=== PATIENT | male | born 1995 | race Caucasian/White ===

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

== ENCOUNTER 2017-05-23 08:37 | Emergency (ER) | payer OTHER ==
[~2017-05-23] VITALS: Ht 177.8 cm; Wt 76.7 kg
[~2017-05-23 08:37] MED LIST changes: +RANI150T9 PO; +SUCR1TAB56 PO
[2017-05-23 08:41] VITALS: Ht 177.8 cm; Wt 76.7 kg
[2017-05-23] MEDS ORDERED: SOD CHLORIDE 0.9% 1,000 ML IV STA (09:08)
--- NOTE | 2017-05-23 09:12 | ERD ---
ER Documentation Chief Complaint Chief Complaint PT with AP, vomiting and SOB since this morning. HPI 21-year-old male presents with a chief complaints of abdominal pain and vomiting 2 starting at 4 hours ago. Patient has taken famotidine but has not tolerated p.o. has had symptoms like this in the past 5 months ago. Vomiting described as nonbilious. No sick contacts. Denies fever, chills, headache, neck stiffness, shortness of breath, chest pain, swelling, diarrhea, constipation. Patient has no other complaints and describes no other associated manifestations. ROS All systems reviewed and are negative except as per history of present illness. Medications Home Meds Active Scripts Ondansetron (Ondansetron Odt) 4 Mg Tab.rapdis, 4 MG PO Q6H Y for NAUSEA AND/OR VOMITING, #10 TAB Prov:GNIA OCAMPO PA-C 05/23/17 Sucralfate* (Carafate*) 1 Gm Tab, 1 GM PO AC MEALS AND BEDTIME, #30 TAB Prov:JAMEY MONTIEL 10/09/16 Ranitidine Hcl* (Zantac*) 150 Mg Tablet, 150 MG PO BID Y for EPIGASTRIC PAIN, # 30 TAB Prov:JAMEY MONTIEL 10/09/16 Reported Medications [Denies] No Conflict Check 04/23/10 Allergies Allergies: Coded Allergies: No Known Drug Allergy (Verified Allergy, Mild, 04/23/10) PMhx/Soc History of Surgery: No Anesthesia Reaction: No Hx Neurological Disorder: No Hx Respiratory Disorders: No Hx Cardiac Disorders: No Hx Psychiatric Problems: No Hx Miscellaneous Medical Probl: No Hx Alcohol Use: No Hx Substance Use: No Hx Tobacco Use: No Physical Exam Vitals Vital Signs Date Time Temp Pulse Resp B/P Pulse Ox O2 Delivery O2 Flow Rate FiO2 05/23/17 11:31 71 18 129/71 99 Room Air 05/23/17 08:41 97.5 84 20 125/77 100 Physical Exam Const: Well-appearing 21-year-old male no acute distress Head: Atraumatic Eyes: Normal Conjunctiva. No jaundice. PERRLA, EOMI, no nystagmus. ENT: Normal External Ears, Nose and Mouth. Oropharynx clear. Neck: Full range of motion..~ No meningismus.. No masses palpated. Resp: Clear to auscultation bilaterally Cardio: Regular rate and rhythm, no murmurs Abd: Soft, nondistended, normal bowel sounds. Mod tenderness in the left lower quadrant region. Mild to no tenderness in the left upper quadrant/ epigastric regions. Negative psoas, obturator, Interiano's signs. No McBurney's point tenderness. No rebound tenderness or guarding. Skin: No petechiae or rashes. No jaundice. Back: No midline or flank tenderness. No CVA tenderness. Ext: No cyanosis, or edema Neur: Awake and alert Psych: Normal Mood and Affect Result Diagram: 05/23/1792705/23/17927 Results 24 hrs Laboratory Tests Test 05/23/17 09:28 White Blood Count 17.210^3/ul Red Blood Count 5.3410^6/ul Hemoglobin 16.1g/dl Hematocrit 46.8% Mean Corpuscular Volume 87.6fl Mean Corpuscular Hemoglobin 30.1pg Mean Corpuscular Hemoglobin Concent 34.4g/dl Red Cell Distribution Width 12.3% Platelet Count 37880^3/UL Mean Platelet Volume 11.9fl Neutrophils % 84.4% Lymphocytes % 9.1% Monocytes % 5.8% Eosinophils % 0.1% Basophils % 0.2% Nucleated Red Blood Cells % 0.0/100WBC Neutrophils # 14.510^3/ul Lymphocytes # 1.610^3/ul Monocytes # 1.010^3/ul Eosinophils # 0.010^3/ul Basophils # 0.010^3/ul Nucleated Red Blood Cells # 0.010^3/ul Prothrombin Time 12.4Sec Prothrombin Time Ratio 1.0 INR International Normalized Ratio 0.92 Activated Partial Thromboplast Time 26.6Sec Urine Color YELLOW Urine Clarity CLEAR Urine pH 5.0 Urine Specific [place] 1.026 Urine Ketones 1+mg/dL Urine Nitrite NEGATIVEmg/dL Urine Bilirubin NEGATIVEmg/dL Urine Urobilinogen NEGATIVEmg/dL Urine Leukocyte Esterase NEGATIVELeu/ul Urine Microscopic RBC 0/HPF Urine Microscopic WBC 1/HPF Urine Mucus FEW/HPF Urine Hemoglobin 1+mg/dL Urine Glucose NEGATIVEmg/dL Urine Total Protein NEGATIVEmg/dl Sodium Level 146mmol/L Potassium Level 3.5mmol/L Chloride Level 107mmol/L Carbon Dioxide Level 25mmol/L Anion Gap 18 Blood Urea Nitrogen 15mg/dl Creatinine 0.70mg/dl Glucose Level 108mg/dl Calcium Level 9.8mg/dl Total Bilirubin 0.7mg/dl Direct Bilirubin 0.00mg/dl Indirect Bilirubin 0.7mg/dl Aspartate Amino Transf (AST/SGOT) 105IU/L Alanine Aminotransferase (ALT/SGPT) 85IU/L Alkaline Phosphatase 124IU/L Total Protein 8.2g/dl Albumin 4.5g/dl Globulin 3.70g/dl Albumin/Globulin Ratio 1.21 Lipase 74U/L Current Medications Medications (Trade) Dose Ordered Sig/Eugenio Route PRN Reason Start Time Stop Time Status Last Admin Dose Admin Sodium Chloride (NS) 1,000 ml @ 1,000 mls/hr Q1H STAT IV 05/23/17 09:08 05/23/17 10:07 DC 05/23/17 09:29 Miscellaneous Medication (Gi Cocktail (2)) 40 ml ONCE ONCE PO 05/23/17 09:30 05/23/17 09:31 DC 05/23/17 09:29 Procedures/MDM 21-year-old male presents with a chief complaint of abdominal pain. Recent alcohol abuse. Labs obtained showed elevated liver enzymes and alk phos. No right upper quadrant tenderness or jaundice and I do not believe that ultrasound is necessary at this time as increased enzymes are most likely secondary to alcohol abuse. I have little suspicion for biliary involvement. CT was obtained due to leukocytosis with left shift. CT was read by the radiologist given the following impression: No acute intra-abdominal process identified. No evidence of bowel obstruction or appendicitis. No renal or ureteral stone. Most of the diagnosis is gastritis versus abdominal pain of unknown etiology. I recommended that the patient follow-up in 8 hours for reevaluation. The patient is well-appearing and tolerates p.o. Repeat abdominal examination was unremarkable for any tenderness. I have little suspicion for ascending cholangitis, cholecystitis, pancreatitis, testicular torsion, mesenteric ischemia, or other acute abdomen. I have spoke with the patient regarding their condition and future management. They have verbally responded that they understand their status and treatment plan. The patients vitals are stable, and their current condition is appropriate for discharge. The patient will be given discharge instructions with return precautions. Discharge medications: Zofran Departure Diagnosis: Primary Impression: Abdominal pain Abdominal location: generalized Qualified Code: R10.84 - Generalized abdominal pain Condition: Stable Additional Instructions: Return in 8 hours for reevaluation. Return the the emergency department immediately if symptoms worsen or change. If you have any questions regarding medications, ask your pharmacist or us before you leave. If any adverse reactions occur while taking your medications, discontinue the treatment and return to the emergency department immediately. Take your medications as directed, and complete the entire course of treatment. GINA OCAMPO PA-C May 23, 2017 09:12
[2017-05-23] MEDS ORDERED: LIDOCAINE/MYLANTA 40 ML BTL PO ONE (09:30)
[2017-05-23 09:47] LABS: BASOPHILS % 0.2 % (0.0-2.0); EOSINOPHILS % 0.1 % (0.0-7.0); HEMATOCRIT 46.8 % (42.0-52.0); HEMOGLOBIN 16.1 g/dl (14.0-18.0); LYMPHOCYTES # 1.6 10^3/ul (0.8-2.9); LYMPHOCYTES % 9.1 % (18.0-55.0); MEAN CORPUSCULAR HEMOGLOBIN 30.1 pg (29.0-33.0); MEAN CORPUSCULAR HGB CONC 34.4 g/dl (32.0-37.0); MEAN CORPUSCULAR VOLUME 87.6 fl (72.0-104.0); MEAN PLATELET VOLUME 11.9 fl (7.4-10.4); MONOCYTES % 5.8 % (0.0-13.0); NEUTROPHIL # 14.5 10^3/ul (1.6-7.5); NEUTROPHILS % 84.4 % (30.0-74.0); PLATELET COUNT 210 10^3/UL (140-415); RED BLOOD COUNT 5.34 10^6/ul (4.70-6.10); RED CELL DISTRIBUTION WIDTH 12.3 % (11.5-14.5); WHITE BLOOD COUNT 17.2 10^3/ul (4.8-10.8)
[2017-05-23 09:58] LABS: ADD UMIC YES; UR ASCORBIC ACID NEGATIVE (NEGATIVE); UR BILIRUBIN (Dip) NEGATIVE (NEGATIVE); UR BLOOD (Dip) 1+ mg/dL (NEGATIVE); UR CLARITY CLEAR (CLEAR); UR COLOR YELLOW (YELLOW); UR GLUCOSE (Dip) NEGATIVE (NEGATIVE); UR KETONES (Dip) 1+ mg/dL (NEGATIVE); UR LEUKOCYTE ESTERASE (Dip) NEGATIVE Leu/ul (NEGATIVE); UR MUCUS FEW /HPF (NONE SEEN); UR NITRITE (Dip) NEGATIVE (NEGATIVE); UR RBC 0 /HPF (0-5); UR SPECIFIC GRAVITY (Dip) 1.026 (1.003-1.030); UR TOTAL PROTEIN (Dip) NEGATIVE (NEGATIVE); UR UROBILINOGEN (Dip) NEGATIVE (NEGATIVE)
[2017-05-23 10:09] LABS: ALBUMIN 4.5 g/dl (3.3-4.9); ALBUMIN/GLOBULIN RATIO 1.21; BILIRUBIN,INDIRECT 0.7 mg/dl (0-1.1); BILIRUBIN,TOTAL 0.7 mg/dl (0.2-1.3); CALCIUM 9.8 mg/dl (8.4-10.2); CREATININE 0.7 mg/dl (0.61-1.24); POTASSIUM 3.5 mmol/L (3.5-5.1); TOTAL PROTEIN 8.2 g/dl (6.1-8.1)
[2017-05-23 10:12] LABS: INR 0.92; PROTIME 12.4 Sec (11.9-14.9)
[2017-05-23 10:13] LABS: PARTIAL THROMBOPLASTIN TIME 26.6 Sec (25.0-35.0)
--- NOTE | 2017-05-23 10:57 | RADRPT ---
PROCEDURE: CT Abdomen and Pelvis without contrast. CLINICAL INDICATION: Abdominal pain TECHNIQUE: CT scan of the abdomen and pelvis was performed on a multidetector high-resolution CT s canner without intravenous contrast. Coronal and sagittal reformatted images were obtained from the axial source images. Images were reviewed on a high-resolution PACS workstation. The total exam CTD I equals 10mGy and the total exam DLP equals 538mGy-cm. One or more of the following dose reduction techniques were used: Automated exposure control, Adjustment of the mA and/or kV according to patien t size, and/or use of iterative reconstruction technique. DICOM images are available. COMPARISON: None. FINDINGS: Evaluation of the solid organs is limited given the lack of intravenous contrast administration. The lung bases are clear. The liver, pancreas, spleen, and adrenals are grossly unremarkable. No focal pericholecystic inflammatory changes. No hydronephrosis. No renal or ureteral stone. No bowel obstruction. Normal-caliber appendix. No significant retroperitoneal lymphadenopathy, ascites or evidence of pneumoperitoneum. IMPRESSION: No acute intra-abdominal process identified. No evidence of bowel obstruction or appendicitis. No renal or ureteral stone. RPTAT: AA .Onur Bond MD, MD Date Time Electronically viewed and signed by .Onur Bond MD, on 05/23/2017 10:56 .T/
[2017-05-23] MEDS ORDERED: ONDA4TAB14 PO (11:08)
[2017-05-23 11:31] VITALS: BP 129/71; PULSE 71; RESP 18
== END 2017-05-23 11:32 | disposition home or self-care (01) ==
LOC: FTE 08:37
DX: R10.84 Generalized abdominal pain (principal)
CPT/HCPCS: 36415; 74176; 80053; 81001; 83690; 85025; 85610; 85730; J7030; Z7502; Z7610

== ENCOUNTER 2017-05-23 19:16 | Inpatient (IN) | payer OTHER ==
[~2017-05-23] VITALS: Ht 175.3 cm; Wt 76.0 kg
[~2017-05-23 19:16] MED LIST changes: +ONDA4TAB14 PO
[2017-05-23] MEDS ORDERED: morphine 4 MG/ML VIAL IV STA (20:14)
[2017-05-23] MEDS ORDERED: SOD CHLORIDE 0.9% 1,000 ML IV STA (20:14)
[2017-05-23] MEDS ORDERED: ONDANSETRON 4 MG INJ IV STA ×2 (20:14→21:23)
--- NOTE | 2017-05-23 21:02 | ERD ---
ER Documentation Chief Complaint Chief Complaint was instructed to return in 8 hours, c/o abd pain w/ vomiting HPI This is a 21-year-old male presents to the ER with left lower quadrant abdominal pain that radiates to his epigastric area which started earlier this morning at 5 AM. Patient came to the ER and was worked up and told to return for abdominal pain recheck. Patient states that pain is significantly worse and he continues to have severe nonbilious nonbloody vomiting. He denies any diarrhea. He denies fevers or chills. Patient did drink a lot of alcohol recently. He has any testicular pain he denies any chest pain or shortness of breath. She denies any constipation and had a normal bowel movement earlier today. Is described as sharp and constant. ROS 12 point review of systems was done, all negative except per HPI. Medications Home Meds Active Scripts Ondansetron (Ondansetron Odt) 4 Mg Tab.rapdis, 4 MG PO Q6H Y for NAUSEA AND/OR VOMITING, #10 TAB Prov:GINA OCAMPO PA-C 05/23/17 Sucralfate* (Carafate*) 1 Gm Tab, 1 GM PO AC MEALS AND BEDTIME, #30 TAB Prov:JAMEY MONTIEL 10/09/16 Ranitidine Hcl* (Zantac*) 150 Mg Tablet, 150 MG PO BID Y for EPIGASTRIC PAIN, # 30 TAB Prov:JAMEY MONTIEL 10/09/16 Reported Medications [Denies] No Conflict Check 04/23/10 Allergies Allergies: Coded Allergies: No Known Drug Allergy (Verified Allergy, Mild, 04/23/10) PMhx/Soc Medical and Surgical Hx: pt denies Medical Hx, pt denies Surgical Hx History of Surgery: No Anesthesia Reaction: No Hx Neurological Disorder: No Hx Respiratory Disorders: No Hx Cardiac Disorders: No Hx Psychiatric Problems: No Hx Miscellaneous Medical Probl: No Hx Alcohol Use: No Hx Substance Use: No Hx Tobacco Use: No Smoking Status: Never smoker Physical Exam Vitals Vital Signs Date Time Temp Pulse Resp B/P Pulse Ox O2 Delivery O2 Flow Rate FiO2 05/23/17 19:24 97.6 109 20 128/74 98 Physical Exam GENERAL: The patient is well developed and appropriate for usual state of health , in no apparent distress. HEENT: Atraumatic. CHEST: Clear to auscultation bilaterally. There are no rales, wheezes or rhonchi. HEART: Regular rate and rhythm. No murmurs, clicks, rubs or gallops. ABDOMEN: ttp throughout entire abdomen. Good bowel sounds. No rebound or guarding. No gross peritonitis. No gross organomegaly or masses. No Interiano sign or McBurney point tenderness. BACK: No midline or flank tenderness. NEURO: Alert and oriented. . SKIN: There is no apparent rash or petechia. The skin is warm and dry. Result Diagram: 05/23/17202905/23/172029 Results 24 hrs Laboratory Tests Test 05/23/17 20:30 White Blood Count 21.210^3/ul Red Blood Count 6.0310^6/ul Hemoglobin 18.2g/dl Hematocrit 52.5% Mean Corpuscular Volume 87.1fl Mean Corpuscular Hemoglobin 30.2pg Mean Corpuscular Hemoglobin Concent 34.7g/dl Red Cell Distribution Width 12.1% Platelet Count 52781^3/UL Mean Platelet Volume 11.8fl Neutrophils % 84.7% Lymphocytes % 8.7% Monocytes % 5.8% Eosinophils % 0.0% Basophils % 0.2% Nucleated Red Blood Cells % 0.0/100WBC Neutrophils # 17.910^3/ul Lymphocytes # 1.910^3/ul Monocytes # 1.210^3/ul Eosinophils # 0.010^3/ul Basophils # 0.010^3/ul Nucleated Red Blood Cells # 0.010^3/ul Sodium Level 144mmol/L Potassium Level 3.4mmol/L Chloride Level 103mmol/L Carbon Dioxide Level 27mmol/L Anion Gap 17 Blood Urea Nitrogen 9mg/dl Creatinine 0.86mg/dl Glucose Level 176mg/dl Calcium Level 10.0mg/dl Total Bilirubin 2.5mg/dl Direct Bilirubin 0.70mg/dl Indirect Bilirubin 1.8mg/dl Aspartate Amino Transf (AST/SGOT) 525IU/L Alanine Aminotransferase (ALT/SGPT) 518IU/L Alkaline Phosphatase 161IU/L Troponin I < 0.012ng/ml Total Protein 8.5g/dl Albumin 5.0g/dl Globulin 3.50g/dl Albumin/Globulin Ratio 1.42 Lipase 79656H/L Current Medications Medications (Trade) Dose Ordered Sig/Eugenio Route PRN Reason Start Time Stop Time Status Last Admin Dose Admin Sodium Chloride (NS) 1,000 ml @ 1,000 mls/hr Q1H STAT IV 05/23/17 20:14 05/23/17 21:13 DC 05/23/17 20:38 Morphine Sulfate (morphine) 6 mg ONCE STAT IV 05/23/17 20:14 05/23/17 20:20 DC 05/23/17 20:38 Ondansetron HCl (Zofran Inj) 4 mg ONCE STAT IV 05/23/17 20:14 05/23/17 20:20 DC 05/23/17 20:38 Ketorolac Tromethamine (Toradol) 30 mg ONCE STAT IV 05/23/17 21:06 05/23/17 21:07 DC 05/23/17 21:13 Scopolamine (Transderm-Scop) 1 patch ONCE ONCE TRANSDERM 05/23/17 21:30 05/23/17 21:31 DC 05/23/17 21:29 Ondansetron HCl 4 mg 4 mg ONCE STAT IV 05/23/17 21:23 05/23/17 21:24 DC 05/23/17 21:25 Sodium Chloride (NS) 1,000 ml @ 1,000 mls/hr Q1H ONCE IV 05/23/17 21:30 05/23/17 22:29 05/23/17 21:29 Hydromorphone HCl (Dilaudid) 1 mg ONCE STAT IV 05/23/17 22:02 05/23/17 22:03 DC 05/23/17 22:05 Procedures/MDM EKG was done [address] elevation no T-wave inversion. This EKG was read by Dr. Ly ER course patient was in a significant amount of pain and he was given morphine , Toradol and Dilaudid to control his pain. He was also given 2 L of fluids and Zofran , scopolamine patch to control his vomiting. Blood work was repeated and patient once again was noted to have elevated liver enzymes and now had elevated bilirubin with elevated lipase. Patient was ordered and there is evidence of a gallstone. Patient is likely suffering from acute cholecystitis and gallbladder pancreatitis. Patient will be admitted for further management and care. Departure Diagnosis: Primary Impression: Cholecystitis Additional Impression: Acute gallstone pancreatitis Condition: Stable SHERRIE,KEYA C May 23, 2017 21:02
[2017-05-23] MEDS ORDERED: KETOROLAC 30 MG INJ IV STA (21:06)
[2017-05-23 21:07] LABS: BASOPHILS % 0.2 % (0.0-2.0); HEMATOCRIT 52.5 % (42.0-52.0); HEMOGLOBIN 18.2 g/dl (14.0-18.0); LYMPHOCYTES # 1.9 10^3/ul (0.8-2.9); LYMPHOCYTES % 8.7 % (18.0-55.0); MEAN CORPUSCULAR HEMOGLOBIN 30.2 pg (29.0-33.0); MEAN CORPUSCULAR HGB CONC 34.7 g/dl (32.0-37.0); MEAN CORPUSCULAR VOLUME 87.1 fl (72.0-104.0); MEAN PLATELET VOLUME 11.8 fl (7.4-10.4); MONOCYTE # 1.2 10^3/ul (0.3-0.9); MONOCYTES % 5.8 % (0.0-13.0); NEUTROPHIL # 17.9 10^3/ul (1.6-7.5); NEUTROPHILS % 84.7 % (30.0-74.0); PLATELET COUNT 239 10^3/UL (140-415); RED BLOOD COUNT 6.03 10^6/ul (4.70-6.10); RED CELL DISTRIBUTION WIDTH 12.1 % (11.5-14.5); WHITE BLOOD COUNT 21.2 10^3/ul (4.8-10.8)
[2017-05-23] MEDS ORDERED: SOD CHLORIDE 0.9% 1,000 ML IV ONE (21:30)
[2017-05-23] MEDS ORDERED: SCOPOLAMINE 1.5 MG PATCH TRANSDERM ONE (21:30)
[2017-05-23 21:36] LABS: ALBUMIN/GLOBULIN RATIO 1.42; BILIRUBIN,DIRECT 0.7 mg/dl (0.00-0.20); BILIRUBIN,INDIRECT 1.8 mg/dl (0-1.1); BILIRUBIN,TOTAL 2.5 mg/dl (0.2-1.3); CREATININE 0.86 mg/dl (0.61-1.24); POTASSIUM 3.4 mmol/L (3.5-5.1); TOTAL PROTEIN 8.5 g/dl (6.1-8.1)
--- NOTE | 2017-05-23 21:45 | RADRPT ---
PROCEDURE: US Abdomen Right Upper Quadrant. CLINICAL INDICATION: Abdominal pain TECHNIQUE: Multiple real-time longitudinal and transverse images were acquired of the patient's [facility] upper quadrant abdomen utilizing a curved array transducer. COMPARISON: Previous CT done earlier on the same date. The previous CT was unremarkable. FINDINGS: Liver: normal in size and echotexture. There is no focal lesion. The hepatic and portal veins appea r patent and there is normal directional flow in the main portal vein Gallbladder: A 1.7 cm in diameter gallstone is seen within the gallbladder neck. There is some sludg e layering within the gallbladder. The gallbladder wall is not thickened measuring 2.4 mm. Bile ducts: There is no significant intra or extrahepatic bile duct dilatation. No choledocholiths a re seen within the visualized portions. The common bile duct measures 4.7 mm in cross diameter. Pancreas: The visualized head and body of the pancreas appear prominent in size. The possibility of acute pancreatitis. Right adrenal : No mass is identified. Right kidney: Normal in echotexture andl in size. The right kidney measures 10.7 cm in length. No ma ss, pathological calcification, or hydronephrosis is evident. Peritoneum: There is no free intraperitoneal fluid IMPRESSION: 1. A 1.7 cm in diameter gallstone is seen within the gallbladder neck and sludge is seen to layer w ithin the gallbladder. The gallbladder wall is not thickened. 2. No bile duct dilatation is evident but the visualized head and body of the pancreas appear promi nent for which mild acute pancreatitis cannot be excluded. 3. The liver and right kidney appear unremarkable. 4. No free intraperitoneal fluid is identified. Physician Gio Date Time Electronically viewed and signed by Physician Gio on 05/23/2017 21:44 /
[2017-05-23] MEDS ORDERED: HYDROmorphONE 1 MG/ML SYG IV STA (22:02)
[2017-05-23] MEDS ORDERED: PIPER-TAZO 3.375 GM IV (PMX) 50 ML IV ONE (23:00)
[2017-05-23] MEDS ORDERED: NACL 0.9% 3 ML SYG IV SCH (23:30)
[2017-05-23] MEDS: SOD CHLORIDE 0.9% 1,000 ML IV SCH (23:58)
[2017-05-24] VITALS (10 sets, daily range): BP systolic 123–141; BP diastolic 66–94; PULSE 118–136; RESP 15–29; TEMP 98.3; Ht 175.3 cm; Wt 76.0 kg
[2017-05-24 00:06] LABS: PROTIME 13.3 Sec (11.9-14.9)
[2017-05-24 00:07] LABS: PARTIAL THROMBOPLASTIN TIME 23.5 Sec (25.0-35.0)
[2017-05-24] MEDS: HYDROmorphONE 0.5 MG/0.5 ML SYG IV PRN (01:17)
--- NOTE | 2017-05-24 03:11 | ERD ---
ER Documentation Chief Complaint Chief Complaint Abdominal pain HPI The patient is a 21-year-old male, was seen earlier today for abdominal pain and advised to return in 8 hours for reevaluation. The pain is worsening, associated with vomiting. He was seen in ED 2 and I was asked to see the patient due to abdominal pain. He denies fever, chills, neck pain, chest pain. The pain is diffuse but more tender at the upper abdomen, denies diarrhea, constipation, dysuria. He does not smoke nor drink Medical/surgical history: None ROS All systems reviewed and are negative except as per history of present illness. Medications Home Meds Active Scripts Ondansetron (Ondansetron Odt) 4 Mg Tab.rapdis, 4 MG PO Q6H Y for NAUSEA AND/OR VOMITING, #10 TAB Prov:GINA OCAMPO PA-C 05/23/17 Sucralfate* (Carafate*) 1 Gm Tab, 1 GM PO AC MEALS AND BEDTIME, #30 TAB Prov:JAMEY MONTIEL 10/09/16 Ranitidine Hcl* (Zantac*) 150 Mg Tablet, 150 MG PO BID Y for EPIGASTRIC PAIN, # 30 TAB Prov:JAMEY MONTIEL 10/09/16 Reported Medications [Denies] No Conflict Check 04/23/10 Allergies Allergies: Coded Allergies: No Known Drug Allergy (Verified Allergy, Mild, 04/23/10) PMhx/Soc Medical and Surgical Hx: pt denies Medical Hx, pt denies Surgical Hx History of Surgery: No Anesthesia Reaction: No Hx Neurological Disorder: No Hx Respiratory Disorders: No Hx Cardiac Disorders: No Hx Psychiatric Problems: No Hx Miscellaneous Medical Probl: No Hx Alcohol Use: No Hx Substance Use: No Hx Tobacco Use: No Smoking Status: Never smoker Physical Exam Vitals Vital Signs Date Time Temp Pulse Resp B/P Pulse Ox O2 Delivery O2 Flow Rate FiO2 05/23/17 23:20 66 16 98 Room Air 05/23/17 19:24 97.6 109 20 128/74 98 Physical Exam Const: No acute distress. Head: Atraumatic. Eyes: Normal Conjunctiva. ENT: Normal External Ears, Nose and Mouth. Neck: Full range of motion. No meningismus. Resp: Clear to auscultation bilaterally. Cardio: Regular rate and rhythm. Abd: Soft, non distended, normal bowel sounds, diffuse abdominal tenderness, more tenderness at epigastric and right upper quadrant, no rigidity , rebound, CVA tenderness Skin: No petechiae or rashes. Back: No midline or flank tenderness. Ext: No cyanosis, or edema. Neur: Awake and alert. No focal deficit Psych: Normal Mood and Affect. Result Diagram: 05/23/17202905/23/172029 Results 24 hrs Laboratory Tests Test 05/23/17 20:30 White Blood Count 21.210^3/ul Red Blood Count 6.0310^6/ul Hemoglobin 18.2g/dl Hematocrit 52.5% Mean Corpuscular Volume 87.1fl Mean Corpuscular Hemoglobin 30.2pg Mean Corpuscular Hemoglobin Concent 34.7g/dl Red Cell Distribution Width 12.1% Platelet Count 15607^3/UL Mean Platelet Volume 11.8fl Neutrophils % 84.7% Lymphocytes % 8.7% Monocytes % 5.8% Eosinophils % 0.0% Basophils % 0.2% Nucleated Red Blood Cells % 0.0/100WBC Neutrophils # 17.910^3/ul Lymphocytes # 1.910^3/ul Monocytes # 1.210^3/ul Eosinophils # 0.010^3/ul Basophils # 0.010^3/ul Nucleated Red Blood Cells # 0.010^3/ul Prothrombin Time 13.3Sec Prothrombin Time Ratio 1.0 INR International Normalized Ratio 1.00 Activated Partial Thromboplast Time 23.5Sec Sodium Level 144mmol/L Potassium Level 3.4mmol/L Chloride Level 103mmol/L Carbon Dioxide Level 27mmol/L Anion Gap 17 Blood Urea Nitrogen 9mg/dl Creatinine 0.86mg/dl Glucose Level 176mg/dl Calcium Level 10.0mg/dl Total Bilirubin 2.5mg/dl Direct Bilirubin 0.70mg/dl Indirect Bilirubin 1.8mg/dl Aspartate Amino Transf (AST/SGOT) 525IU/L Alanine Aminotransferase (ALT/SGPT) 518IU/L Alkaline Phosphatase 161IU/L Troponin I < 0.012ng/ml Total Protein 8.5g/dl Albumin 5.0g/dl Globulin 3.50g/dl Albumin/Globulin Ratio 1.42 Lipase 10757G/L Current Medications Medications (Trade) Dose Ordered Sig/Eugenio Route PRN Reason Start Time Stop Time Status Last Admin Dose Admin Sodium Chloride (NS) 1,000 ml @ 1,000 mls/hr Q1H STAT IV 05/23/17 20:14 05/23/17 21:13 DC 05/23/17 20:38 Morphine Sulfate (morphine) 6 mg ONCE STAT IV 05/23/17 20:14 05/23/17 20:20 DC 05/23/17 20:38 Ondansetron HCl (Zofran Inj) 4 mg ONCE STAT IV 05/23/17 20:14 05/23/17 20:20 DC 05/23/17 20:38 Ketorolac Tromethamine (Toradol) 30 mg ONCE STAT IV 05/23/17 21:06 05/23/17 21:07 DC 05/23/17 21:13 Scopolamine (Transderm-Scop) 1 patch ONCE ONCE TRANSDERM 05/23/17 21:30 05/23/17 21:31 DC 05/23/17 21:29 Ondansetron HCl 4 mg 4 mg ONCE STAT IV 05/23/17 21:23 05/23/17 21:24 DC 05/23/17 21:25 Sodium Chloride (NS) 1,000 ml @ 1,000 mls/hr Q1H ONCE IV 05/23/17 21:30 05/23/17 22:29 DC 05/23/17 21:29 Hydromorphone HCl 1 mg 1 mg ONCE STAT IV 05/23/17 22:02 05/23/17 22:03 DC 05/23/17 22:05 Piperacillin Sod/ Tazobactam Sod (Zosyn 3.375gm/ 50 ml (Pmx)) 50 ml @ 100 mls/hr ONCE ONCE IV 05/23/17 23:00 05/23/17 23:29 DC 05/23/17 22:40 Procedures/[place] [id number] Radiology Main Line: [phone] DIAGNOSTIC IMAGING REPORT Patient: SAHIL RIVAS : 1995 Age: 21 Sex: M MR #: [id number] DOS: 05/23/172013 Ordering MD: KEYA BALDERAS PA-C Location: [facility] Room/Bed: PROCEDURE: US Abdomen Right Upper Quadrant. CLINICAL INDICATION: Abdominal pain TECHNIQUE: Multiple real-time longitudinal and transverse images were acquired of the patient's right upper quadrant abdomen utilizing a curved array transducer. COMPARISON: Previous CT done earlier on the same date. The previous CT was unremarkable. FINDINGS: Liver: normal in size and echotexture. There is no focal lesion. The hepatic and portal veins appear patent and there is normal directional flow in the main portal vein Gallbladder: A 1.7 cm in diameter gallstone is seen within the gallbladder neck. There is some sludge layering within the gallbladder. The gallbladder wall is not thickened measuring 2.4 mm. Bile ducts: There is no significant intra or extrahepatic bile duct dilatation. No choledocholiths are seen within the visualized portions. The common bile duct measures 4.7 mm in cross diameter. Pancreas: The visualized head and body of the pancreas appear prominent in size. The possibility of acute pancreatitis. Right adrenal : No mass is identified. Right kidney: Normal in echotexture andl in size. The right kidney measures 10.7 cm in length. No mass, pathological calcification, or hydronephrosis is evident. Peritoneum: There is no free intraperitoneal fluid IMPRESSION: 1. A 1.7 cm in diameter gallstone is seen within the gallbladder neck and sludge is seen to layer within the gallbladder. The gallbladder wall is not thickened. 2. No bile duct dilatation is evident but the visualized head and body of the pancreas appear prominent for which mild acute pancreatitis cannot be excluded. 3. The liver and right kidney appear unremarkable. 4. No free intraperitoneal fluid is identified. Physician Gio Date Time Electronically viewed and signed by Physician Gio on 05/23/2017 21:44 RH/ CC: KEYA BALDERAS EKG: Read by emergency physician Rate/Rhythm: Normal Sinus Rhythm 66 beats/min QRS, ST, T-waves: No ST elevation, no T inversion, RWA Impression: Abnormal EKG He already had a CT scan abdominopelvic earlier today MEDICAL MAKING DECISION: The patient is a 21-year-old male, presenting with acute gallstone pancreatitis, suspected choledocholithiasis, acute hypokalemia. He was treated with Zosyn IV for acute gallstone pancreatitis, 1 L normal saline IV for clinical dehydration, Dilaudid 1 mg IV, Toradol 30 mg IV, morphine 6 mg IV for pain and Zofran 4 mg IV for nausea and potassium chloride 20 mEq IV for acute hypokalemia with good response The differential diagnoses considered include but are not limited to cholelithiasis, cholecystitis, cystitis, pancreatitis, hepatitis, gastritis, peptic ulcer disease, gastric ulcer, appendicitis, diverticulitis, cholangitis, choledocholithiasis, partial small bowel obstruction. Consultation: I discussed the patient with the on-call general surgeon at 11:20 pm, who was made aware of the labs, the treatment, the patient condition. He accepted the consult I discussed the patient with the GI Dr Schultz, who was made aware of the labs, the treatment, the patient condition. He accepted the consult Departure Diagnosis: Primary Impression: Acute gallstone pancreatitis Additional Impressions: Hypokalemia Abnormal LFTs Condition: Stable Comments I discussed the findings with the patient. I discussed the patient with the hospitalist Dr. Reyes at 11:25 PM who was made aware of the lab, the treatment , my discussion with the surgeon. He asked me to contact Dr. Schultz. The patient is admitted to [facility] Disclaimer: Inadvertent spelling and grammatical errors are likely due to EHR/ dictation software use and do not reflect on the overall quality of patient care. Also, please note that the electronic time recorded on this note does not necessarily reflect the actual time of the patient encounter. GINA MARIANO MD May 24, 2017 03:10
[2017-05-24] MEDS: HYDROmorphONE 1 MG/ML SYG IV PRN ×6 (04:22→21:08)
[2017-05-24] MEDS: SOD CHLORIDE 0.9% 1,000 ML IV SCH ×6 (04:22→23:28)
--- NOTE | 2017-05-24 04:47 | HP ---
Date/Time of Note Date/Time of Note DATE: 05/24/17 TIME: 04:32 Assessment/Plan VTE Prophylaxis VTE Prophylaxis Intervention: SCD's Lines/Catheters IV C[facility]ter Type [facility]from [facility]): Peripheral IV Urinary Cath still in place: No Assessment/Plan Chief Complaint/Hosp Course This is a 21-year-old male being admitted to the [facility] floor for: #1 gallstone pancreatitis: Ultrasound of the gallbladder showed a 1.7 cm gallstone at the neck of the gallbladder and signs of acute pink otitis. Patient's lipase is markedly elevated at 56,273. He also has an obstructive pattern of his LFTs. The current time we will keep the patient n.p.o. for bowel rest. Will provide him aggressive IV fluid hydration. Dilaudid for pain control. Will order MRCP for the a.m. General surgery and GI have been consulted via the ED. Check lipid panel and ethanol level. #2 leukocytosis: At the current time patient is afebrile. There are no signs of acute cholecystitis on the gallbladder ultrasound. He did receive a dose of Zosyn in the ED. At the current time I will hold off on giving any further antibiotics as I think this may be reactive in nature. Will repeat CBC in the a.m. any signs of infection will initiate antibiotics again. #3 DVT GI prophylaxis: SCDs, no GI prophylaxis indicated Further treatment strategy will be implemented as per the clinical course Problems: HPI/ROS Admit Date/Time Admit Date/Time May 23, 2017 at 23:23 Hx of Present Illness Chief complaint: Abdominal pain This is a 21-year-old male presents to the ER with left lower quadrant abdominal pain that radiates to his epigastric area which started earlier this morning at 5 AM. Patient came to the ER and was worked up and told to return for abdominal pain recheck. Patient states that pain is significantly worse and he continues to have severe nonbilious nonbloody vomiting. He stated the pain is sharp constant. He denies any diarrhea. He denies fevers or chills. Patient did drink a lot of alcohol recently. he denies any chest pain or shortness of breath. She denies any constipation and had a normal bowel movement earlier today. Allergies: NKDA Medications: See KENDAL WILKINSON Const: As per HPI Eyes : No pain discharge or redness or change in visual acuity ENT: No pain, sore throat, congestion, congestion, dysphagia or discharge Respiratory: No shortness of breath, cough, sputum, wheezing, or pleuritic pain Cardiovascular: No chest pain, palpitation, PND, or edema GI : As per HPI Genitourinary: No dysuria, hematuria, flank pain , discharge or CVA tenderness Musculoskeletal: No joint pain, back pain, neck pain, restricted range of motion in neck or joints Skin: No rash, bruising or hives Neuro: No headache, dizziness, syncope, seizure, focal weakness Endocrine: No polyuria, polydipsia, temperature intolerance Psych: No hallucination, depression, anxiety or suicidal ideation PMH/Family/Social Past Medical History Medical History: no pertinent history Past Surgical History Past Surgical Hx: no surgical history Family History Significant Family History: no pertinent family hx Social History Alcohol Use: occasionally Smoking Status: Never smoker Drug Use: none Exam/Review of Systems Vital Signs Vitals Vital Signs Date Time Temp Pulse Resp B/P Pulse Ox O2 Delivery O2 Flow Rate FiO2 05/24/17 03:06 98.4 67 18 141/66 100 05/24/17 00:04 Room Air Exam Exam General: She is lying in bed in moderate distress from pain in the abdomen HEENT: Atraumatic, normocephalic. The pupils are equal, round and reactive. Extraocular motor are intact Neck: Supple with full range of motion. No rigidity or meningismus Chest: Nontender Lungs: Clear to auscultation bilaterally no crackles rales or wheezing Heart: Normal S1-S2, Regular rhythm and rate. No murmur, S3, or S4 Abdomen: Soft, tender to palpation at the epigastric and right upper quadrant region, normal bowel sounds Extremities: Normal to inspection, no edema no cyanosis Neurologic: Normal mental status, speech normal, cranial nerves II through XII are intact, motor and sensory are intact, no focal weakness Additional Comments PROCEDURE: US Abdomen Right Upper Quadrant. CLINICAL INDICATION: Abdominal pain TECHNIQUE: Multiple real-time longitudinal and transverse images were acquired of the patient's right upper quadrant abdomen utilizing a curved array transducer. COMPARISON: Previous CT done earlier on the same date. The previous CT was unremarkable. FINDINGS: Liver: normal in size and echotexture. There is no focal lesion. The hepatic and portal veins appear patent and there is normal directional flow in the main portal vein Gallbladder: A 1.7 cm in diameter gallstone is seen within the gallbladder neck. There is some sludge layering within the gallbladder. The gallbladder wall is not thickened measuring 2.4 mm. Bile ducts: There is no significant intra or extrahepatic bile duct dilatation. No choledocholiths are seen within the visualized portions. The common bile duct measures 4.7 mm in cross diameter. Pancreas: The visualized head and body of the pancreas appear prominent in size. The possibility of acute pancreatitis. Right adrenal : No mass is identified. Right kidney: Normal in echotexture andl in size. The right kidney measures 10.7 cm in length. No mass, pathological calcification, or hydronephrosis is evident. Peritoneum: There is no free intraperitoneal fluid IMPRESSION: 1. A 1.7 cm in diameter gallstone is seen within the gallbladder neck and sludge is seen to layer within the gallbladder. The gallbladder wall is not thickened. 2. No bile duct dilatation is evident but the visualized head and body of the pancreas appear prominent for which mild acute pancreatitis cannot be excluded. 3. The liver and right kidney appear unremarkable. 4. No free intraperitoneal fluid is identified. Physician Gio Date Time Electronically viewed and signed by Physician Gio on 05/23/2017 21:44 RH/ CC: KEYA BALDERAS Labs Result Diagram: 05/23/17202905/23/172029 Medications Medications Current Medications Sodium Chloride (NS) 1,000 ml @ 250 mls/hr Q4H IV Last administered on t 04:22; Admin Dose 250 MLS/HR; Start 05/23/17 at 23:28 Ondansetron HCl (Zofran Inj) 4 mg Q6H PRN IV NAUSEA AND/OR VOMITING; Start 05/23/17 at 23:30 Metoclopramide HCl (Reglan) 10 mg Q6H PRN IV NAUSEA AND/OR VOMITING; Start 05/23/17 at 23:30 Acetaminophen (Tylenol Tab) 650 mg Q6H PRN PO PAIN LEVEL 1-3 OR FEVER; Start 05/23/17 at 23:30 Hydromorphone HCl (Dilaudid) 0.5 mg Q4H PRN IV SEVERE PAIN LEVEL 7-10 Last administered on 05/24/17 01:17; Admin Dose 0.5 MG; Start 05/23/17 at 23:30 Influenza Virus Vaccine (Fluzone) 0.5 ml ONCE ONCE IM* ; Start 05/25/17 at 09:00 ; Stop 05/25/17 at 09:01 Hydromorphone HCl (Dilaudid) 1 mg Q3H PRN IV PAIN Last administered on 04:22; Admin Dose 1 MG; Start 05/24/17 at 04:15 RADHA KING May 24, 2017 04:43
[2017-05-24 05:15] LABS: ABNORMAL IP MESSAGE 1; BASOPHILS % 0.1 % (0.0-2.0); HEMATOCRIT 46.9 % (42.0-52.0); HEMOGLOBIN 16.4 g/dl (14.0-18.0); LYMPHOCYTES # 0.6 10^3/ul (0.8-2.9); LYMPHOCYTES % 3.8 % (18.0-55.0); MEAN CORPUSCULAR HEMOGLOBIN 30.4 pg (29.0-33.0); MEAN PLATELET VOLUME 11.8 fl (7.4-10.4); MONOCYTE # 1.1 10^3/ul (0.3-0.9); MONOCYTES % 7.5 % (0.0-13.0); NEUTROPHIL # 12.9 10^3/ul (1.6-7.5); NEUTROPHILS % 88.2 % (30.0-74.0); PLATELET COUNT 175 10^3/UL (140-415); POSITIVE DIFF @See below; RED BLOOD COUNT 5.39 10^6/ul (4.70-6.10); RED CELL DISTRIBUTION WIDTH 12.3 % (11.5-14.5); WHITE BLOOD COUNT 14.6 10^3/ul (4.8-10.8)
[2017-05-24 05:57] LABS: ALBUMIN 3.6 g/dl (3.3-4.9); ALBUMIN/GLOBULIN RATIO 1.12; BILIRUBIN,DIRECT 0.1 mg/dl (0.00-0.20); BILIRUBIN,INDIRECT 1.9 mg/dl (0-1.1); CALCIUM 8.6 mg/dl (8.4-10.2); CHOL/HDL RATIO 2.7 RATIO; CREATININE 0.77 mg/dl (0.61-1.24); MAGNESIUM 1.8 mg/dl (1.7-2.5); POTASSIUM 3.9 mmol/L (3.5-5.1); TOTAL PROTEIN 6.8 g/dl (6.1-8.1)
[2017-05-24 06:21] LABS: THYROID STIMULATING HORMONE 0.766 MIU/L (0.465-4.680)
[2017-05-24] MEDS: METOCLOPRAMIDE 10 MG INJ IV PRN (07:59)
--- NOTE | 2017-05-24 11:48 | CONS ---
Date/Time of Note Date/Time of Note DATE: 05/24/17 TIME: 11:42 Assessment/Plan Assessment/Plan Problems: (1) Acute gallstone pancreatitis Status: Acute Additional Assessment/Plan 21M acute gallstone pancreatitis. afebrile, HD stable, leukocytosis improving, LFT's improving. Ultrasound findings as above. exam as above. -NPO -IV fluids -medical management of pancreatitis. once resolved will need cholecystectomy. recommend during this hospitalization. -await GI input. thank you Consultation Date/Type/Reason Admit Date/Time May 23, 2017 at 23:23 Type of Consultation: surgery Reason for Consultation gallstone pancreatitis Hx of Present Illness 21 year old otherwise healthy male presents with acute onset of epigastric/ upper abdominal pain x 1 day. As per patient, he was in normal state of health until yesterday when he began to have sharp cramping 10/10 upper epigastric abdominal pain. no radiation. better with pain meds. not aggravated by anything. States had similar episode but more mild earlier this year and thought it was gastritis. Came to ED for evaluation and was noted to have leukocytosis 21k, elevated LFT's and t bili, and elevated lipase. Ultrasound demonstrated large gallstone and sludge. Surgery called to evaluate for gallstone pancreatitis. patient with family at bedside. states still having pain. no n/v/f/c. denies alcohol abuse. Constitutional: no complaints Eyes: no complaints ENT: no complaints Respiratory: no complaints Cardiovascular: no complaints Gastrointestinal: pain Genitourinary: no complaints Musculoskeletal: no complaints Skin: no complaints Neurologic: no complaints Endocrine: no complaints Lymphatic: no complaints Psychological: no complaints Immunologic: no complaints Past Medical History Medical History: no pertinent history Past Surgical History Past Surgical Hx: no surgical history Social History Alcohol Use: occasionally Smoking Status: Never smoker Drug Use: none Exam/Review of Systems Vital Signs Vitals Vital Signs Date Time Temp Pulse Resp B/P Pulse Ox O2 Delivery O2 Flow Rate FiO2 05/24/17 08:00 98.4 82 17 139/82 97 05/24/17 00:04 Room Air Intake and Output 05/23/17 05/23/17 05/24/17 15:00 23:00 07:00 Intake Total 500 ml Balance 500 ml Exam Constitutional: alert, oriented, well developed Psych: no complaints Head: normocephalic Eyes: EOMI, nl conjunctiva ENMT: nl external ears & nose Neck: supple Respiratory: clear to auscultation, normal air movement Cardiovascular: nl pulses, regular rate and rhythm Gastrointestinal: soft, tender (tender in upper abdomen without rebound or guarding ) Musculoskeletal: nl extremities to inspection Extremities: normal pulses Neurological: [employer] II-XII intact, nl mental status Results Result Diagram: 05/24/17 0451 05/24/17 0451 Results 24 hrs Laboratory Tests Test 05/23/17 20:30 05/24/17 04:51 White Blood Count 21.2 #H 14.6 #H Red Blood Count 6.03 5.39 Hemoglobin 18.2 H 16.4 Hematocrit 52.5 H 46.9 Mean Corpuscular Volume 87.1 87.0 Mean Corpuscular Hemoglobin 30.2 30.4 Mean Corpuscular Hemoglobin Concent 34.7 35.0 Red Cell Distribution Width 12.1 12.3 Platelet Count 239 175 # Mean Platelet Volume 11.8 H 11.8 H Neutrophils % 84.7 H 88.2 H Lymphocytes % 8.7 L 3.8 L Monocytes % 5.8 7.5 Eosinophils % 0.0 0.0 Basophils % 0.2 0.1 Nucleated Red Blood Cells % 0.0 0.0 Neutrophils # 17.9 H 12.9 H Lymphocytes # 1.9 0.6 L Monocytes # 1.2 H 1.1 H Eosinophils # 0.0 0.0 Basophils # 0.0 0.0 Nucleated Red Blood Cells # 0.0 0.0 Prothrombin Time 13.3 Prothrombin Time Ratio 1.0 INR International Normalized Ratio 1.00 Activated Partial Thromboplast Time 23.5 L Sodium Level 144 141 Potassium Level 3.4 L 3.9 Chloride Level 103 108 Carbon Dioxide Level 27 23 Anion Gap 17 H 14 Blood Urea Nitrogen 9 9 Creatinine 0.86 0.77 Glucose Level 176 147 Calcium Level 10.0 8.6 Total Bilirubin 2.5 H 2.0 H Direct Bilirubin 0.70 #H 0.10 # Indirect Bilirubin 1.8 H 1.9 H Aspartate Amino Transf (AST/SGOT) 525 #H 194 #H Alanine Aminotransferase (ALT/SGPT) 518 H 364 H Alkaline Phosphatase 161 H 131 H Troponin I < 0.012 Total Protein 8.5 H 6.8 # Albumin 5.0 H 3.6 # Globulin 3.50 H 3.20 Albumin/Globulin Ratio 1.42 1.12 Lipase 31220 H Hemoglobin A1c 5.1 Magnesium Level 1.8 Triglycerides Level 38 Cholesterol Level 104 LDL Cholesterol, Calculated 58 HDL Cholesterol 38 Cholesterol/HDL Ratio 2.7 Thyroid Stimulating Hormone (TSH) 0.766 Ethyl Alcohol Level < 10.0 Medications Medications Current Medications Sodium Chloride (NS) 1,000 ml @ 250 mls/hr Q4H IV Last administered on 09:09; Admin Dose 250 MLS/HR; Start 05/23/17 at 23:28 Ondansetron HCl (Zofran Inj) 4 mg Q6H PRN IV NAUSEA AND/OR VOMITING; Start 05/23/17 at 23:30 Metoclopramide HCl (Reglan) 10 mg Q6H PRN IV NAUSEA AND/OR VOMITING Last administered on 05/24/17 07:59; Admin Dose 10 MG; Start 05/23/17 at 23:30 Acetaminophen (Tylenol Tab) 650 mg Q6H PRN PO PAIN LEVEL 1-3 OR FEVER; Start 05/23/17 at 23:30 Hydromorphone HCl (Dilaudid) 0.5 mg Q4H PRN IV SEVERE PAIN LEVEL 7-10 Last administered on 05/24/17 01:17; Admin Dose 0.5 MG; Start 05/23/17 at 23:30 Influenza Virus Vaccine (Fluzone) 0.5 ml ONCE ONCE IM* ; Start 05/25/17 at 09:00 ; Stop 05/25/17 at 09:01 Hydromorphone HCl (Dilaudid) 1 mg Q3H PRN IV PAIN Last administered on 07:57; Admin Dose 1 MG; Start 05/24/17 at 04:15 BEN PACHECO MD May 24, 2017 11:48
[2017-05-24] MEDS: D5W-0.45 NACL + KCL 20 MEQ 1,000 ML IV SCH ×2 (12:01→20:00)
--- NOTE | 2017-05-24 12:34 | PN ---
Date/Time of Note Date/Time of Note DATE: 05/24/17 TIME: 12:32 Assessment/Plan VTE Prophylaxis VTE Prophylaxis Intervention: other Lines/Catheters IV C[facility] Type (from [facility]): Peripheral IV Urinary Cath still in place: No Assessment/Plan Problems: (1) Acute gallstone pancreatitis Status: Acute Comment: He has acute pancreatitis secondary to gallstone disease. Clinically it appears to be improving somewhat. No matter what he needed to be admitted to the hospital and will likely need acute surgical intervention before leaving the hospital. For now organ let him calm down and hopefully not need more than one intervention. He is appropriate for admission using [facility] criteria (2) Abnormal LFTs Status: Acute Comment: Likely due to the acute inflammatory process. However his formality will check an acute hepatitis panel (3) Cholecystitis Status: Acute Comment: As above. Please see the surgical recommendation Subjective 24 Hr Interval Summary Free Text/Dictation Yeimi 21-year-old gentleman admitted with abdominal pain and gallstone pancreatitis. At this time he reports he is feeling somewhat better but still has significant pain Constitutional: no complaints (No fevers chills or sweats) Respiratory: no complaints (Shortness of breath) Cardiovascular: no complaints Gastrointestinal: nausea, pain Genitourinary: no complaints Musculoskeletal: no complaints Skin: no complaints Neurologic: no complaints Exam/Review of Systems Vital Signs Vitals Vital Signs Date Time Temp Pulse Resp B/P Pulse Ox O2 Delivery O2 Flow Rate FiO2 05/24/17 08:00 98.4 82 17 139/82 97 05/24/17 00:04 Room Air Intake and Output 05/23/17 05/23/17 05/24/17 15:00 23:00 07:00 Intake Total 500 ml Balance 500 ml Exam Constitutional: alert, oriented Eyes: EOMI, PERRL, nl conjunctiva, nl lids, nl sclera, other (No visible icterus) Neck: non-tender, supple Respiratory: clear to auscultation, normal air movement Cardiovascular: nl pulses, regular rate and rhythm Gastrointestinal: nl liver, spleen, soft, tender (Under especially in the right upper quadrant mid quadrant) Results Result Diagram: 05/24/17 0451 05/24/17 0451 Results 24 hrs Laboratory Tests Test 05/23/17 20:30 05/24/17 04:51 White Blood Count 21.2 #H 14.6 #H Red Blood Count 6.03 5.39 Hemoglobin 18.2 H 16.4 Hematocrit 52.5 H 46.9 Mean Corpuscular Volume 87.1 87.0 Mean Corpuscular Hemoglobin 30.2 30.4 Mean Corpuscular Hemoglobin Concent 34.7 35.0 Red Cell Distribution Width 12.1 12.3 Platelet Count 239 175 # Mean Platelet Volume 11.8 H 11.8 H Neutrophils % 84.7 H 88.2 H Lymphocytes % 8.7 L 3.8 L Monocytes % 5.8 7.5 Eosinophils % 0.0 0.0 Basophils % 0.2 0.1 Nucleated Red Blood Cells % 0.0 0.0 Neutrophils # 17.9 H 12.9 H Lymphocytes # 1.9 0.6 L Monocytes # 1.2 H 1.1 H Eosinophils # 0.0 0.0 Basophils # 0.0 0.0 Nucleated Red Blood Cells # 0.0 0.0 Prothrombin Time 13.3 Prothrombin Time Ratio 1.0 INR International Normalized Ratio 1.00 Activated Partial Thromboplast Time 23.5 L Sodium Level 144 141 Potassium Level 3.4 L 3.9 Chloride Level 103 108 Carbon Dioxide Level 27 23 Anion Gap 17 H 14 Blood Urea Nitrogen 9 9 Creatinine 0.86 0.77 Glucose Level 176 147 Calcium Level 10.0 8.6 Total Bilirubin 2.5 H 2.0 H Direct Bilirubin 0.70 #H 0.10 # Indirect Bilirubin 1.8 H 1.9 H Aspartate Amino Transf (AST/SGOT) 525 #H 194 #H Alanine Aminotransferase (ALT/SGPT) 518 H 364 H Alkaline Phosphatase 161 H 131 H Troponin I < 0.012 Total Protein 8.5 H 6.8 # Albumin 5.0 H 3.6 # Globulin 3.50 H 3.20 Albumin/Globulin Ratio 1.42 1.12 Lipase 64933 H Hemoglobin A1c 5.1 Magnesium Level 1.8 Triglycerides Level 38 Cholesterol Level 104 LDL Cholesterol, Calculated 58 HDL Cholesterol 38 Cholesterol/HDL Ratio 2.7 Thyroid Stimulating Hormone (TSH) 0.766 Ethyl Alcohol Level < 10.0 Medications Medications Current Medications Sodium Chloride (NS) 1,000 ml @ 250 mls/hr Q4H IV Last administered on t 09:09; Admin Dose 250 MLS/HR; Start 05/23/17 at 23:28 Ondansetron HCl (Zofran Inj) 4 mg Q6H PRN IV NAUSEA AND/OR VOMITING; Start 05/23/17 at 23:30 Metoclopramide HCl (Reglan) 10 mg Q6H PRN IV NAUSEA AND/OR VOMITING Last administered on 05/24/17 07:59; Admin Dose 10 MG; Start 05/23/17 at 23:30 Acetaminophen (Tylenol Tab) 650 mg Q6H PRN PO PAIN LEVEL 1-3 OR FEVER; Start 05/23/17 at 23:30 Hydromorphone HCl (Dilaudid) 0.5 mg Q4H PRN IV SEVERE PAIN LEVEL 7-10 Last administered on 05/24/17 01:17; Admin Dose 0.5 MG; Start 05/23/17 at 23:30 Influenza Virus Vaccine (Fluzone) 0.5 ml ONCE ONCE IM* ; Start 05/25/17 at 09:00 ; Stop 05/25/17 at 09:01 Hydromorphone HCl 1 mg 1 mg Q3H PRN IV PAIN Last administered on 05/24/17 12: 02; Admin Dose 1 MG; Start 05/24/17 at 04:15 Potassium Chloride/Dextrose/ Sod Cl (D5-1/2ns + KCl 20 Meq) 1,000 ml @ 125 mls/ hr Q8H IV Last administered on 05/24/17 12:01; Admin Dose 125 MLS/HR; Start 05/24/17 at 12:00 NINA CALDERON MD May 24, 2017 12:34
[2017-05-24 13:09] LABS: HAAIG REFLEX REFLEX FILED
--- NOTE | 2017-05-24 13:36 | CONS ---
Date/Time of Note Date/Time of Note DATE: 05/24/17 TIME: 13:29 Assessment/Plan Assessment/Plan Chief Complaint/Hosp Course Assessment: Acute severe pancreatitis Cholelithiasis Rule out choledocholithiasis Plan: IV fluids, analgesics, monitor calcium, a hemoglobin hematocrit, liver panel Stat MRCP . Problems: Consultation Date/Type/Reason Admit Date/Time May 23, 2017 at 23:23 Date of Consultation: May 24, 2017 Type of Consultation: GI Reason for Consultation Pancreatitis Hx of Present Illness 21-year-old male hospitalized with evidence of acute pancreatitis Lipase >[id number] , cholelithiasis and abnormal liver function test. Will schedule MRCP to determine need for ERCP. The patient denies alcohol abuse, there is no evidence of dyslipidemia, no common offender medications. At the present time the patient is still in significant amount of pain being controlled with medications. The patient is to remain n.p.o. and further recommendations will depend on findings. Constitutional: improved, no complaints Eyes: no complaints ENT: no complaints Respiratory: no complaints Cardiovascular: no complaints Gastrointestinal: other (See HPI) Genitourinary: no complaints Musculoskeletal: no complaints Skin: no complaints Neurologic: no complaints Endocrine: no complaints Lymphatic: no complaints Psychological: nl mood/affect, no complaints Immunologic: no complaints Past Medical History Medical History: no pertinent history Past Surgical History Past Surgical Hx: no surgical history Family History Significant Family History: no pertinent family hx Social History Alcohol Use: occasionally Smoking Status: Never smoker Drug Use: none Exam/Review of Systems Vital Signs Vitals Vital Signs Date Time Temp Pulse Resp B/P Pulse Ox O2 Delivery O2 Flow Rate FiO2 05/24/17 08:00 98.4 82 17 139/82 97 05/24/17 00:04 Room Air Intake and Output 05/23/17 05/23/17 05/24/17 15:00 23:00 07:00 Intake Total 500 ml Balance 500 ml Exam PHYSICAL EXAMINATION: GENERAL: Well developed, well nourished, alert & oriented x 3, in no acute distress SKIN: No lesions, no stigmata chronic liver disease, no evidence of bleeding diathesis LYMPHATIC: No palpable lymphadenopathy. HEAD: Normocephalic, atraumatic, no tenderness. EYES: Pupils equal reactive to light and accommodation, full extraocular movements, sclera clear, non-icteric, no discharge. EARS/NOSE AND THROAT: Ears normal, nose normal, oropharynx normal, oral membranes well hydrated without lesions. NECK: Supple, no masses, thyroid normal, JVP within normal limits, carotids normal without bruits. CHEST: Inspection within normal limits. CARDIOVASCULAR: Heart: Regular rate and rhythm, no murmurs, gallops or rubs. Peripheral pulses present within normal limits, no cyanosis, clubbing or edemas. No pulsatile abdominal mass RESPIRATORY: Lungs clear to auscultation and percussion, no wheezing, no rubs GASTROINTESTINAL AND LIVER: Abdomen: Soft, moderate epigastric tenderness, moderately distended, no hernias, no masses, no organomegaly, no ascites, no guarding, no rebound tenderness, normoactive bowel sounds. Rectal: Deferred. GENITOURINARY: [Male genitalia within normal limits.] EXTREMITIES: No cyanosis, clubbing or edema. Results Result Diagram: 05/24/17 0451 05/24/17 0451 Results 24 hrs Laboratory Tests Test 05/23/17 20:30 05/24/17 04:50 05/24/17 04:51 White Blood Count 21.2 #H 14.6 #H Red Blood Count 6.03 5.39 Hemoglobin 18.2 H 16.4 Hematocrit 52.5 H 46.9 Mean Corpuscular Volume 87.1 87.0 Mean Corpuscular Hemoglobin 30.2 30.4 Mean Corpuscular Hemoglobin Concent 34.7 35.0 Red Cell Distribution Width 12.1 12.3 Platelet Count 239 175 # Mean Platelet Volume 11.8 H 11.8 H Neutrophils % 84.7 H 88.2 H Lymphocytes % 8.7 L 3.8 L Monocytes % 5.8 7.5 Eosinophils % 0.0 0.0 Basophils % 0.2 0.1 Nucleated Red Blood Cells % 0.0 0.0 Neutrophils # 17.9 H 12.9 H Lymphocytes # 1.9 0.6 L Monocytes # 1.2 H 1.1 H Eosinophils # 0.0 0.0 Basophils # 0.0 0.0 Nucleated Red Blood Cells # 0.0 0.0 Prothrombin Time 13.3 Prothrombin Time Ratio 1.0 INR International Normalized Ratio 1.00 Activated Partial Thromboplast Time 23.5 L Sodium Level 144 141 Potassium Level 3.4 L 3.9 Chloride Level 103 108 Carbon Dioxide Level 27 23 Anion Gap 17 H 14 Blood Urea Nitrogen 9 9 Creatinine 0.86 0.77 Glucose Level 176 147 Calcium Level 10.0 8.6 Total Bilirubin 2.5 H 2.0 H Direct Bilirubin 0.70 #H 0.10 # Indirect Bilirubin 1.8 H 1.9 H Aspartate Amino Transf (AST/SGOT) 525 #H 194 #H Alanine Aminotransferase (ALT/SGPT) 518 H 364 H Alkaline Phosphatase 161 H 131 H Troponin I < 0.012 Total Protein 8.5 H 6.8 # Albumin 5.0 H 3.6 # Globulin 3.50 H 3.20 Albumin/Globulin Ratio 1.42 1.12 Lipase 06026 H Hepatitis B Surface Antigen Pending Hepatitis B Core Total Antibody Pending Hepatitis C Antibody Pending Hemoglobin A1c 5.1 Magnesium Level 1.8 Triglycerides Level 38 Cholesterol Level 104 LDL Cholesterol, Calculated 58 HDL Cholesterol 38 Cholesterol/HDL Ratio 2.7 Thyroid Stimulating Hormone (TSH) 0.766 Ethyl Alcohol Level < 10.0 Medications Medications Current Medications Sodium Chloride (NS) 1,000 ml @ 250 mls/hr Q4H IV Last administered on 09:09; Admin Dose 250 MLS/HR; Start 05/23/17 at 23:28 Ondansetron HCl (Zofran Inj) 4 mg Q6H PRN IV NAUSEA AND/OR VOMITING; Start 05/23/17 at 23:30 Metoclopramide HCl (Reglan) 10 mg Q6H PRN IV NAUSEA AND/OR VOMITING Last administered on 05/24/17 07:59; Admin Dose 10 MG; Start 05/23/17 at 23:30 Acetaminophen (Tylenol Tab) 650 mg Q6H PRN PO PAIN LEVEL 1-3 OR FEVER; Start 05/23/17 at 23:30 Hydromorphone HCl (Dilaudid) 0.5 mg Q4H PRN IV SEVERE PAIN LEVEL 7-10 Last administered on 05/24/17 01:17; Admin Dose 0.5 MG; Start 05/23/17 at 23:30 Influenza Virus Vaccine (Fluzone) 0.5 ml ONCE ONCE IM* ; Start 05/25/17 at 09:00 ; Stop 05/25/17 at 09:01 Hydromorphone HCl 1 mg 1 mg Q3H PRN IV PAIN Last administered on 05/24/17 12: 02; Admin Dose 1 MG; Start 05/24/17 at 04:15 Potassium Chloride/Dextrose/ Sod Cl (D5-1/2ns + KCl 20 Meq) 1,000 ml @ 125 mls/ hr Q8H IV Last administered on 05/24/17t 12:01; Admin Dose 125 MLS/HR; Start 05/24/17 at 12:00 KATHY MAGAÑA MD May 24, 2017 13:36
[2017-05-24 14:06] LABS: HEPATITIS B CORE ANTIBODY NEGATIVE (NEGATIVE)
--- NOTE | 2017-05-24 16:15 | RADRPT ---
PROCEDURE: MRI MRCP. CLINICAL INDICATION: Abdominal pain. Possible choledocholithiasis. TECHNIQUE: MRCP was performed without contrast. 3-D/multiplanar reformations and coronal rotating M IP images of the biliary tree were performed by the technologist and at an independent workstation. COMPARISON: CT and ultrasound dated 05/23/2017. FINDINGS: There is no intra or extrahepatic biliary ductal dilatation or filling defect within the biliary tree. The pancreatic duct is not visualized secondary to extensive pancreatic edema. There are multiple stones in the gallbladder which demonstrates nonspecific gallbladder wall thickening m easuring 5 mm. There is extensive pancreatic edema as well as peripancreatic inflammatory change with extensive flu id tracking into the upper abdomen and visualized retroperitoneum and mesentery, new when compared t he prior. IMPRESSION: 1. Severe acute pancreatitis with extensive peripancreatic inflammatory change and fluid tracking i nto the upper abdomen as well as inferiorly along the retroperitoneum and mesentery, new when compar ed with the recent CT scan performed the day prior. 2. Cholelithiasis with nonspecific gallbladder wall thickening. 3. No biliary ductal dilatation or evidence of choledocholithiasis, as questioned. These findings discussed with the charge nurse Kristen Packer at 1615 hours on 05/24/2017. RPTAT: HLBP .Betito Pabon MD, MD Date Time Electronically viewed and signed by .Betito Pabon MD, on 05/24/2017 16:15 .P/
[2017-05-24] MEDS ORDERED: PIPER-TAZO 3.375 GM IV (PMX) 50 ML IVPB SCH (18:00)
[2017-05-24] MEDS: ACETAMINOPHEN 325 MG TAB PO PRN (20:04)
[2017-05-24 20:59] LABS: ABNORMAL IP MESSAGE 1; BASOPHILS % 0.2 % (0.0-2.0); HEMATOCRIT 47.5 % (42.0-52.0); HEMOGLOBIN 16.1 g/dl (14.0-18.0); LYMPHOCYTES # 1.5 10^3/ul (0.8-2.9); LYMPHOCYTES % 8.4 % (18.0-55.0); MEAN CORPUSCULAR HEMOGLOBIN 30.1 pg (29.0-33.0); MEAN CORPUSCULAR HGB CONC 33.9 g/dl (32.0-37.0); MEAN CORPUSCULAR VOLUME 88.8 fl (72.0-104.0); MEAN PLATELET VOLUME 11.7 fl (7.4-10.4); MONOCYTES % 11.3 % (0.0-13.0); NEUTROPHIL # 14.2 10^3/ul (1.6-7.5); NEUTROPHILS % 79.8 % (30.0-74.0); PLATELET COUNT 156 10^3/UL (140-415); POSITIVE DIFF @See below; RED BLOOD COUNT 5.35 10^6/ul (4.70-6.10); RED CELL DISTRIBUTION WIDTH 12.8 % (11.5-14.5); WHITE BLOOD COUNT 17.8 10^3/ul (4.8-10.8)
[2017-05-24 21:20] LABS: ALBUMIN 3.3 g/dl (3.3-4.9); ALBUMIN/GLOBULIN RATIO 1.13; BILIRUBIN,INDIRECT 1.9 mg/dl (0-1.1); BILIRUBIN,TOTAL 1.9 mg/dl (0.2-1.3); CALCIUM 8.1 mg/dl (8.4-10.2); CREATININE 0.89 mg/dl (0.61-1.24); POTASSIUM 4.2 mmol/L (3.5-5.1); TOTAL PROTEIN 6.2 g/dl (6.1-8.1)
[2017-05-24] MEDS: DEXTROSE 5%-0.45% NACL 1,000 ML IV SCH (23:48)
[2017-05-25] VITALS (23 sets, daily range): BP systolic 108–140; BP diastolic 63–97; PULSE 100–131; RESP 15–31
[2017-05-25] MEDS ORDERED: PIPER-TAZO 3.375 GM IV (PMX) 50 ML IVPB SCH
[2017-05-25] MEDS: HYDROmorphONE 1 MG/ML SYG IV PRN ×5 (01:09→20:38)
[2017-05-25] MEDS: ACETAMINOPHEN 1000MG/100ML IV 100 ML IVPB PRN ×3 (01:46→23:47)
[2017-05-25] MEDS ORDERED: SOD CHLORIDE 0.9% 100 ML ONE (01:48)
[2017-05-25] MEDS ORDERED: IOHEXOL 300MG/ML 150 ML BTL ONE (01:48)
[2017-05-25] MEDS: DEXTROSE 5%-0.45% NACL 1,000 ML IV SCH ×6 (02:48→20:37)
--- NOTE | 2017-05-25 04:15 | RADRPT ---
PROCEDURE: CT Abdomen and pelvis with contrast. CLINICAL INDICATION: Abdominal pain. TECHNIQUE: CT scan of the abdomen and pelvis with contrast was performed on a multi-detector high -resolution CT scanner. The patient was scanned following the uncomplicated administration of 90 cc of Omnipaque 300 intravenous contrast. Coronal and sagittal reformatted images were obtained from the axial source images. Images were reviewed on a high-resolution PACS workstation. DICOM images ar e available. One or more of the following dose reduction techniques were used: - Automated exposure control. - Adjustment of the mA and/or kV according to patient size. - Use of iterative reconstruction technique. Exam CTD/vol = 8.92 mGy. Total exam DLP = 557.24 mGy-cm. COMPARISON: 05/23/2017. FINDINGS: Evaluation of the lung bases demonstrates bilateral small pleural effusion with underlying atelectas is. Abdomen: The liver is normal in size. There is no focal mass or dilatation of the biliary tree. T he gallbladder is not distended. The pancreas is diffusely edematous with extensive surrounding str anding and free fluid. There is low attenuation within the head and body and partial tail of the villaseñor creas compatible pancreatic necrosis. The spleen and bilateral adrenal glands are within normal limi ts. Bilateral kidneys are normal in size with symmetric enhancement. There is no focal mass, hydro nephrosis or hydroureter. There is no retroperitoneal adenopathy. The abdominal aorta is of normal caliber. There is no bowel obstruction or free air. A normal appendix is identified. There is no diverticul osis or diverticulitis. Pelvis: The bladder is unremarkable. There is moderate pelvic free fluid. The prostate and semina l vesicles are within normal limits. There is no significant pelvic adenopathy. Evaluation of the osseous structures demonstrates no suspicious lytic or blastic lesion. IMPRESSION: Severe acute pancreatitis with extensive surrounding inflammatory changes and free fluid, new compar ed with the prior CT. There is low attenuation within the head and body and partial tail of the panc reas compatible with pancreatic necrosis. Moderate abdominal and pelvic free fluid. Bilateral small pleural effusions with underlying atelectasis. A call report was made to the patient's quintana nurse (Brooke) at 04:14 a.m. .Cade Guaman MD, MD Date Time Electronically viewed and signed by .Cade Guaman MD, MD on 05/25/2017 04:15 .T/
[2017-05-25 04:57] LABS: ABNORMAL IP MESSAGE 1; BASOPHILS % 0.2 % (0.0-2.0); HEMATOCRIT 46.3 % (42.0-52.0); HEMOGLOBIN 15.5 g/dl (14.0-18.0); LYMPHOCYTES # 1.6 10^3/ul (0.8-2.9); LYMPHOCYTES % 8.8 % (18.0-55.0); MEAN CORPUSCULAR HGB CONC 33.5 g/dl (32.0-37.0); MEAN CORPUSCULAR VOLUME 89.6 fl (72.0-104.0); MEAN PLATELET VOLUME 12.1 fl (7.4-10.4); MONOCYTE # 2.1 10^3/ul (0.3-0.9); MONOCYTES % 11.5 % (0.0-13.0); NEUTROPHIL # 14.8 10^3/ul (1.6-7.5); NEUTROPHILS % 79.2 % (30.0-74.0); PLATELET COUNT 156 10^3/UL (140-415); POSITIVE DIFF @See below; RED BLOOD COUNT 5.17 10^6/ul (4.70-6.10); RED CELL DISTRIBUTION WIDTH 12.8 % (11.5-14.5); WHITE BLOOD COUNT 18.7 10^3/ul (4.8-10.8)
--- NOTE | 2017-05-25 05:21 | EN ---
Date/Time of Note Date/Time of Note DATE: 05/25/17 TIME: 05:20 Event Note Medicine Medicine Event Note Patient seen and examined at the bedside after RN reported a fever. Tachycardia , but otherwise stable. Tylenol given. Blood cultures x 2 ordered. Later during the night patient developed another fever. Acetaminophen IV ordered. Decision was made to order a STAT CT scan of the abd/pelvis, see below. Patient currently clinically stable at this time. HR is 96. However, the WBC continued to rise despite being on zosyn. With review of the literature from [employer], Meropenem 1G every 8 hrs was started for pancreatic necrosis, and zosyn was discontinued. CT scan showed: IMPRESSION: Severe acute pancreatitis with extensive surrounding inflammatory changes and free fluid, new compared with the prior CT. There is low attenuation within the head and body and partial tail of the pancreas compatible with pancreatic necrosis. Moderate abdominal and pelvic free fluid. Bilateral small pleural effusions with underlying atelectasis. RADHA KING May 25, 2017 05:21
[2017-05-25 05:30] LABS: ALBUMIN 2.9 g/dl (3.3-4.9); ALBUMIN/GLOBULIN RATIO 1.11; BILIRUBIN,INDIRECT 2.1 mg/dl (0-1.1); BILIRUBIN,TOTAL 2.1 mg/dl (0.2-1.3); CALCIUM 8.1 mg/dl (8.4-10.2); CREATININE 0.66 mg/dl (0.61-1.24); POTASSIUM 4.1 mmol/L (3.5-5.1); TOTAL PROTEIN 5.5 g/dl (6.1-8.1)
[2017-05-25] MEDS: METOCLOPRAMIDE 10 MG INJ IV PRN (05:43)
[2017-05-25] MEDS ORDERED: MEROPENEM 1 GM/50ML(PMX) 50 ML IVPB SCH (06:00)
[2017-05-25] MEDS: ONDANSETRON 4 MG INJ IV PRN (08:20)
--- NOTE | 2017-05-25 08:35 | PN ---
Date/Time of Note Date/Time of Note DATE: 05/25/17 TIME: 08:31 Assessment/Plan VTE Prophylaxis VTE Prophylaxis Intervention: anti-embolic stocking Lines/Catheters IV [facility]ter [facility] (from [facility]): Peripheral IV Urinary Cath still in place: No Assessment/Plan Problems: (1) Acute gallstone pancreatitis Status: Acute Comment: He has not had a decrease in hemoglobin or hematocrit; is not had drastic increase in white count; he has not had a change in serum creatinine; he has not had a significant drop in serum calcium. In addition to this his serum lot lipase levels have decreased by roughly 90%. His liver chemistries have improved. All that being said his imaging studies show distinct and significant inflammation on the pancreas. Gastroenterology has seen him as an consultation as well as general surgeon. He will need to be observed carefully. Fortunately without seeing a rapid rise in the Yoshi score were in somewhat of better position however this to be a slow process. Curiously his father informs me he went to the exact same thing several years ago (2) Abnormal LFTs Status: Acute Comment: Improving. Negative hepatitis serologies (3) Cholecystitis Status: Acute Comment: He will need a gallbladder resection at some point. The timing of this would be best done when the pancreas is settling down but we will see how the situation changes under careful observation Subjective 24 Hr Interval Summary Free Text/Dictation Patient reports he is still having pain and requires pain medication. No nausea or vomiting. Denies shortness of breath. Constitutional: no complaints (No fevers chills or sweats) Respiratory: no complaints (Shortness of breath) Cardiovascular: no complaints (No chest pain or palpitations) Gastrointestinal: nausea, pain Genitourinary: no complaints Musculoskeletal: no complaints Skin: no complaints Exam/Review of Systems Vital Signs Vitals Vital Signs Date Time Temp Pulse Resp B/P Pulse Ox O2 Delivery O2 Flow Rate FiO2 05/25/17 08:00 107 05/25/17 07:00 18 127/91 100 Room Air 05/25/17 04:00 99.0 Intake and Output 05/24/17 05/24/17 05/25/17 15:00 23:00 07:00 Intake Total 1250 ml 250 ml 900 ml Output Total 650 ml 1050 ml 600 ml Balance 600 ml -800 ml 300 ml Exam Complains of pain request pain medications Constitutional: alert, oriented Eyes: EOMI, nl conjunctiva, nl lids, nl sclera (No humphrey icterus) Respiratory: clear to auscultation, normal air movement Cardiovascular: nl pulses, regular rate and rhythm Gastrointestinal: bowel sounds, soft, tender (Tender especially in the upper epigastrium left and right upper quadrants) Results Result Diagram: 05/25/17 0415 05/25/17 0445 Results 24 hrs Laboratory Tests Test 05/24/17 20:54 05/25/17 04:15 05/25/17 04:45 White Blood Count 17.8 #H 18.7 H Red Blood Count 5.35 5.17 Hemoglobin 16.1 15.5 Hematocrit 47.5 46.3 Mean Corpuscular Volume 88.8 89.6 Mean Corpuscular Hemoglobin 30.1 30.0 Mean Corpuscular Hemoglobin Concent 33.9 33.5 Red Cell Distribution Width 12.8 12.8 Platelet Count 156 156 Mean Platelet Volume 11.7 H 12.1 H Neutrophils % 79.8 H 79.2 H Lymphocytes % 8.4 L 8.8 L Monocytes % 11.3 11.5 Eosinophils % 0.0 0.0 Basophils % 0.2 0.2 Nucleated Red Blood Cells % 0.0 0.0 Neutrophils # 14.2 H 14.8 H Lymphocytes # 1.5 1.6 Monocytes # 2.0 H 2.1 H Eosinophils # 0.0 0.0 Basophils # 0.0 0.0 Nucleated Red Blood Cells # 0.0 0.0 Sodium Level 140 136 Potassium Level 4.2 4.1 Chloride Level 108 106 Carbon Dioxide Level 25 24 Anion Gap 11 10 Blood Urea Nitrogen 11 10 Creatinine 0.89 0.66 Glucose Level 151 157 Calcium Level 8.1 L 8.1 L Total Bilirubin 1.9 H 2.1 H Direct Bilirubin 0.00 0.00 Indirect Bilirubin 1.9 H 2.1 H Aspartate Amino Transf (AST/SGOT) 87 #H 77 H Alanine Aminotransferase (ALT/SGPT) 217 H 165 H Alkaline Phosphatase 103 117 Total Protein 6.2 5.5 L Albumin 3.3 2.9 L Globulin 2.90 2.60 Albumin/Globulin Ratio 1.13 1.11 Lipase 3897 H Medications Medications Current Medications Ondansetron HCl (Zofran Inj) 4 mg Q6H PRN IV NAUSEA AND/OR VOMITING Last administered on 05/25/17 08:20; Admin Dose 4 MG; Start 05/23/17 at 23:30 Metoclopramide HCl (Reglan) 10 mg Q6H PRN IV NAUSEA AND/OR VOMITING Last administered on 05/25/17 05:43; Admin Dose 10 MG; Start 05/23/17 at 23:30 Acetaminophen (Tylenol Tab) 650 mg Q6H PRN PO PAIN LEVEL 1-3 OR FEVER Last administered on 05/24/17 20:04; Admin Dose 650 MG; Start 05/23/17 at 23:30 Hydromorphone HCl (Dilaudid) 0.5 mg Q4H PRN IV SEVERE PAIN LEVEL 7-10 Last administered on 05/24/17 01:17; Admin Dose 0.5 MG; Start 05/23/17 at 23:30 Influenza Virus Vaccine (Fluzone) 0.5 ml ONCE ONCE IM* ; Start 05/25/17 at 09:00 ; Stop 05/25/17 at 09:01 Hydromorphone HCl 1 mg 1 mg Q3H PRN IV PAIN Last administered on 05/25/17 05: 38; Admin Dose 1 MG; Start 05/24/17 at 04:15 Acetaminophen 100 ml @ 400 mls/hr Q6H PRN IVPB FEVER Last administered on 05/25 01:46; Admin Dose 400 MLS/HR; Start 05/24/17 at 21:00 Dextrose/Sodium Chloride 1,000 ml @ 325 mls/hr Q3H5M IV Last administered on 05/25/17 06:26; Admin Dose 325 MLS/HR; Start 05/24/17 at 23:30 Meropenem/Sodium Chloride (Merrem 1 Gm/50 ml (Pmx)) 50 ml @ 100 mls/hr Q8 IVPB ; Start 05/25/17 at 07:00 NINA CALDERON MD May 25, 2017 08:35
[2017-05-25] MEDS: MEROPENEM 1 GM/50ML(PMX) 50 ML IVPB SCH ×3 (08:41→21:36)
[2017-05-25] MEDS: HYDROmorphONE 0.5 MG/0.5 ML SYG IV PRN ×3 (08:45→23:27)
[2017-05-25] MEDS ORDERED: INFLUENZA VIRUS VACCINE 0.5 ML (DISPENSING) IM* ONE (09:00)
--- NOTE | 2017-05-25 12:19 | PN ---
Date/Time of Note Date/Time of Note DATE: 05/25/17 TIME: 12:11 Assessment/Plan Lines/Catheters IV [facility]ter Type (from [facility] Peripheral IV Lower[place] in Place (from [facility]): No Assessment/Plan Chief Complaint/Hosp Course 21 year old otherwise healthy male presents with acute onset of epigastric/ upper abdominal pain x 1 day. As per patient, he was in normal state of health until yesterday when he began to have sharp cramping 10/10 upper epigastric abdominal pain. no radiation. better with pain meds. not aggravated by anything. States had similar episode but more mild earlier this year and thought it was gastritis. Came to ED for evaluation and was noted to have leukocytosis, elevated LFT's and t bili, and elevated lipase. Ultrasound demonstrated large gallstone and sludge. Surgery called to evaluate for gallstone pancreatitis. Problems: (1) Acute gallstone pancreatitis Status: Acute Comment: Acute severe pancreatitis secondary to gallstones. Febrile, tachycardic, leukocytosis, LFT's/lipase improved. -Continue to monitor in ICU. clinically slowly improving but given radiological findings he warrants close monitoring. -NPO with IV fluids. -Abx -close urine output monitoring. should be making at least 30+cc/hr. titrate IV fluids as necessary. -trend labs -Will need medical management of acute severe pancreatitis. Once resolved and patient almost ready for discharge will discuss cholecystectomy prior to discharge with patient. -thank you. please feel free to call me at anytime with questions or concerns. [phone] Subjective 24 Hr Interval Summary patient seen and examined at bedside. transferred to ICU for closer monitoring. Pain progressed yesterday but much improved today. no nausea or emesis. febrile. no flatus or BM today but did have yesterday. currently NPO. UOP okay MRI and repeat CT reviewed. Pancreatic inflammation had progressed since initial scan. On exam this morning abdomen soft, non distended, tender in epigastric region but improved as compared to yesterday. states he feels better. Constitutional: improved Exam/Review of Systems Vital Signs Vitals Vital Signs Date Time Temp Pulse Resp B/P Pulse Ox O2 Delivery O2 Flow Rate FiO2 05/25/17 08:00 100.7 107 22 134/84 95 Room Air Intake and Output 05/24/17 05/24/17 05/25/17 15:00 23:00 07:00 Intake Total 1250 ml 250 ml 900 ml Output Total 650 ml 1050 ml 600 ml Balance 600 ml -800 ml 300 ml Results Result Diagram: 05/25/17 0415 05/25/17 0445 BEN PACHECO MD May 25, 2017 12:19
[2017-05-25 13:43] LABS: ABNORMAL IP MESSAGE 1; BASOPHILS % 0.2 % (0.0-2.0); HEMATOCRIT 43.6 % (42.0-52.0); HEMOGLOBIN 15.1 g/dl (14.0-18.0); LYMPHOCYTES # 1.2 10^3/ul (0.8-2.9); LYMPHOCYTES % 6.7 % (18.0-55.0); MEAN CORPUSCULAR HEMOGLOBIN 30.6 pg (29.0-33.0); MEAN CORPUSCULAR HGB CONC 34.6 g/dl (32.0-37.0); MEAN CORPUSCULAR VOLUME 88.4 fl (72.0-104.0); MEAN PLATELET VOLUME 11.3 fl (7.4-10.4); MONOCYTE # 1.7 10^3/ul (0.3-0.9); MONOCYTES % 9.6 % (0.0-13.0); NEUTROPHILS % 83.2 % (30.0-74.0); PLATELET COUNT 130 10^3/UL (140-415); POSITIVE DIFF @See below; RED BLOOD COUNT 4.93 10^6/ul (4.70-6.10); RED CELL DISTRIBUTION WIDTH 12.8 % (11.5-14.5); WHITE BLOOD COUNT 18.1 10^3/ul (4.8-10.8)
--- NOTE | 2017-05-25 14:05 | PN ---
Date/Time of Note Date/Time of Note DATE: 05/25/17 TIME: 14:01 Assessment/Plan VTE Prophylaxis VTE Prophylaxis Intervention: SCD's Lines/Catheters IV C[facility]ter Type (from [facility]): Peripheral IV Urinary Cath still in place: No Assessment/Plan Chief Complaint/Hosp Course Assessment: Acute severe pancreatitis Cholelithiasis No evidence of choledocholithiasis Plan: IV fluids, analgesics, monitor calcium, a hemoglobin hematocrit, liver panel Continue observation in ICU Subjective: Course reviewed with nursing staff Patient interviewed and examined All labs, imaging and other results reviewed The patient was transferred to ICU after findings of MRCP showed severe pancreatitis Clinical picture also significant for severe abdominal pain, nausea There is no evidence of choledocholithiasis, the possibility of stone passage appears likely He appears a bit more comfortable today although still having significant pain Laboratories consistent with severe pancreatitis but improving Exam: General: well developed, well nourished, alert and oriented x3 , in mild acute distress due to abdominal pain Skin: No lesions, no stigmata chronic liver disease, no evidence of bleeding diathesis Lymphatic: No palpable lymphadenopathy HEENT: No lesions Cardiovascular: Heart: Regular rate and rhythm, no murmurs, gallops or rubs. Peripheral pulses present within normal limits, no cyanosis, clubbing or edemas. No pulsatile abdominal mass Respiratory: Lungs clear to auscultation and percussion, no wheezing, no rubs Gastrointestinal and Liver: Abdomen: Soft, moderate diffuse tenderness, moderately distended, no hernias, no masses, no organomegaly, no ascites, positive guarding, no rebound tenderness, normoactive bowel sounds. Extremities: No cyanosis, clubbing, or edema. Diagnostic Studies: Available data and images were reviewed personally. See reports. Significant results and findings are addressed here or in the assessment and plan. . Problems: Exam/Review of Systems Vital Signs Vitals Vital Signs Date Time Temp Pulse Resp B/P Pulse Ox O2 Delivery O2 Flow Rate FiO2 05/25/17 12:00 125 05/25/17 08:00 100.7 22 134/84 95 Room Air Intake and Output 05/24/17 05/24/17 05/25/17 15:00 23:00 07:00 Intake Total 1250 ml 250 ml 900 ml Output Total 650 ml 1050 ml 600 ml Balance 600 ml -800 ml 300 ml Results Result Diagram: 05/25/17 1331 05/25/17 0445 Results 24 hrs Laboratory Tests Test 05/24/17 20:54 05/25/17 04:15 05/25/17 04:45 05/25/17 13:31 White Blood Count 17.8 #H 18.7 H 18.1 H Red Blood Count 5.35 5.17 4.93 Hemoglobin 16.1 15.5 15.1 Hematocrit 47.5 46.3 43.6 Mean Corpuscular Volume 88.8 89.6 88.4 Mean Corpuscular Hemoglobin 30.1 30.0 30.6 Mean Corpuscular Hemoglobin Concent 33.9 33.5 34.6 Red Cell Distribution Width 12.8 12.8 12.8 Platelet Count 156 156 130 L Mean Platelet Volume 11.7 H 12.1 H 11.3 H Neutrophils % 79.8 H 79.2 H 83.2 H Lymphocytes % 8.4 L 8.8 L 6.7 L Monocytes % 11.3 11.5 9.6 Eosinophils % 0.0 0.0 0.0 Basophils % 0.2 0.2 0.2 Nucleated Red Blood Cells % 0.0 0.0 0.0 Neutrophils # 14.2 H 14.8 H 15.0 H Lymphocytes # 1.5 1.6 1.2 Monocytes # 2.0 H 2.1 H 1.7 H Eosinophils # 0.0 0.0 0.0 Basophils # 0.0 0.0 0.0 Nucleated Red Blood Cells # 0.0 0.0 0.0 Sodium Level 140 136 Potassium Level 4.2 4.1 Chloride Level 108 106 Carbon Dioxide Level 25 24 Anion Gap 11 10 Blood Urea Nitrogen 11 10 Creatinine 0.89 0.66 Glucose Level 151 157 Calcium Level 8.1 L 8.1 L Total Bilirubin 1.9 H 2.1 H Direct Bilirubin 0.00 0.00 Indirect Bilirubin 1.9 H 2.1 H Aspartate Amino Transf (AST/SGOT) 87 #H 77 H Alanine Aminotransferase (ALT/SGPT) 217 H 165 H Alkaline Phosphatase 103 117 Total Protein 6.2 5.5 L Albumin 3.3 2.9 L Globulin 2.90 2.60 Albumin/Globulin Ratio 1.13 1.11 Lipase 3897 H Medications Medications Current Medications Ondansetron HCl (Zofran Inj) 4 mg Q6H PRN IV NAUSEA AND/OR VOMITING Last administered on 05/25/17 08:20; Admin Dose 4 MG; Start 05/23/17 at 23:30 Metoclopramide HCl (Reglan) 10 mg Q6H PRN IV NAUSEA AND/OR VOMITING Last administered on 05/25/17 05:43; Admin Dose 10 MG; Start 05/23/17 at 23:30 Acetaminophen (Tylenol Tab) 650 mg Q6H PRN PO PAIN LEVEL 1-3 OR FEVER Last administered on 05/24/17 20:04; Admin Dose 650 MG; Start 05/23/17 at 23:30 Hydromorphone HCl (Dilaudid) 0.5 mg Q4H PRN IV SEVERE PAIN LEVEL 7-10 Last administered on 05/25/17 08:45; Admin Dose 0.5 MG; Start 05/23/17 at 23:30 Hydromorphone HCl 1 mg 1 mg Q3H PRN IV PAIN Last administered on 05/25/17 11: 42; Admin Dose 1 MG; Start 05/24/17 at 04:15 Acetaminophen 100 ml @ 400 mls/hr Q6H PRN IVPB FEVER Last administered on 05/25 01:46; Admin Dose 400 MLS/HR; Start 05/24/17 at 21:00 Dextrose/Sodium Chloride 1,000 ml @ 200 mls/hr Q5H IV Last administered on 10:19; Admin Dose 200 MLS/HR; Start 05/24/17 at 23:30 Meropenem/Sodium Chloride (Merrem 1 Gm/50 ml (Pmx)) 50 ml @ 100 mls/hr Q8 IVPB Last administered on 05/25/17 08:41; Admin Dose 100 MLS/HR; Start 05/25/17 at 07:00 Pantoprazole (Protonix Iv) 40 mg BID IV ; Start 05/25/17 at 14:00; Status KATHY MARSHALL MD May 25, 2017 14:05
[2017-05-25 14:07] LABS: ALBUMIN 2.8 g/dl (3.3-4.9); ALBUMIN/GLOBULIN RATIO 0.9; BILIRUBIN,INDIRECT 1.6 mg/dl (0-1.1); BILIRUBIN,TOTAL 1.6 mg/dl (0.2-1.3); CALCIUM 8.1 mg/dl (8.4-10.2); CREATININE 0.66 mg/dl (0.61-1.24); POTASSIUM 3.8 mmol/L (3.5-5.1); TOTAL PROTEIN 5.9 g/dl (6.1-8.1)
[2017-05-25] MEDS: PANTOPRAZOLE 40 MG INJ IV SCH ×2 (14:29→20:37)
[2017-05-25] MEDS: METOCLOPRAMIDE 10 MG INJ IV SCH ×2 (17:26→23:27)
[2017-05-25 20:30] LABS: ABNORMAL IP MESSAGE 1; BASOPHILS % 0.2 % (0.0-2.0); EOSINOPHILS % 0.1 % (0.0-7.0); HEMATOCRIT 43.4 % (42.0-52.0); HEMOGLOBIN 14.7 g/dl (14.0-18.0); LYMPHOCYTES # 1.6 10^3/ul (0.8-2.9); LYMPHOCYTES % 9.4 % (18.0-55.0); MEAN CORPUSCULAR HEMOGLOBIN 29.9 pg (29.0-33.0); MEAN CORPUSCULAR HGB CONC 33.9 g/dl (32.0-37.0); MEAN CORPUSCULAR VOLUME 88.2 fl (72.0-104.0); MEAN PLATELET VOLUME 11.1 fl (7.4-10.4); MONOCYTE # 1.8 10^3/ul (0.3-0.9); MONOCYTES % 10.2 % (0.0-13.0); NEUTROPHIL # 13.7 10^3/ul (1.6-7.5); NEUTROPHILS % 79.7 % (30.0-74.0); PLATELET COUNT 140 10^3/UL (140-415); POSITIVE DIFF @See below; RED BLOOD COUNT 4.92 10^6/ul (4.70-6.10); RED CELL DISTRIBUTION WIDTH 12.4 % (11.5-14.5); WHITE BLOOD COUNT 17.2 10^3/ul (4.8-10.8)
[2017-05-25 20:52] LABS: ALBUMIN 2.8 g/dl (3.3-4.9); BILIRUBIN,INDIRECT 1.2 mg/dl (0-1.1); BILIRUBIN,TOTAL 1.2 mg/dl (0.2-1.3); CALCIUM 7.8 mg/dl (8.4-10.2); CREATININE 0.74 mg/dl (0.61-1.24); TOTAL PROTEIN 5.6 g/dl (6.1-8.1)
[2017-05-26] VITALS (27 sets, daily range): BP systolic 113–149; BP diastolic 66–97; PULSE 113–141; RESP 14–32
[2017-05-26] MEDS: DEXTROSE 5%-0.45% NACL 1,000 ML IV SCH ×5 (01:37→22:58)
[2017-05-26] MEDS: HYDROmorphONE 1 MG/ML SYG IV PRN ×6 (02:08→21:20)
[2017-05-26] MEDS: METOCLOPRAMIDE 10 MG INJ IV SCH ×4 (05:16→23:56)
[2017-05-26] MEDS: MEROPENEM 1 GM/50ML(PMX) 50 ML IVPB SCH ×3 (05:16→22:00)
[2017-05-26 06:14] LABS: ABNORMAL IP MESSAGE 1; BASOPHILS % 0.2 % (0.0-2.0); EOSINOPHILS % 0.1 % (0.0-7.0); HEMATOCRIT 41.5 % (42.0-52.0); HEMOGLOBIN 14.6 g/dl (14.0-18.0); LYMPHOCYTES # 1.1 10^3/ul (0.8-2.9); LYMPHOCYTES % 7.1 % (18.0-55.0); MEAN CORPUSCULAR HEMOGLOBIN 30.7 pg (29.0-33.0); MEAN CORPUSCULAR HGB CONC 35.2 g/dl (32.0-37.0); MEAN CORPUSCULAR VOLUME 87.4 fl (72.0-104.0); MEAN PLATELET VOLUME 11.5 fl (7.4-10.4); MONOCYTE # 1.6 10^3/ul (0.3-0.9); MONOCYTES % 11.1 % (0.0-13.0); PLATELET COUNT 123 10^3/UL (140-415); POSITIVE DIFF @See below; RED BLOOD COUNT 4.75 10^6/ul (4.70-6.10); RED CELL DISTRIBUTION WIDTH 12.5 % (11.5-14.5); WHITE BLOOD COUNT 14.8 10^3/ul (4.8-10.8)
[2017-05-26 06:36] LABS: AMYLASE 504 U/L (11-123)
[2017-05-26 06:39] LABS: ALBUMIN 2.7 g/dl (3.3-4.9); ALBUMIN/GLOBULIN RATIO 0.87; BILIRUBIN,INDIRECT 1.4 mg/dl (0-1.1); BILIRUBIN,TOTAL 1.4 mg/dl (0.2-1.3); CALCIUM 8.1 mg/dl (8.4-10.2); CREATININE 0.69 mg/dl (0.61-1.24); POTASSIUM 3.6 mmol/L (3.5-5.1); TOTAL PROTEIN 5.8 g/dl (6.1-8.1)
[2017-05-26] MEDS: PANTOPRAZOLE 40 MG INJ IV SCH ×2 (08:09→20:17)
[2017-05-26] MEDS: HYDROmorphONE 0.5 MG/0.5 ML SYG IV PRN ×4 (10:33→23:53)
[2017-05-26] MEDS: ACETAMINOPHEN 1000MG/100ML IV 100 ML IVPB PRN ×2 (11:12→20:10)
--- NOTE | 2017-05-26 11:45 | PN ---
Date/Time of Note Date/Time of Note DATE: 05/26/17 TIME: 11:35 Assessment/Plan VTE Prophylaxis VTE Prophylaxis Intervention: SCD's Lines/Catheters IV C[facility]ter Type (from [facility]): Peripheral IV Urinary Cath still in place: No Assessment/Plan Chief Complaint/Hosp Course Chief Complaint/Hosp Course Assessment: Acute severe pancreatitis Cholelithiasis No evidence of choledocholithiasis Plan: Continue IV fluids, analgesics, Monitor calcium, Monitor hemoglobin hematocrit and liver panel Pain management Continue observation in ICU Hep B and C negative Pt seen in collaboration with Dr. Schultz Subjective: Course reviewed with nursing staff Patient interviewed and examined All labs, imaging and other results reviewed The patient with severe pancreatitis, pain continues to improve, as well as blood work-up, However patient noted to be febrile this am, blood cx obtained 05/24- no growth noted. Pt on abx at this time Leukocytosis is improving Laboratories consistent with severe pancreatitis but improving Exam: General: well developed, well nourished, alert and oriented x3 , Skin: No lesions, no stigmata chronic liver disease, no evidence of bleeding diathesis Lymphatic: No palpable lymphadenopathy HEENT: No lesions Cardiovascular: Heart: Tachycardia Respiratory: Lungs clear to auscultation and percussion, Gastrointestinal and Liver: Abdomen: Soft, moderate diffuse tenderness, moderately distended, no hernias, no masses, no organomegaly, no ascites, positive guarding, no rebound tenderness, normoactive bowel sounds. Extremities: No cyanosis, clubbing, or edema. Diagnostic Studies: Available data and images were reviewed personally. See reports. Significant results and findings are addressed here or in the assessment and plan. Problems: Exam/Review of Systems Vital Signs Vitals Vital Signs Date Time Temp Pulse Resp B/P Pulse Ox O2 Delivery O2 Flow Rate FiO2 05/26/17 10:00 137 28 128/80 94 Room Air 05/26/17 08:00 102.0 Intake and Output 05/25/17 05/25/17 05/26/17 15:00 23:00 07:00 Intake Total 1625 ml 1800 ml 1550 ml Output Total 400 ml 350 ml 1000 ml Balance 1225 ml 1450 ml 550 ml Results Result Diagram: 05/26/17 0544 05/26/17 0544 Results 24 hrs Laboratory Tests Test 05/25/17 13:31 05/25/17 20:05/26/17 05:44 White Blood Count 18.1 H 17.2 H 14.8 H Red Blood Count 4.93 4.92 4.75 Hemoglobin 15.1 14.7 14.6 Hematocrit 43.6 43.4 41.5 L Mean Corpuscular Volume 88.4 88.2 87.4 Mean Corpuscular Hemoglobin 30.6 29.9 30.7 Mean Corpuscular Hemoglobin Concent 34.6 33.9 35.2 Red Cell Distribution Width 12.8 12.4 12.5 Platelet Count 130 L 140 123 L Mean Platelet Volume 11.3 H 11.1 H 11.5 H Neutrophils % 83.2 H 79.7 H 81.0 H Lymphocytes % 6.7 L 9.4 L 7.1 L Monocytes % 9.6 10.2 11.1 Eosinophils % 0.0 0.1 0.1 Basophils % 0.2 0.2 0.2 Nucleated Red Blood Cells % 0.0 0.0 0.0 Neutrophils # 15.0 H 13.7 H 12.0 H Lymphocytes # 1.2 1.6 1.1 Monocytes # 1.7 H 1.8 H 1.6 H Eosinophils # 0.0 0.0 0.0 Basophils # 0.0 0.0 0.0 Nucleated Red Blood Cells # 0.0 0.0 0.0 Sodium Level 134 L 132 L 133 L Potassium Level 3.8 4.0 3.6 Chloride Level 102 100 99 Carbon Dioxide Level 27 28 30 Anion Gap 9 8 8 Blood Urea Nitrogen 8 7 7 Creatinine 0.66 0.74 0.69 Glucose Level 154 141 142 Calcium Level 8.1 L 7.8 L 8.1 L Total Bilirubin 1.6 H 1.2 1.4 H Direct Bilirubin 0.00 0.00 0.00 Indirect Bilirubin 1.6 H 1.2 H 1.4 H Aspartate Amino Transf (AST/SGOT) 55 H 49 H 44 Alanine Aminotransferase (ALT/SGPT) 149 H 122 H 110 H Alkaline Phosphatase 82 76 75 Total Protein 5.9 L 5.6 L 5.8 L Albumin 2.8 L 2.8 L 2.7 L Globulin 3.10 2.80 3.10 Albumin/Globulin Ratio 0.90 1.00 0.87 Amylase Level 504 H Lipase 1905 H Medications Medications Current Medications Ondansetron HCl (Zofran Inj) 4 mg Q6H PRN IV NAUSEA AND/OR VOMITING Last administered on 05/25/17 08:20; Admin Dose 4 MG; Start 05/23/17 at 23:30 Acetaminophen (Tylenol Tab) 650 mg Q6H PRN PO PAIN LEVEL 1-3 OR FEVER Last administered on 05/24/17 20:04; Admin Dose 650 MG; Start 05/23/17 at 23:30 Hydromorphone HCl (Dilaudid) 0.5 mg Q4H PRN IV SEVERE PAIN LEVEL 7-10 Last administered on 05/26/17 10:33; Admin Dose 0.5 MG; Start 05/23/17 at 23:30 Hydromorphone HCl 1 mg 1 mg Q3H PRN IV PAIN Last administered on 05/26/17 08: 18; Admin Dose 1 MG; Start 05/24/17 at 04:15 Acetaminophen 100 ml @ 400 mls/hr Q6H PRN IVPB FEVER Last administered on 05/26 11:12; Admin Dose 400 MLS/HR; Start 05/24/17 at 21:00 Dextrose/Sodium Chloride 1,000 ml @ 200 mls/hr Q5H IV Last administered on 07:01; Admin Dose 200 MLS/HR; Start 05/24/17 at 23:30 Meropenem/Sodium Chloride (Merrem 1 Gm/50 ml (Pmx)) 50 ml @ 100 mls/hr Q8 IVPB Last administered on 05/26/17 05:16; Admin Dose 100 MLS/HR; Start 05/25/17 at 07:00 Pantoprazole (Protonix Iv) 40 mg BID IV Last administered on 05/26/17 08:09; Admin Dose 40 MG; Start 05/25/17 at 14:00 Metoclopramide HCl (Reglan) 10 mg Q6H IV Last administered on 05/26/17 05:16; Admin Dose 10 MG; Start 05/25/17 at 17:30 NUPUR SHEFFIELD May 26, 2017 11:45
--- NOTE | 2017-05-26 14:47 | PN ---
Date/Time of Note Date/Time of Note DATE: 05/26/17 TIME: 14:33 Assessment/Plan Lines/Catheters IV Catheter Type (from [facility]): Peripheral IV [place] in Place (from [facility]): No Assessment/Plan Chief Complaint/Hosp Course 21 year old otherwise healthy male presents with acute onset of epigastric/ upper abdominal pain x 1 day prior to admission. As per patient, he was in normal state of health until yesterday when he began to have sharp cramping 10/ 10 upper epigastric abdominal pain. no radiation. better with pain meds. not aggravated by anything. States had similar episode but more mild earlier this year and thought it was gastritis. Came to ED for evaluation and was noted to have leukocytosis, elevated LFT's and t bili, and elevated lipase. Ultrasound demonstrated large gallstone and sludge. Surgery called to evaluate for gallstone pancreatitis. CT and MRI performed and confirmed worsening acute severe pancreatitis. Patient transferred to ICU for closer monitoring and management. Problems: (1) Acute gallstone pancreatitis Status: Acute Assessment/Plan Acute severe pancreatitis secondary to gallstones. Febrile, tachy, HD stable, UOP low, leukocytosis improved, lipase improve, calcium stable. -continue with medical management of acute severe pancreatitis. -NPO -IV fluids; titrate for urine output as necessary -appreciate GI input -fortunately it does not look like he will need emergent surgery as he is slowly improving but with how his clinical course is going will likely be days to week+ before he will be ready for cholecystectomy. -please feel free to call me at anytime with questions or concerns. thank you [phone] Subjective 24 Hr Interval Summary patient seen and examined at bedside. no acute events. continues to be febrile and tachycardic but HD stable. states pain improved today as compared to yesterday but still present. no n/v. no appetite. Exam/Review of Systems Vital Signs Vitals Vital Signs Date Time Temp Pulse Resp B/P Pulse Ox O2 Delivery O2 Flow Rate FiO2 05/26/17 13:00 129 24 133/82 92 Room Air 05/26/17 12:00 100.5 Intake and Output 05/25/17 05/25/17 05/26/17 15:00 23:00 07:00 Intake Total 1625 ml 1800 ml 1550 ml Output Total 400 ml 350 ml 1000 ml Balance 1225 ml 1450 ml 550 ml Exam Constitutional: alert, oriented Psych: no complaints Head: atraumatic, normocephalic Eyes: EOMI, nl conjunctiva ENMT: nl external ears & nose Neck: non-tender Respiratory: normal air movement Cardiovascular: nl pulses, other (tachy) Gastrointestinal: nl liver, spleen, soft, tender Extremities: normal pulses Neurological: PRESS ASSISTANT II-XII intact Skin: nl turgor Results Result Diagram: 05/26/17 0544 05/26/17 0544 BEN PACHECO MD May 26, 2017 14:47
--- NOTE | 2017-05-26 15:18 | PN ---
Date/Time of Note Date/Time of Note DATE: 05/26/17 TIME: 15:11 Assessment/Plan VTE Prophylaxis VTE Prophylaxis Intervention: SCD's Lines/Catheters IV Catheter Type (from [facility]): Peripheral IV Urinary Cath still in place: No Assessment/Plan Chief Complaint/Hosp Course 1. SIRS secondary to gallstone pancreatitis Continue n.p.o. status, IV fluids Surgical plan is for cholecystectomy within a week once sirs and pancreatitis has resolved Continue ICU monitoring Continue meropenem GI following 2. Elevated LFTs No evidence of choledocholithiasis Hepatitis viral panel negative Monitor Prophylaxis: SCDs Problems: Subjective 24 Hr Interval Summary Gastrointestinal: pain Exam/Review of Systems Vital Signs Vitals Vital Signs Date Time Temp Pulse Resp B/P Pulse Ox O2 Delivery O2 Flow Rate FiO2 05/26/17 13:00 129 24 133/82 92 Room Air 05/26/17 12:00 100.5 Intake and Output 05/25/17 05/25/17 05/26/17 15:00 23:00 07:00 Intake Total 1625 ml 1800 ml 1550 ml Output Total 400 ml 350 ml 1000 ml Balance 1225 ml 1450 ml 550 ml Exam Constitutional: alert, oriented Respiratory: clear to auscultation Cardiovascular: regular rate and rhythm Gastrointestinal: soft, No distended Musculoskeletal: nl extremities to inspection Results Result Diagram: 05/26/17 0544 05/26/17 0544 Results 24 hrs Laboratory Tests Test 05/25/17 20:24 05/26/17 05:44 05/26/17 10:45 White Blood Count 17.2 H 14.8 H Red Blood Count 4.92 4.75 Hemoglobin 14.7 14.6 Hematocrit 43.4 41.5 L Mean Corpuscular Volume 88.2 87.4 Mean Corpuscular Hemoglobin 29.9 30.7 Mean Corpuscular Hemoglobin Concent 33.9 35.2 Red Cell Distribution Width 12.4 12.5 Platelet Count 140 123 L Mean Platelet Volume 11.1 H 11.5 H Neutrophils % 79.7 H 81.0 H Lymphocytes % 9.4 L 7.1 L Monocytes % 10.2 11.1 Eosinophils % 0.1 0.1 Basophils % 0.2 0.2 Nucleated Red Blood Cells % 0.0 0.0 Neutrophils # 13.7 H 12.0 H Lymphocytes # 1.6 1.1 Monocytes # 1.8 H 1.6 H Eosinophils # 0.0 0.0 Basophils # 0.0 0.0 Nucleated Red Blood Cells # 0.0 0.0 Sodium Level 132 L 133 L Potassium Level 4.0 3.6 Chloride Level 100 99 Carbon Dioxide Level 28 30 Anion Gap 8 8 Blood Urea Nitrogen 7 7 Creatinine 0.74 0.69 Glucose Level 141 142 Calcium Level 7.8 L 8.1 L Total Bilirubin 1.2 1.4 H Direct Bilirubin 0.00 0.00 Indirect Bilirubin 1.2 H 1.4 H Aspartate Amino Transf (AST/SGOT) 49 H 44 Alanine Aminotransferase (ALT/SGPT) 122 H 110 H Alkaline Phosphatase 76 75 Total Protein 5.6 L 5.8 L Albumin 2.8 L 2.7 L Globulin 2.80 3.10 Albumin/Globulin Ratio 1.00 0.87 Amylase Level 504 H Lipase 1905 H Lactic Acid Level 2.1 H Medications Medications Current Medications Ondansetron HCl (Zofran Inj) 4 mg Q6H PRN IV NAUSEA AND/OR VOMITING Last administered on 05/25/17 08:20; Admin Dose 4 MG; Start 05/23/17 at 23:30 Acetaminophen (Tylenol Tab) 650 mg Q6H PRN PO PAIN LEVEL 1-3 OR FEVER Last administered on 05/24/17 20:04; Admin Dose 650 MG; Start 05/23/17 at 23:30 Hydromorphone HCl (Dilaudid) 0.5 mg Q4H PRN IV SEVERE PAIN LEVEL 7-10 Last administered on 05/26/17 14:48; Admin Dose 0.5 MG; Start 05/23/17 at 23:30 Hydromorphone HCl 1 mg 1 mg Q3H PRN IV PAIN Last administered on 05/26/17 12: 11; Admin Dose 1 MG; Start 05/24/17 at 04:15 Acetaminophen 100 ml @ 400 mls/hr Q6H PRN IVPB FEVER Last administered on 05/26 11:12; Admin Dose 400 MLS/HR; Start 05/24/17 at 21:00 Dextrose/Sodium Chloride 1,000 ml @ 200 mls/hr Q5H IV Last administered on 12:13; Admin Dose 200 MLS/HR; Start 05/24/17 at 23:30 Meropenem/Sodium Chloride (Merrem 1 Gm/50 ml (Pmx)) 50 ml @ 100 mls/hr Q8 IVPB Last administered on 05/26/17 14:47; Admin Dose 100 MLS/HR; Start 05/25/17 at 07:00 Pantoprazole (Protonix Iv) 40 mg BID IV Last administered on 05/26/17 08:09; Admin Dose 40 MG; Start 05/25/17 at 14:00 Metoclopramide HCl (Reglan) 10 mg Q6H IV Last administered on 05/26/17 12:11; Admin Dose 10 MG; Start 05/25/17 at 17:30 LARA GRAVES May 26, 2017 15:18
[2017-05-26] MEDS: ONDANSETRON 4 MG INJ IV PRN (20:54)
[2017-05-27] VITALS (21 sets, daily range): BP systolic 116–147; BP diastolic 57–93; PULSE 116–146; RESP 16–50
[2017-05-27] MEDS: HYDROmorphONE 1 MG/ML SYG IV PRN ×8 (01:23→21:58)
[2017-05-27] MEDS: ACETAMINOPHEN 1000MG/100ML IV 100 ML IVPB PRN ×2 (02:17→11:49)
[2017-05-27] MEDS: DEXTROSE 5%-0.45% NACL 1,000 ML IV SCH ×5 (03:03→23:53)
[2017-05-27] MEDS: HYDROmorphONE 0.5 MG/0.5 ML SYG IV PRN (04:06)
[2017-05-27] MEDS: METOCLOPRAMIDE 10 MG INJ IV SCH ×4 (05:56→23:53)
[2017-05-27] MEDS: MEROPENEM 1 GM/50ML(PMX) 50 ML IVPB SCH ×3 (05:56→21:18)
[2017-05-27 06:55] LABS: ABNORMAL IP MESSAGE 1; BASOPHILS % 0.2 % (0.0-2.0); EOSINOPHILS % 0.2 % (0.0-7.0); HEMATOCRIT 38.6 % (42.0-52.0); HEMOGLOBIN 13.7 g/dl (14.0-18.0); LYMPHOCYTES # 1.4 10^3/ul (0.8-2.9); LYMPHOCYTES % 9.1 % (18.0-55.0); MEAN CORPUSCULAR HEMOGLOBIN 30.9 pg (29.0-33.0); MEAN CORPUSCULAR HGB CONC 35.5 g/dl (32.0-37.0); MEAN CORPUSCULAR VOLUME 86.9 fl (72.0-104.0); MEAN PLATELET VOLUME 11.4 fl (7.4-10.4); MONOCYTE # 2.2 10^3/ul (0.3-0.9); MONOCYTES % 14.7 % (0.0-13.0); NEUTROPHIL # 11.2 10^3/ul (1.6-7.5); NEUTROPHILS % 75.3 % (30.0-74.0); PLATELET COUNT 147 10^3/UL (140-415); POSITIVE DIFF @See below; RED BLOOD COUNT 4.44 10^6/ul (4.70-6.10); RED CELL DISTRIBUTION WIDTH 12.6 % (11.5-14.5); WHITE BLOOD COUNT 14.9 10^3/ul (4.8-10.8)
[2017-05-27 07:22] LABS: ALBUMIN 2.3 g/dl (3.3-4.9); ALBUMIN/GLOBULIN RATIO 0.95; CALCIUM 7.5 mg/dl (8.4-10.2); CREATININE 0.65 mg/dl (0.61-1.24); POTASSIUM 3.4 mmol/L (3.5-5.1); TOTAL PROTEIN 4.7 g/dl (6.1-8.1)
[2017-05-27] MEDS: PANTOPRAZOLE 40 MG INJ IV SCH ×2 (08:11→21:18)
[2017-05-27] MEDS ORDERED: POTASSIUM CHLORIDE 250 ML IVPB ONE (09:30)
[2017-05-27 09:42] LABS: ANISOCYTOSIS 1+ (0-0); EOSINOPHILS % (M) 1 % (0-7); MICROCYTOSIS 1+ (0-0); MONOCYTES % (M) 8 % (0-13); PLASMA CELLS #M 0.2 10^3/ul (0.0-0.0); PLASMAC%(M) 2 % (0); PLATELET ESTIMATE NORMAL; POLYCHROMASIA 1+ (0-0)
--- NOTE | 2017-05-27 11:49 | PN ---
Date/Time of Note Date/Time of Note DATE: 05/27/17 TIME: 11:48 Assessment/Plan VTE Prophylaxis VTE Prophylaxis Intervention: SCD's Lines/Catheters IV C[facility] Type (from [facility]): Peripheral IV Urinary Cath still in place: No Assessment/Plan Chief Complaint/Hosp Course 1. SIRS secondary to gallstone pancreatitis Continue n.p.o. status, IV fluids Surgical plan is for cholecystectomy within a week once sirs and pancreatitis has resolved Continue ICU monitoring Continue meropenem GI following 2. Elevated LFTs No evidence of choledocholithiasis Hepatitis viral panel negative Monitor Prophylaxis: SCDs Problems: Subjective 24 Hr Interval Summary Gastrointestinal: pain Exam/Review of Systems Vital Signs Vitals Vital Signs Date Time Temp Pulse Resp B/P Pulse Ox O2 Delivery O2 Flow Rate FiO2 05/27/17 11:31 101.5 05/27/17 09:00 141 36 125/78 90 Nasal Cannula 3.0 Intake and Output 05/26/17 05/26/17 05/27/17 14:59 22:59 06:59 Intake Total 1700 ml 1800 ml 1750 ml Output Total 250 ml 1400 ml 900 ml Balance 1450 ml 400 ml 850 ml Exam Constitutional: alert, oriented Respiratory: clear to auscultation Cardiovascular: regular rate and rhythm Gastrointestinal: soft, tender, No distended Musculoskeletal: nl extremities to inspection Results Result Diagram: 05/27/1718 05/27/1718 Results 24 hrs Laboratory Tests Test 05/26/17 18:00 05/27/17 00:36 05/27/17 06:18 Lactic Acid Level 1.4 1.6 1.3 White Blood Count 14.9 H Red Blood Count 4.44 L Hemoglobin 13.7 L Hematocrit 38.6 L Mean Corpuscular Volume 86.9 Mean Corpuscular Hemoglobin 30.9 Mean Corpuscular Hemoglobin Concent 35.5 Red Cell Distribution Width 12.6 Platelet Count 147 Mean Platelet Volume 11.4 H Neutrophils % 75.3 H Segmented Neutrophils % (Manual) 44 Band Neutrophils % (Manual) 37 H Lymphocytes % 9.1 L Lymphocytes % (Manual) 8 L Monocytes % 14.7 H Monocytes % (Manual) 8 Eosinophils % 0.2 Eosinophils % (Manual) 1 Basophils % 0.2 Plasma Cells % (manual) 2 Nucleated Red Blood Cells % 0.0 Neutrophils # 11.2 H Neutrophils # (Manual) 7.4 Band Neutrophils # 5.5 H Absolute Lymphocytes (Manual) 1.1 Lymphocytes # 1.4 Monocytes # 2.2 H Absolute Monocytes (Manual) 1.1 H Eosinophils # 0.0 Basophils # 0.0 Plasma Cells # (manual) 0.2 H Nucleated Red Blood Cells # 0.0 Platelet Estimate NORMAL Polychromasia 1+ Anisocytosis 1+ Microcytosis 1+ Sodium Level 134 L Potassium Level 3.4 L Chloride Level 99 Carbon Dioxide Level 30 Anion Gap 8 Blood Urea Nitrogen 4 L Creatinine 0.65 Glucose Level 137 Calcium Level 7.5 L Total Bilirubin 1.0 Direct Bilirubin 0.00 Indirect Bilirubin 1.0 Aspartate Amino Transf (AST/SGOT) 30 Alanine Aminotransferase (ALT/SGPT) 72 H Alkaline Phosphatase 70 Total Protein 4.7 #L Albumin 2.3 L Globulin 2.40 Albumin/Globulin Ratio 0.95 Lipase 679 H Medications Medications Current Medications Ondansetron HCl (Zofran Inj) 4 mg Q6H PRN IV NAUSEA AND/OR VOMITING Last administered on 05/26/17 20:54; Admin Dose 4 MG; Start 05/23/17 at 23:30 Acetaminophen (Tylenol Tab) 650 mg Q6H PRN PO PAIN LEVEL 1-3 OR FEVER Last administered on 05/24/17 20:04; Admin Dose 650 MG; Start 05/23/17 at 23:30 Hydromorphone HCl (Dilaudid) 0.5 mg Q4H PRN IV SEVERE PAIN LEVEL 7-10 Last administered on 05/27/17 04:06; Admin Dose 0.5 MG; Start 05/23/17 at 23:30 Hydromorphone HCl 1 mg 1 mg Q3H PRN IV PAIN Last administered on 05/27/17 07: 40; Admin Dose 1 MG; Start 05/24/17 at 04:15 Acetaminophen 100 ml @ 400 mls/hr Q6H PRN IVPB FEVER Last administered on 05/27 02:17; Admin Dose 400 MLS/HR; Start 05/24/17 at 21:00 Dextrose/Sodium Chloride 1,000 ml @ 200 mls/hr Q5H IV Last administered on 08:53; Admin Dose 200 MLS/HR; Start 05/24/17 at 23:30 Meropenem/Sodium Chloride (Merrem 1 Gm/50 ml (Pmx)) 50 ml @ 100 mls/hr Q8 IVPB Last administered on 05/27/17 05:56; Admin Dose 100 MLS/HR; Start 05/25/17 at 07:00 Pantoprazole (Protonix Iv) 40 mg BID IV Last administered on 05/27/17 08:11; Admin Dose 40 MG; Start 05/25/17 at 14:00 Metoclopramide HCl 10 mg 10 mg Q6H IV Last administered on 05/27/17 11:35; Admin Dose 10 MG; Start 05/25/17 at 17:30 Potassium Chloride (KCl 40 MEQ/250 ML NS) 250 ml @ 62.5 mls/hr ONCE ONCE IVPB Last administered on 05/27/17 11:17; Admin Dose 62.5 MLS/HR; Start 05/27/17 at 09:30; Stop 05/27/17 at 13:29 LARA GRAVES May 27, 2017 11:49
--- NOTE | 2017-05-27 17:21 | PN ---
Date/Time of Note Date/Time of Note DATE: 05/27/17 TIME: 16:55 Assessment/Plan VTE Prophylaxis VTE Prophylaxis Intervention: SCD's Lines/Catheters [facility] Peripheral IV Urinary Cath still in place: No Assessment/Plan Chief Complaint/Hosp Course Assessment: Acute severe pancreatitis poss alcoholic Cholelithiasis No evidence of choledocholithiasis Plan: Continue NPO and IV fluids Monitor electrolytes Monitor liver panel Pain management Hep B and C negative Pt seen in collaboration with Dr. Schultz Subjective: Patient is feeling better today. His pain is adequately managed with as needed Dilaudid. According to family abdominal swelling went down. Patient had 3 loose bowel movement, urine color is getting dough mixer today. Had fever once and was treated with Tylenol. Blood cultures pending. Upon the exam patient complaining of abdominal pain. All labs, imaging and other results reviewed, Course reviewed with nursing staff. Lipase is trending down, liver enzymes are trending down as well. Exam: General: well developed, well nourished, alert and oriented x3 , Skin: No lesions, no stigmata chronic liver disease, no evidence of bleeding diathesis Lymphatic: No palpable lymphadenopathy HEENT: No lesions Cardiovascular: Heart: Tachycardia Respiratory: Lungs clear to auscultation and percussion, Gastrointestinal and Liver: Abdomen: Soft, moderate diffuse tenderness, moderately distended, no hernias, no masses, no organomegaly, no ascites, positive guarding, no rebound tenderness, normoactive bowel sounds. Extremities: No cyanosis, clubbing, or edema. Problems: Exam/Review of Systems Vital Signs Vitals Vital Signs Date Time Temp Pulse Resp B/P Pulse Ox O2 Delivery O2 Flow Rate FiO2 05/27/17 12:53 99.6 05/27/17 12:00 146 25 135/84 96 05/27/17 10:00 Nasal Cannula 2.0 Intake and Output 05/26/17 05/26/17 05/27/17 15:00 23:00 07:00 Intake Total 1700 ml 1800 ml 1550 ml Output Total 250 ml 1400 ml 900 ml Balance 1450 ml 400 ml 650 ml Results Result Diagram: 05/27/17 0618 05/27/17 0618 Results 24 hrs Laboratory Tests Test 05/26/17 18:00 05/27/17 00:36 05/27/17 06:18 05/27/17 12:06 Lactic Acid Level 1.4 1.6 1.3 1.4 White Blood Count 14.9 H Red Blood Count 4.44 L Hemoglobin 13.7 L Hematocrit 38.6 L Mean Corpuscular Volume 86.9 Mean Corpuscular Hemoglobin 30.9 Mean Corpuscular Hemoglobin Concent 35.5 Red Cell Distribution Width 12.6 Platelet Count 147 Mean Platelet Volume 11.4 H Neutrophils % 75.3 H Segmented Neutrophils % (Manual) 44 Band Neutrophils % (Manual) 37 H Lymphocytes % 9.1 L Lymphocytes % (Manual) 8 L Monocytes % 14.7 H Monocytes % (Manual) 8 Eosinophils % 0.2 Eosinophils % (Manual) 1 Basophils % 0.2 Plasma Cells % (manual) 2 Nucleated Red Blood Cells % 0.0 Neutrophils # 11.2 H Neutrophils # (Manual) 7.4 Band Neutrophils # 5.5 H Absolute Lymphocytes (Manual) 1.1 Lymphocytes # 1.4 Monocytes # 2.2 H Absolute Monocytes (Manual) 1.1 H Eosinophils # 0.0 Basophils # 0.0 Plasma Cells # (manual) 0.2 H Nucleated Red Blood Cells # 0.0 Platelet Estimate NORMAL Polychromasia 1+ Anisocytosis 1+ Microcytosis 1+ Sodium Level 134 L Potassium Level 3.4 L Chloride Level 99 Carbon Dioxide Level 30 Anion Gap 8 Blood Urea Nitrogen 4 L Creatinine 0.65 Glucose Level 137 Calcium Level 7.5 L Total Bilirubin 1.0 Direct Bilirubin 0.00 Indirect Bilirubin 1.0 Aspartate Amino Transf (AST/SGOT) 30 Alanine Aminotransferase (ALT/SGPT) 72 H Alkaline Phosphatase 70 Total Protein 4.7 #L Albumin 2.3 L Globulin 2.40 Albumin/Globulin Ratio 0.95 Lipase 679 H Medications Medications Current Medications Ondansetron HCl (Zofran Inj) 4 mg Q6H PRN IV NAUSEA AND/OR VOMITING Last administered on 05/26/17 20:54; Admin Dose 4 MG; Start 05/23/17 at 23:30 Acetaminophen (Tylenol Tab) 650 mg Q6H PRN PO PAIN LEVEL 1-3 OR FEVER Last administered on 05/24/17 20:04; Admin Dose 650 MG; Start 05/23/17 at 23:30 Hydromorphone HCl (Dilaudid) 0.5 mg Q4H PRN IV SEVERE PAIN LEVEL 7-10 Last administered on 05/27/17 04:06; Admin Dose 0.5 MG; Start 05/23/17 at 23:30 Hydromorphone HCl 1 mg 1 mg Q3H PRN IV PAIN Last administered on 05/27/17 16: 17; Admin Dose 1 MG; Start 05/24/17 at 04:15 Acetaminophen 100 ml @ 400 mls/hr Q6H PRN IVPB FEVER Last administered on 05/27 11:49; Admin Dose 400 MLS/HR; Start 05/24/17 at 21:00 Dextrose/Sodium Chloride 1,000 ml @ 200 mls/hr Q5H IV Last administered on 15:20; Admin Dose 200 MLS/HR; Start 05/24/17 at 23:30 Meropenem/Sodium Chloride (Merrem 1 Gm/50 ml (Pmx)) 50 ml @ 100 mls/hr Q8 IVPB Last administered on 05/27/17 13:09; Admin Dose 100 MLS/HR; Start 05/25/17 at 07:00 Pantoprazole (Protonix Iv) 40 mg BID IV Last administered on 05/27/17 08:11; Admin Dose 40 MG; Start 05/25/17 at 14:00 Metoclopramide HCl (Reglan) 10 mg Q6H IV Last administered on 05/27/17 11:35; Admin Dose 10 MG; Start 05/25/17 at 17:30 Copies To: CC: KATHY SCHULTZ MD, ANASTASIA NP May 27, 2017 17:05
[2017-05-27] MEDS: ONDANSETRON 4 MG INJ IV PRN (21:17)
[2017-05-27] MEDS: ACETAMINOPHEN 325 MG TAB PO PRN (21:58)
[2017-05-28] VITALS (22 sets, daily range): BP systolic 120–145; BP diastolic 71–101; PULSE 103–134; RESP 17–29
[2017-05-28] MEDS: HYDROmorphONE 0.5 MG/0.5 ML SYG IV PRN ×4 (00:12→19:43)
[2017-05-28] MEDS: HYDROmorphONE 1 MG/ML SYG IV PRN ×4 (02:31→22:34)
[2017-05-28] MEDS: DEXTROSE 5%-0.45% NACL 1,000 ML IV SCH ×4 (04:06→20:40)
[2017-05-28] MEDS: ACETAMINOPHEN 1000MG/100ML IV 100 ML IVPB PRN (04:28)
[2017-05-28 05:53] LABS: ABNORMAL IP MESSAGE 1; BASOPHIL # 0.1 10^3/ul (0.0-0.1); BASOPHILS % 0.3 % (0.0-2.0); EOSINOPHILS # 0.1 10^3/ul (0.0-0.5); EOSINOPHILS % 0.3 % (0.0-7.0); LYMPHOCYTES # 1.5 10^3/ul (0.8-2.9); LYMPHOCYTES % 9.3 % (18.0-55.0); MEAN CORPUSCULAR HEMOGLOBIN 30.2 pg (29.0-33.0); MEAN CORPUSCULAR HGB CONC 35.1 g/dl (32.0-37.0); MEAN CORPUSCULAR VOLUME 85.8 fl (72.0-104.0); MEAN PLATELET VOLUME 10.9 fl (7.4-10.4); MONOCYTE # 2.5 10^3/ul (0.3-0.9); MONOCYTES % 15.7 % (0.0-13.0); NEUTROPHIL # 11.4 10^3/ul (1.6-7.5); PLATELET COUNT 196 10^3/UL (140-415); POSITIVE DIFF @See below; RED BLOOD COUNT 4.31 10^6/ul (4.70-6.10); RED CELL DISTRIBUTION WIDTH 12.1 % (11.5-14.5); WHITE BLOOD COUNT 15.6 10^3/ul (4.8-10.8)
[2017-05-28] MEDS: METOCLOPRAMIDE 10 MG INJ IV SCH ×3 (05:56→17:30)
[2017-05-28 06:18] LABS: CALCIUM 8.1 mg/dl (8.4-10.2); CREATININE 0.56 mg/dl (0.61-1.24); PHOSPHORUS 1.5 mg/dl (2.5-4.9); POTASSIUM 3.3 mmol/L (3.5-5.1)
[2017-05-28] MEDS: MEROPENEM 1 GM/50ML(PMX) 50 ML IVPB SCH ×3 (06:18→22:14)
[2017-05-28] MEDS: PANTOPRAZOLE 40 MG INJ IV SCH ×2 (08:24→20:40)
--- NOTE | 2017-05-28 10:41 | PN ---
Date/Time of Note Date/Time of Note DATE: 05/28/17 TIME: 10:37 Assessment/Plan VTE Prophylaxis VTE Prophylaxis Intervention: SCD's Lines/Catheters [facility] Type (from [facility] Peripheral IV Urinary Cath still in place: No Assessment/Plan Chief Complaint/Hosp Course Chief Complaint/Hosp Course Assessment: Acute severe pancreatitis poss alcoholic Cholelithiasis No evidence of choledocholithiasis Plan: Continue NPO and IV fluids Monitor electrolytes Monitor liver panel Pain management Will order ct abd to r/o pseudocyst vs abscess Pt seen in collaboration with Dr. Schultz Subjective: Course reviewed with nursing staff Patient interviewed and examined All labs, imaging and other results reviewed Patient is feeling a little better today. Continues to c/o abd pain although it has improved. Lipase now in range. Fevers have improved, HR now in the 120' s. Possible cholecystectomy in near future. Will order ct abd to r/o pseudocyst vs abscess Exam: General: well developed, well nourished, alert and oriented x3 , Skin: No lesions, no stigmata chronic liver disease, no evidence of bleeding diathesis Lymphatic: No palpable lymphadenopathy HEENT: No lesions Cardiovascular: Heart: Tachycardia Respiratory: Lungs clear to auscultation Gastrointestinal and Liver: Abdomen: Soft, moderate diffuse tenderness, moderately distended, no hernias, no masses, no organomegaly, no ascites, positive guarding, no rebound tenderness, normoactive bowel sounds. Extremities: No cyanosis, clubbing, or edema. Problems: Exam/Review of Systems Vital Signs Vitals Vital Signs Date Time Temp Pulse Resp B/P Pulse Ox O2 Delivery O2 Flow Rate FiO2 05/28/17 09:30 98 2.0 05/28/17 08:00 116 05/28/17 08:00 99.4 23 140/89 Nasal Cannula Intake and Output 05/27/17 05/27/17 05/28/17 14:59 22:59 06:59 Intake Total 150 ml 1450 ml 800 ml Output Total 1330 ml 450 ml 1200 ml Balance -1180 ml 1000 ml -400 ml Results Result Diagram: 05/28/17 0520 05/28/17 0520 Results 24 hrs Laboratory Tests Test 05/27/17 12:06 05/27/17 17:57 05/28/17 00:34 05/28/17 05:20 Lactic Acid Level 1.4 1.2 1.1 0.9 White Blood Count 15.6 H Red Blood Count 4.31 L Hemoglobin 13.0 L Hematocrit 37.0 L Mean Corpuscular Volume 85.8 Mean Corpuscular Hemoglobin 30.2 Mean Corpuscular Hemoglobin Concent 35.1 Red Cell Distribution Width 12.1 Platelet Count 196 # Mean Platelet Volume 10.9 H Neutrophils % 73.0 Lymphocytes % 9.3 L Monocytes % 15.7 H Eosinophils % 0.3 Basophils % 0.3 Nucleated Red Blood Cells % 0.0 Neutrophils # 11.4 H Lymphocytes # 1.5 Monocytes # 2.5 H Eosinophils # 0.1 Basophils # 0.1 Nucleated Red Blood Cells # 0.0 Sodium Level 134 L Potassium Level 3.3 L Chloride Level 97 Carbon Dioxide Level 31 Anion Gap 9 Blood Urea Nitrogen 6 L Creatinine 0.56 L Glucose Level 122 Calcium Level 8.1 L Phosphorus Level 1.5 L Magnesium Level 2.2 Lipase 260 Medications Medications Current Medications Ondansetron HCl (Zofran Inj) 4 mg Q6H PRN IV NAUSEA AND/OR VOMITING Last administered on 05/27/17 21:17; Admin Dose 4 MG; Start 05/23/17 at 23:30 Acetaminophen (Tylenol Tab) 650 mg Q6H PRN PO PAIN LEVEL 1-3 OR FEVER Last administered on 05/27/17 21:58; Admin Dose 650 MG; Start 05/23/17 at 23:30 Hydromorphone HCl (Dilaudid) 0.5 mg Q4H PRN IV SEVERE PAIN LEVEL 7-10 Last administered on 05/28/17 08:24; Admin Dose 0.5 MG; Start 05/23/17 at 23:30 Hydromorphone HCl 1 mg 1 mg Q3H PRN IV PAIN Last administered on 05/28/17 06: 18; Admin Dose 1 MG; Start 05/24/17 at 04:15 Acetaminophen 100 ml @ 400 mls/hr Q6H PRN IVPB FEVER Last administered on 05/28 04:28; Admin Dose 400 MLS/HR; Start 05/24/17 at 21:00 Dextrose/Sodium Chloride 1,000 ml @ 200 mls/hr Q5H IV Last administered on 08:24; Admin Dose 200 MLS/HR; Start 05/24/17 at 23:30 Meropenem/Sodium Chloride (Merrem 1 Gm/50 ml (Pmx)) 50 ml @ 100 mls/hr Q8 IVPB Last administered on 05/28/17 06:18; Admin Dose 100 MLS/HR; Start 05/25/17 at 07:00 Pantoprazole (Protonix Iv) 40 mg BID IV Last administered on 05/28/17 08:24; Admin Dose 40 MG; Start 05/25/17 at 14:00 Metoclopramide HCl (Reglan) 10 mg Q6H IV Last administered on 05/28/17 05:56; Admin Dose 10 MG; Start 05/25/17 at 17:30 NUPUR SHEFFIELD May 28, 2017 10:41
[2017-05-28] MEDS ORDERED: POTASSIUM PHOSPHATE 40 MEQ in SOD CHLORIDE 0.9% 250 ML IVPB ONE (14:00)
[2017-05-28] MEDS ORDERED: LORAZEPAM 2 MG INJ IV PRN (14:00)
--- NOTE | 2017-05-28 15:50 | PN ---
DATE: 05/28/2017 PATIENT LOCATION: ICU room 103. ADMISSION DIAGNOSIS: Gallstone pancreatitis. SUBJECTIVE: The patient is drowsy and sleepy, apparently has received some Ativan today, so arousable and answers questions very slowly. Has received also pain medications so does not complain that much of pain at this time. OBJECTIVE: GENERAL: Sleepy, arousable. VITAL SIGNS: Temperature 99.9, heart rate 130 regular, respirations 30, blood pressure 140/89, saturation 98% on 2 liter nasal cannula. HEART: Tachycardia. LUNGS: Clear. ABDOMEN: Distended. Bowel sounds hypoactive. I think the abdominal distention is due to ascites. EXTREMITIES: Lower extremity negative. LABORATORY DATA: Sodium low 134, potassium low 3.3, BUN 6, creatinine 0.56 normal, calcium 8.1. Phosphorus low 1.5. Lipase today is 260, normal. Lactic acid 1.2. WBC 15,600 with 73% neutrophils. Hemoglobin 13, hematocrit 37. Coagulation profile from 5 days ago normal. Hepatitis profile, hepatitis A, B surface antigen, B core antibody, hep c antibody all are negative. Urine output in the past 24 hours 2980. IMAGING: No imaging today. ASSESSMENT: This is a 21-year-old gentleman who was admitted with acute abdominal pain, was found to have lipase 56,000 and the ultrasound and MRCP and CT scan revealed presence of extensive pancreatitis, even on CT scan they mention the possible necrosis of tail and body of the pancreas. Meanwhile, the patient was found to have gallstones in the gallbladder. Therefore, with the impression of gallstone pancreatitis, the patient was admitted in the ICU, IV started hydration, n.p.o. Upon questioning from the patient, he admitted today to me that he had 2 or 3 shots of whiskey. A couple hours later he started coming down with severe abdominal pain. On reviewing the x-rays, I see that the cystic duct is very small and the stones are big, therefore, I doubt that the patient has passed a stone from gallbladder to the common bile duct. Therefore, I doubt that this is a gallstone pancreatitis and considering the history of alcohol/whiskey ingestion, I think this is a hemorrhagic pancreatitis secondary to alcohol ingestion. Patient at this time has a lot of ascites. WBC is gradually decreasing. Lipase has normalized actually. Reason for tachycardia, probably is inflammation of the peritoneal surfaces, due to presence of lipase and amylase rich fluid as ascites in the abdominal cavity. PLAN: Continue current care, hydration, protection of the kidney function, prevention of the acute mucosal injury of the stomach and the prevention of deep vein thrombosis. Apparently, a CT scan has been reported as we requested today, which I agree with that to do a CT scan of the abdomen and pelvis with IV contrast for followup of the status of the pancreas and also the amount of ascitic fluid. The surgical team will continue to follow the patient. Dictated By: KAPIL MADSEN MD PS/NTS Conf#: [id number] DID#: [id number] MTDD
--- NOTE | 2017-05-28 16:26 | PN ---
Date/Time of Note Date/Time of Note DATE: 05/28/17 TIME: 16:25 Assessment/Plan VTE Prophylaxis VTE Prophylaxis Intervention: SCD's Lines/Catheters [facility] ([facility] Peripheral IV Urinary Cath still in place: No Assessment/Plan Chief Complaint/Hosp Course 1. SIRS secondary to gallstone pancreatitis Continue n.p.o. status, IV fluids Surgical plan is for cholecystectomy within a week once sirs and pancreatitis has resolved Continue ICU monitoring Continue meropenem GI following Follow-up on repeat CT abdomen 2. Elevated LFTs No evidence of choledocholithiasis Hepatitis viral panel negative Monitor Prophylaxis: SCDs Problems: Subjective 24 Hr Interval Summary Gastrointestinal: pain Exam/Review of Systems Vital Signs Vitals Vital Signs Date Time Temp Pulse Resp B/P Pulse Ox O2 Delivery O2 Flow Rate FiO2 05/28/17 12:00 124 05/28/17 09:30 98 2.0 05/28/17 08:00 99.4 23 140/89 Nasal Cannula Intake and Output 05/27/17 05/27/17 05/28/17 14:59 22:59 06:59 Intake Total 150 ml 1450 ml 800 ml Output Total 1330 ml 450 ml 1200 ml Balance -1180 ml 1000 ml -400 ml Exam Constitutional: alert, oriented Respiratory: clear to auscultation Cardiovascular: other (Tachycardic) Gastrointestinal: soft, tender, No distended Musculoskeletal: nl extremities to inspection Results Result Diagram: 05/28/17 0520 05/28/17 0520 Results 24 hrs Laboratory Tests Test 05/27/17 17:57 05/28/17 00:34 05/28/17 05:20 05/28/17 12:00 Lactic Acid Level 1.2 1.1 0.9 1.2 White Blood Count 15.6 H Red Blood Count 4.31 L Hemoglobin 13.0 L Hematocrit 37.0 L Mean Corpuscular Volume 85.8 Mean Corpuscular Hemoglobin 30.2 Mean Corpuscular Hemoglobin Concent 35.1 Red Cell Distribution Width 12.1 Platelet Count 196 # Mean Platelet Volume 10.9 H Neutrophils % 73.0 Lymphocytes % 9.3 L Monocytes % 15.7 H Eosinophils % 0.3 Basophils % 0.3 Nucleated Red Blood Cells % 0.0 Neutrophils # 11.4 H Lymphocytes # 1.5 Monocytes # 2.5 H Eosinophils # 0.1 Basophils # 0.1 Nucleated Red Blood Cells # 0.0 Sodium Level 134 L Potassium Level 3.3 L Chloride Level 97 Carbon Dioxide Level 31 Anion Gap 9 Blood Urea Nitrogen 6 L Creatinine 0.56 L Glucose Level 122 Calcium Level 8.1 L Phosphorus Level 1.5 L Magnesium Level 2.2 Lipase 260 Medications Medications Current Medications Ondansetron HCl (Zofran Inj) 4 mg Q6H PRN IV NAUSEA AND/OR VOMITING Last administered on 05/27/17 21:17; Admin Dose 4 MG; Start 05/23/17 at 23:30 Acetaminophen (Tylenol Tab) 650 mg Q6H PRN PO PAIN LEVEL 1-3 OR FEVER Last administered on 05/27/17 21:58; Admin Dose 650 MG; Start 05/23/17 at 23:30 Hydromorphone HCl (Dilaudid) 0.5 mg Q4H PRN IV SEVERE PAIN LEVEL 7-10 Last administered on 05/28/17 08:24; Admin Dose 0.5 MG; Start 05/23/17 at 23:30 Hydromorphone HCl 1 mg 1 mg Q3H PRN IV PAIN Last administered on 05/28/17 11: 55; Admin Dose 1 MG; Start 05/24/17 at 04:15 Acetaminophen 100 ml @ 400 mls/hr Q6H PRN IVPB FEVER Last administered on 05/28 04:28; Admin Dose 400 MLS/HR; Start 05/24/17 at 21:00 Dextrose/Sodium Chloride 1,000 ml @ 200 mls/hr Q5H IV Last administered on 08:24; Admin Dose 200 MLS/HR; Start 05/24/17 at 23:30 Meropenem/Sodium Chloride (Merrem 1 Gm/50 ml (Pmx)) 50 ml @ 100 mls/hr Q8 IVPB Last administered on 05/28/17 06:18; Admin Dose 100 MLS/HR; Start 05/25/17 at 07:00 Pantoprazole (Protonix Iv) 40 mg BID IV Last administered on 05/28/17 08:24; Admin Dose 40 MG; Start 05/25/17 at 14:00 Metoclopramide HCl 10 mg 10 mg Q6H IV Last administered on 05/28/17 11:55; Admin Dose 10 MG; Start 05/25/17 at 17:30 Potassium Phosphate/Sodium Chloride (K Phos (Meq)/NS) 259.0909 ml @ 64.773 m... ONCE ONCE IVPB ; Start 05/28/17 at 14:00; Stop 05/28/17 at 17:59 Lorazepam (Ativan) 0.5 mg Q6H PRN IV ANXIETY Last administered on 05/28/17t 13: 43; Admin Dose 0.5 MG; Start 05/28/17 at 14:00 LARA GRAVES May 28, 2017 16:26
[2017-05-28] MEDS ORDERED: SOD CHLORIDE 0.9% 100 ML ONE (21:14)
[2017-05-28] MEDS ORDERED: IOHEXOL 300MG/ML 150 ML BTL ONE (21:14)
[2017-05-29] VITALS (19 sets, daily range): BP systolic 102–137; BP diastolic 68–94; PULSE 93–124; RESP 15–25
[2017-05-29] MEDS: DEXTROSE 5%-0.45% NACL 1,000 ML IV SCH ×6 (00:04→23:19)
--- NOTE | 2017-05-29 00:08 | RADRPT ---
PROCEDURE: CT Abdomen and pelvis with contrast. CLINICAL INDICATION: Abdominal pain. TECHNIQUE: CT scan of the abdomen and pelvis with contrast was performed on a multi-detector high -resolution CT scanner. The patient was scanned following the uncomplicated administration of 90 cc of Omnipaque 300 intravenous contrast. Coronal and sagittal reformatted images were obtained from the axial source images. Images were reviewed on a high-resolution PACS workstation. DICOM images ar e available. One or more of the following dose reduction techniques were used: - Automated exposure control. - Adjustment of the mA and/or kV according to patient size. - Use of iterative reconstruction technique. Exam CTD/vol = 9.31 mGy. Total exam DLP = 601.32 mGy-cm. COMPARISON: 05/25/2017. FINDINGS: Evaluation of the lung bases demonstrates bilateral moderate to large pleural effusion with underlyi ng atelectasis. Abdomen: The liver is normal in size. There is no focal mass or dilatation of the biliary tree. The gallbladder is not distended. The pancreas is diffusely edematous with extensive surrounding strandi ng and free fluid. Again demonstrated is low attenuation within the head and body and partial tail o f the pancreas compatible pancreatic necrosis. The spleen and bilateral adrenal glands are within no rmal limits. Bilateral kidneys are normal in size with symmetric enhancement. There is no focal mass , hydronephrosis or hydroureter. There is no retroperitoneal adenopathy. The abdominal aorta is of n ormal caliber. There is no bowel obstruction or free air. A normal appendix is identified. There is no diverticulos is or diverticulitis. Pelvis: The bladder is unremarkable. There is moderate pelvic free fluid. The prostate and seminal v esicles are within normal limits. There is no significant pelvic adenopathy. Evaluation of the osseous structures demonstrates no suspicious lytic or blastic lesion. IMPRESSION: Severe acute pancreatitis with extensive surrounding inflammatory changes and free fluid, unchanged compared with 05/25/2017. Again demonstrated is low attenuation within the head and body and partial tail of the pancreas compatible with pancreatic necrosis, unchanged. Moderate abdominal and pelvic free fluid, unchanged. Bilateral moderate to large pleural effusions with underlying atelectasis, increased compared with t he prior study. .Cade Guaman, MD, MD Date Time Electronically viewed and signed by .Cade Guaman MD, MD on 05/29/2017 00:07 .T/
[2017-05-29] MEDS: METOCLOPRAMIDE 10 MG INJ IV SCH ×5 (00:31→21:33)
[2017-05-29] MEDS: HYDROmorphONE 1 MG/ML SYG IV PRN ×5 (03:29→22:45)
[2017-05-29] MEDS: ACETAMINOPHEN 1000MG/100ML IV 100 ML IVPB PRN ×2 (05:04→16:45)
[2017-05-29] MEDS: MEROPENEM 1 GM/50ML(PMX) 50 ML IVPB SCH ×3 (05:52→21:34)
[2017-05-29 06:04] LABS: ABNORMAL IP MESSAGE 1; BASOPHIL # 0.1 10^3/ul (0.0-0.1); BASOPHILS % 0.3 % (0.0-2.0); EOSINOPHILS # 0.1 10^3/ul (0.0-0.5); EOSINOPHILS % 0.4 % (0.0-7.0); HEMATOCRIT 36.6 % (42.0-52.0); LYMPHOCYTES # 1.6 10^3/ul (0.8-2.9); LYMPHOCYTES % 10.3 % (18.0-55.0); MEAN CORPUSCULAR HEMOGLOBIN 30.3 pg (29.0-33.0); MEAN CORPUSCULAR HGB CONC 35.5 g/dl (32.0-37.0); MEAN CORPUSCULAR VOLUME 85.3 fl (72.0-104.0); MEAN PLATELET VOLUME 10.3 fl (7.4-10.4); MONOCYTE # 2.6 10^3/ul (0.3-0.9); MONOCYTES % 16.2 % (0.0-13.0); NEUTROPHIL # 11.1 10^3/ul (1.6-7.5); NEUTROPHILS % 70.2 % (30.0-74.0); PLATELET COUNT 215 10^3/UL (140-415); POSITIVE DIFF @See below; RED BLOOD COUNT 4.29 10^6/ul (4.70-6.10); RED CELL DISTRIBUTION WIDTH 12.6 % (11.5-14.5); WHITE BLOOD COUNT 15.8 10^3/ul (4.8-10.8)
[2017-05-29 06:27] LABS: ALBUMIN 2.9 g/dl (3.3-4.9); ALBUMIN/GLOBULIN RATIO 0.85; BILIRUBIN,INDIRECT 0.9 mg/dl (0-1.1); BILIRUBIN,TOTAL 0.9 mg/dl (0.2-1.3); CREATININE 0.67 mg/dl (0.61-1.24); TOTAL PROTEIN 6.3 g/dl (6.1-8.1)
[2017-05-29 06:32] LABS: MAGNESIUM 2.2 mg/dl (1.7-2.5); PHOSPHORUS 2.1 mg/dl (2.5-4.9)
[2017-05-29] MEDS: HYDROmorphONE 0.5 MG/0.5 ML SYG IV PRN (07:02)
[2017-05-29] MEDS: PANTOPRAZOLE 40 MG INJ IV SCH ×2 (09:21→21:32)
--- NOTE | 2017-05-29 11:32 | PN ---
Date/Time of Note Date/Time of Note DATE: 05/29/17 TIME: 11:28 Assessment/Plan VTE Prophylaxis VTE Prophylaxis Intervention: SCD's Lines/Catheters IV [facility]ter Type (from [facility]): Peripheral IV Urinary Cath still in place: No Assessment/Plan Chief Complaint/Hosp Course Chief Complaint/Hosp Course Assessment: Acute severe pancreatitis poss alcoholic Cholelithiasis No evidence of choledocholithiasis Plan: Continue NPO and IV fluids Pain management Monitor liver panel No change in CT scan from previous imaging Pt seen in collaboration with Dr. Schultz Subjective: Course reviewed with nursing staff Patient interviewed and examined All labs, imaging and other results reviewed Patient is feeling a little better today. Hr has improved. Possible cholecystectomy in near future. No change in CT results. Pt states he is passing flatus, with pain management concern for ileus, will continue to monitor. Exam: General: well developed, well nourished, alert and oriented x3 , Skin: No lesions, no stigmata chronic liver disease, no evidence of bleeding diathesis Lymphatic: No palpable lymphadenopathy HEENT: No lesions Cardiovascular: Heart: Tachycardia Respiratory: Lungs clear to auscultation Gastrointestinal and Liver: Abdomen: Soft, moderate diffuse tenderness, moderately distended, no hernias, no masses, no organomegaly, no ascites, positive guarding, no rebound tenderness, normoactive bowel sounds. Extremities: No cyanosis, clubbing, or edema. Problems: Exam/Review of Systems Vital Signs Vitals Vital Signs Date Time Temp Pulse Resp B/P Pulse Ox O2 Delivery O2 Flow Rate FiO2 05/29/17 09:00 93 16 108/68 97 Nasal Cannula 05/29/17 08:00 98.9 05/29/17 04:00 2.0 05/29/17 02:54 27 Intake and Output 05/28/17 05/28/17 05/29/17 15:00 23:00 07:00 Intake Total 1794.7 ml 1284.3 ml 1560 ml Output Total 1400 ml 771 ml 753 ml Balance 394.7 ml 513.3 ml 807 ml Results Result Diagram: 05/29/17 0550 05/29/17 0550 Results 24 hrs Laboratory Tests Test 05/28/17 12:00 05/29/17 05:50 Lactic Acid Level 1.2 White Blood Count 15.8 H Red Blood Count 4.29 L Hemoglobin 13.0 L Hematocrit 36.6 L Mean Corpuscular Volume 85.3 Mean Corpuscular Hemoglobin 30.3 Mean Corpuscular Hemoglobin Concent 35.5 Red Cell Distribution Width 12.6 Platelet Count 215 Mean Platelet Volume 10.3 Neutrophils % 70.2 Lymphocytes % 10.3 L Monocytes % 16.2 H Eosinophils % 0.4 Basophils % 0.3 Nucleated Red Blood Cells % 0.0 Neutrophils # 11.1 H Lymphocytes # 1.6 Monocytes # 2.6 H Eosinophils # 0.1 Basophils # 0.1 Nucleated Red Blood Cells # 0.0 Sodium Level 135 Potassium Level 3.0 L Chloride Level 95 L Carbon Dioxide Level 32 H Anion Gap 11 Blood Urea Nitrogen 6 L Creatinine 0.67 Glucose Level 155 Calcium Level 8.0 L Phosphorus Level 2.1 L Magnesium Level 2.2 Total Bilirubin 0.9 Direct Bilirubin 0.00 Indirect Bilirubin 0.9 Aspartate Amino Transf (AST/SGOT) 33 Alanine Aminotransferase (ALT/SGPT) 66 Alkaline Phosphatase 82 Total Protein 6.3 # Albumin 2.9 L Globulin 3.40 H Albumin/Globulin Ratio 0.85 Lipase 123 Medications Medications Current Medications Ondansetron HCl (Zofran Inj) 4 mg Q6H PRN IV NAUSEA AND/OR VOMITING Last administered on 05/27/17 21:17; Admin Dose 4 MG; Start 05/23/17 at 23:30 Acetaminophen (Tylenol Tab) 650 mg Q6H PRN PO PAIN LEVEL 1-3 OR FEVER Last administered on 05/27/17 21:58; Admin Dose 650 MG; Start 05/23/17 at 23:30 Hydromorphone HCl (Dilaudid) 0.5 mg Q4H PRN IV SEVERE PAIN LEVEL 7-10 Last administered on 05/29/17 07:02; Admin Dose 0.5 MG; Start 05/23/17 at 23:30 Hydromorphone HCl 1 mg 1 mg Q3H PRN IV PAIN Last administered on 05/29/17 11: 00; Admin Dose 1 MG; Start 05/24/17 at 04:15 Acetaminophen 100 ml @ 400 mls/hr Q6H PRN IVPB FEVER Last administered on 05/29 05:04; Admin Dose 400 MLS/HR; Start 05/24/17 at 21:00 Dextrose/Sodium Chloride 1,000 ml @ 200 mls/hr Q5H IV Last administered on 09:24; Admin Dose 200 MLS/HR; Start 05/24/17 at 23:30 Meropenem/Sodium Chloride (Merrem 1 Gm/50 ml (Pmx)) 50 ml @ 100 mls/hr Q8 IVPB Last administered on 05/29/17 05:52; Admin Dose 100 MLS/HR; Start 05/25/17 at 07:00 Pantoprazole (Protonix Iv) 40 mg BID IV Last administered on 05/29/17 09:21; Admin Dose 40 MG; Start 05/25/17 at 14:00 Metoclopramide HCl 10 mg 10 mg Q6H IV Last administered on 05/29/17 05:52; Admin Dose 10 MG; Start 05/25/17 at 17:30 Potassium Phosphate/Sodium Chloride (K Phos (Meq)/NS) 259.0909 ml @ 64.773 m... ONCE ONCE IVPB ; Start 05/29/17 at 11:30; Stop 05/29/17 at 15:29; Status NUPUR PURVIS May 29, 2017 11:32
[2017-05-29] MEDS ORDERED: POTASSIUM PHOSPHATE 40 MEQ in SOD CHLORIDE 0.9% 250 ML IVPB ONE (12:30)
--- NOTE | 2017-05-29 15:25 | PN ---
Date/Time of Note Date/Time of Note DATE: 05/29/17 TIME: 15:23 Assessment/Plan VTE Prophylaxis VTE Prophylaxis Intervention: SCD's Lines/Catheters IV C[facility] Type [facility]from [facility]): Peripheral IV Urinary Cath still in place: No Assessment/Plan Chief Complaint/Hosp Course 1. SIRS secondary to gallstone pancreatitis with necrotizing pancreatitis Continue n.p.o. status, IV fluids Surgical plan is for cholecystectomy within a week once sirs and pancreatitis has resolved Downgrade to telemetry Continue meropenem GI following Repeat CT abdomen is unchanged 2. Elevated LFTs No evidence of choledocholithiasis Hepatitis viral panel negative Monitor Prophylaxis: SCDs Problems: Subjective 24 Hr Interval Summary Gastrointestinal: pain Exam/Review of Systems Vital Signs Vitals Vital Signs Date Time Temp Pulse Resp B/P Pulse Ox O2 Delivery O2 Flow Rate FiO2 05/29/17 14:00 123 19 133/90 96 05/29/17 13:00 Nasal Cannula 05/29/17 12:00 98.8 05/29/17 04:00 2.0 05/29/17 02:54 27 Intake and Output 05/28/17 05/28/17 05/29/17 15:00 23:00 07:00 Intake Total 1794.7 ml 1284.3 ml 1560 ml Output Total 1400 ml 771 ml 753 ml Balance 394.7 ml 513.3 ml 807 ml Exam Constitutional: alert, oriented Respiratory: clear to auscultation Cardiovascular: regular rate and rhythm Gastrointestinal: soft, tender, No distended Musculoskeletal: nl extremities to inspection Results Result Diagram: 05/29/17 0550 05/29/17 0550 Results 24 hrs Laboratory Tests Test 05/29/17 05:50 White Blood Count 15.8 H Red Blood Count 4.29 L Hemoglobin 13.0 L Hematocrit 36.6 L Mean Corpuscular Volume 85.3 Mean Corpuscular Hemoglobin 30.3 Mean Corpuscular Hemoglobin Concent 35.5 Red Cell Distribution Width 12.6 Platelet Count 215 Mean Platelet Volume 10.3 Neutrophils % 70.2 Lymphocytes % 10.3 L Monocytes % 16.2 H Eosinophils % 0.4 Basophils % 0.3 Nucleated Red Blood Cells % 0.0 Neutrophils # 11.1 H Lymphocytes # 1.6 Monocytes # 2.6 H Eosinophils # 0.1 Basophils # 0.1 Nucleated Red Blood Cells # 0.0 Sodium Level 135 Potassium Level 3.0 L Chloride Level 95 L Carbon Dioxide Level 32 H Anion Gap 11 Blood Urea Nitrogen 6 L Creatinine 0.67 Glucose Level 155 Calcium Level 8.0 L Phosphorus Level 2.1 L Magnesium Level 2.2 Total Bilirubin 0.9 Direct Bilirubin 0.00 Indirect Bilirubin 0.9 Aspartate Amino Transf (AST/SGOT) 33 Alanine Aminotransferase (ALT/SGPT) 66 Alkaline Phosphatase 82 Total Protein 6.3 # Albumin 2.9 L Globulin 3.40 H Albumin/Globulin Ratio 0.85 Lipase 123 Medications Medications Current Medications Ondansetron HCl (Zofran Inj) 4 mg Q6H PRN IV NAUSEA AND/OR VOMITING Last administered on 05/27/17 21:17; Admin Dose 4 MG; Start 05/23/17 at 23:30 Acetaminophen (Tylenol Tab) 650 mg Q6H PRN PO PAIN LEVEL 1-3 OR FEVER Last administered on 05/27/17 21:58; Admin Dose 650 MG; Start 05/23/17 at 23:30 Hydromorphone HCl (Dilaudid) 0.5 mg Q4H PRN IV SEVERE PAIN LEVEL 7-10 Last administered on 05/29/17 07:02; Admin Dose 0.5 MG; Start 05/23/17 at 23:30 Hydromorphone HCl 1 mg 1 mg Q3H PRN IV PAIN Last administered on 05/29/17 14: 30; Admin Dose 1 MG; Start 05/24/17 at 04:15 Acetaminophen 100 ml @ 400 mls/hr Q6H PRN IVPB FEVER Last administered on 05/29 05:04; Admin Dose 400 MLS/HR; Start 05/24/17 at 21:00 Dextrose/Sodium Chloride 1,000 ml @ 200 mls/hr Q5H IV Last administered on 14:30; Admin Dose 200 MLS/HR; Start 05/24/17 at 23:30 Meropenem/Sodium Chloride (Merrem 1 Gm/50 ml (Pmx)) 50 ml @ 100 mls/hr Q8 IVPB Last administered on 05/29/17 14:30; Admin Dose 100 MLS/HR; Start 05/25/17 at 07:00 Pantoprazole (Protonix Iv) 40 mg BID IV Last administered on 05/29/17 09:21; Admin Dose 40 MG; Start 05/25/17 at 14:00 Metoclopramide HCl 10 mg 10 mg Q6H IV Last administered on 05/29/17 11:56; Admin Dose 10 MG; Start 05/25/17 at 17:30 Potassium Phosphate/Sodium Chloride (K Phos (Meq)/NS) 259.0909 ml @ 64.773 m... ONCE ONCE IVPB Last administered on 05/29/17 13:00; Admin Dose 64.773 MLS/HR; Start 05/29/17 at 12:30; Stop 05/29/17 at 16:29 LARA GRAVES May 29, 2017 15:25
[2017-05-29] MEDS: ONDANSETRON 4 MG INJ IV PRN (22:45)
[2017-05-30] VITALS (11 sets, daily range): BP systolic 123–133; BP diastolic 73–82; PULSE 110–121; RESP 18–21
[2017-05-30] MEDS ORDERED: DILTIAZEM 25 MG INJ IV ONE (01:30)
[2017-05-30] MEDS: HYDROmorphONE 1 MG/ML SYG IV PRN ×6 (03:10→23:10)
[2017-05-30] MEDS: METOCLOPRAMIDE 10 MG INJ IV SCH ×4 (05:30→23:10)
[2017-05-30] MEDS: MEROPENEM 1 GM/50ML(PMX) 50 ML IVPB SCH ×3 (06:38→20:39)
[2017-05-30] MEDS: DEXTROSE 5%-0.45% NACL 1,000 ML IV SCH ×4 (06:38→21:59)
[2017-05-30] MEDS: PANTOPRAZOLE 40 MG INJ IV SCH ×2 (08:43→20:39)
[2017-05-30 09:49] LABS: ABNORMAL IP MESSAGE 1; BASOPHIL # 0.1 10^3/ul (0.0-0.1); BASOPHILS % 0.3 % (0.0-2.0); EOSINOPHILS # 0.1 10^3/ul (0.0-0.5); EOSINOPHILS % 0.5 % (0.0-7.0); HEMATOCRIT 37.9 % (42.0-52.0); HEMOGLOBIN 13.1 g/dl (14.0-18.0); LYMPHOCYTES # 2.1 10^3/ul (0.8-2.9); LYMPHOCYTES % 10.7 % (18.0-55.0); MEAN CORPUSCULAR HEMOGLOBIN 29.9 pg (29.0-33.0); MEAN CORPUSCULAR HGB CONC 34.6 g/dl (32.0-37.0); MEAN CORPUSCULAR VOLUME 86.5 fl (72.0-104.0); MEAN PLATELET VOLUME 10.2 fl (7.4-10.4); MONOCYTE # 2.5 10^3/ul (0.3-0.9); MONOCYTES % 12.8 % (0.0-13.0); NEUTROPHILS % 72.4 % (30.0-74.0); NUCLEATED RED BLOOD CELLS% 0.2 /100WBC (0.0-0.0); PLATELET COUNT 281 10^3/UL (140-415); POSITIVE DIFF @See below; RED BLOOD COUNT 4.38 10^6/ul (4.70-6.10); RED CELL DISTRIBUTION WIDTH 12.9 % (11.5-14.5); WHITE BLOOD COUNT 19.4 10^3/ul (4.8-10.8)
[2017-05-30 10:07] LABS: CALCIUM 7.9 mg/dl (8.4-10.2); CREATININE 0.67 mg/dl (0.61-1.24); MAGNESIUM 2.2 mg/dl (1.7-2.5); PHOSPHORUS 2.7 mg/dl (2.5-4.9)
[2017-05-30 10:14] LABS: POTASSIUM 2.9 mmol/L (3.5-5.1)
[2017-05-30] MEDS: POTASSIUM CHLORIDE 250 ML IVPB SCH ×2 (11:31→20:39)
--- NOTE | 2017-05-30 13:05 | PN ---
Date/Time of Note Date/Time of Note DATE: 05/30/17 TIME: 12:37 Assessment/Plan VTE Prophylaxis VTE Prophylaxis Intervention: SCD's Lines/Catheters IV Catheter Type (from [facility]): Peripheral IV Urinary Cath still in place: No Assessment/Plan Chief Complaint/Hosp Course Assessment: Fever Hypokalemia Acute severe pancreatitis poss alcoholic Cholelithiasis No evidence of choledocholithiasis Plan: Continue NPO and IV fluids Pain management Continue Abx therapy Monitor electrolytes and replace as needed No change in CT scan from previous imaging Pt seen in collaboration with Dr. Schultz Subjective: Patient is feeling well today. C/o insomnia at night and feeling tired during the day. Wishes to have some medicine for sleep. Patient continues having fevers. Possible cholecystectomy in near future. No change in CT results. Lipase and Liver enzymes are WNL. Upon the exam patient complaining of generalized abdominal pain. All labs, imaging and other results reviewed, Course reviewed with nursing staff. Exam: General: well developed, well nourished, alert and oriented x3 , Skin: No lesions, no stigmata chronic liver disease, no evidence of bleeding diathesis Lymphatic: No palpable lymphadenopathy HEENT: No lesions Cardiovascular: Heart: Tachycardia Respiratory: Lungs clear to auscultation and percussion, Gastrointestinal and Liver: Abdomen: Soft, moderate diffuse tenderness, moderately distended, no hernias, no masses, no organomegaly, no ascites, positive guarding, no rebound tenderness, normoactive bowel sounds. Extremities: No cyanosis, clubbing, or edema. Problems: Exam/Review of Systems Vital Signs Vitals Vital Signs Date Time Temp Pulse Resp B/P Pulse Ox O2 Delivery O2 Flow Rate FiO2 05/30/17 12:02 100.1 120 19 133/82 95 05/29/17 15:00 Room Air 05/29/17 04:00 2.0 05/29/17 02:54 27 Intake and Output 05/29/17 05/29/17 05/30/17 15:00 23:00 07:00 Intake Total 1250 ml 100 ml 2500 ml Balance 1250 ml 100 ml 2500 ml Results Result Diagram: 05/30/17 0830 05/30/17 0830 Results 24 hrs Laboratory Tests Test 05/30/17 08:30 White Blood Count 19.4 #H Red Blood Count 4.38 L Hemoglobin 13.1 L Hematocrit 37.9 L Mean Corpuscular Volume 86.5 Mean Corpuscular Hemoglobin 29.9 Mean Corpuscular Hemoglobin Concent 34.6 Red Cell Distribution Width 12.9 Platelet Count 281 # Mean Platelet Volume 10.2 Neutrophils % 72.4 Lymphocytes % 10.7 L Monocytes % 12.8 Eosinophils % 0.5 Basophils % 0.3 Nucleated Red Blood Cells % 0.2 H Neutrophils # 14.0 H Lymphocytes # 2.1 Monocytes # 2.5 H Eosinophils # 0.1 Basophils # 0.1 Nucleated Red Blood Cells # 0.0 Sodium Level 132 L Potassium Level 2.9 *L Chloride Level 93 L Carbon Dioxide Level 31 Anion Gap 11 Blood Urea Nitrogen 5 L Creatinine 0.67 Glucose Level 142 Calcium Level 7.9 L Phosphorus Level 2.7 Magnesium Level 2.2 Medications Medications Current Medications Ondansetron HCl (Zofran Inj) 4 mg Q6H PRN IV NAUSEA AND/OR VOMITING Last administered on 05/29/17 22:45; Admin Dose 4 MG; Start 05/23/17 at 23:30 Acetaminophen (Tylenol Tab) 650 mg Q6H PRN PO PAIN LEVEL 1-3 OR FEVER Last administered on 05/27/17 21:58; Admin Dose 650 MG; Start 05/23/17 at 23:30 Hydromorphone HCl (Dilaudid) 0.5 mg Q4H PRN IV SEVERE PAIN LEVEL 7-10 Last administered on 05/29/17 07:02; Admin Dose 0.5 MG; Start 05/23/17 at 23:30 Hydromorphone HCl 1 mg 1 mg Q3H PRN IV PAIN Last administered on 05/30/17 10: 33; Admin Dose 1 MG; Start 05/24/17 at 04:15 Acetaminophen 100 ml @ 400 mls/hr Q6H PRN IVPB FEVER Last administered on 05/29 16:45; Admin Dose 400 MLS/HR; Start 05/24/17 at 21:00 Dextrose/Sodium Chloride 1,000 ml @ 200 mls/hr Q5H IV Last administered on 11:33; Admin Dose 200 MLS/HR; Start 05/24/17 at 23:30 Meropenem/Sodium Chloride (Merrem 1 Gm/50 ml (Pmx)) 50 ml @ 100 mls/hr Q8 IVPB Last administered on 05/30/17 06:38; Admin Dose 100 MLS/HR; Start 05/25/17 at 07:00 Pantoprazole (Protonix Iv) 40 mg BID IV Last administered on 05/30/17 08:43; Admin Dose 40 MG; Start 05/25/17 at 14:00 Metoclopramide HCl 10 mg 10 mg Q6H IV Last administered on 05/30/17 11:33; Admin Dose 10 MG; Start 05/25/17 at 17:30 Potassium Chloride (KCl 40 MEQ/250 ML NS) 250 ml @ 62.5 mls/hr Q4H IVPB Last administered on 05/30/17 11:31; Admin Dose 62.5 MLS/HR; Start 05/30/17 at 11:30 ; Stop 05/30/17 at 19:29 Copies To: CC: KATHY SCHULTZ MD, ANASTASIA NP May 30, 2017 12:48
--- NOTE | 2017-05-30 14:23 | PN ---
Date/Time of Note Date/Time of Note DATE: 05/30/17 TIME: 14:21 Assessment/Plan VTE Prophylaxis VTE Prophylaxis Intervention: SCD's Lines/Catheters IV C[facility] Type (from [facility]): Peripheral IV Urinary Cath still in place: No Assessment/Plan Chief Complaint/Hosp Course 1. SIRS secondary to gallstone versus alcohol pancreatitis with necrotizing pancreatitis Start clear liquid diet, IV fluids Surgical plan is for HIDA scan to evaluate for cholecystitis, if scan is negative then surgery does not recommend lap layne otherwise we will do surgery if HIDA is positive Continue meropenem GI following Repeat CT abdomen is unchanged 2. Elevated LFTs No evidence of choledocholithiasis Hepatitis viral panel negative Monitor 3. Hypokalemia Replete Prophylaxis: SCDs Problems: Subjective 24 Hr Interval Summary Gastrointestinal: pain Exam/Review of Systems Vital Signs Vitals Vital Signs Date Time Temp Pulse Resp B/P Pulse Ox O2 Delivery O2 Flow Rate FiO2 05/30/17 12:47 110 05/30/17 12:02 100.1 19 133/82 95 05/29/17 15:00 Room Air 05/29/17 04:00 2.0 05/29/17 02:54 27 Intake and Output 05/29/17 05/29/17 05/30/17 15:00 23:00 07:00 Intake Total 1250 ml 100 ml 2500 ml Balance 1250 ml 100 ml 2500 ml Exam Constitutional: alert, oriented Respiratory: clear to auscultation Cardiovascular: regular rate and rhythm Gastrointestinal: soft, No distended Musculoskeletal: nl extremities to inspection Results Result Diagram: 05/30/17 0830 05/30/17 0830 Results 24 hrs Laboratory Tests Test 05/30/17 08:30 White Blood Count 19.4 #H Red Blood Count 4.38 L Hemoglobin 13.1 L Hematocrit 37.9 L Mean Corpuscular Volume 86.5 Mean Corpuscular Hemoglobin 29.9 Mean Corpuscular Hemoglobin Concent 34.6 Red Cell Distribution Width 12.9 Platelet Count 281 # Mean Platelet Volume 10.2 Neutrophils % 72.4 Lymphocytes % 10.7 L Monocytes % 12.8 Eosinophils % 0.5 Basophils % 0.3 Nucleated Red Blood Cells % 0.2 H Neutrophils # 14.0 H Lymphocytes # 2.1 Monocytes # 2.5 H Eosinophils # 0.1 Basophils # 0.1 Nucleated Red Blood Cells # 0.0 Sodium Level 132 L Potassium Level 2.9 *L Chloride Level 93 L Carbon Dioxide Level 31 Anion Gap 11 Blood Urea Nitrogen 5 L Creatinine 0.67 Glucose Level 142 Calcium Level 7.9 L Phosphorus Level 2.7 Magnesium Level 2.2 Medications Medications Current Medications Ondansetron HCl (Zofran Inj) 4 mg Q6H PRN IV NAUSEA AND/OR VOMITING Last administered on 05/29/17 22:45; Admin Dose 4 MG; Start 05/23/17 at 23:30 Acetaminophen (Tylenol Tab) 650 mg Q6H PRN PO PAIN LEVEL 1-3 OR FEVER Last administered on 05/27/17 21:58; Admin Dose 650 MG; Start 05/23/17 at 23:30 Hydromorphone HCl (Dilaudid) 0.5 mg Q4H PRN IV SEVERE PAIN LEVEL 7-10 Last administered on 05/29/17 07:02; Admin Dose 0.5 MG; Start 05/23/17 at 23:30 Hydromorphone HCl 1 mg 1 mg Q3H PRN IV PAIN Last administered on 05/30/17 10: 33; Admin Dose 1 MG; Start 05/24/17 at 04:15 Acetaminophen 100 ml @ 400 mls/hr Q6H PRN IVPB FEVER Last administered on 05/29 16:45; Admin Dose 400 MLS/HR; Start 05/24/17 at 21:00 Dextrose/Sodium Chloride 1,000 ml @ 200 mls/hr Q5H IV Last administered on 11:33; Admin Dose 200 MLS/HR; Start 05/24/17 at 23:30 Meropenem/Sodium Chloride (Merrem 1 Gm/50 ml (Pmx)) 50 ml @ 100 mls/hr Q8 IVPB Last administered on 05/30/17 06:38; Admin Dose 100 MLS/HR; Start 05/25/17 at 07:00 Pantoprazole (Protonix Iv) 40 mg BID IV Last administered on 05/30/17 08:43; Admin Dose 40 MG; Start 05/25/17 at 14:00 Metoclopramide HCl 10 mg 10 mg Q6H IV Last administered on 05/30/17 11:33; Admin Dose 10 MG; Start 05/25/17 at 17:30 Potassium Chloride (KCl 40 MEQ/250 ML NS) 250 ml @ 62.5 mls/hr Q4H IVPB Last administered on 05/30/17t 11:31; Admin Dose 62.5 MLS/HR; Start 05/30/17 at 11:30 ; Stop 05/30/17 at 19:29 LARA GRAVES May 30, 2017 14:23
--- NOTE | 2017-05-30 16:25 | RADRPT ---
PROCEDURE: HIDA scan CLINICAL INDICATION: 21 -year-old patient with abdominal pain. TECHNIQUE: Following the intravenous injection of approximately 7.0 mCi of Tc-99m Mebrofenin, mult iple anterior dynamic images of the abdomen along with numerous planar spot images of the abdomen we re obtained up to 90 minutes post injection. COMPARISON: No prior HIDA scans. FINDINGS: The liver is promptly visualized, demonstrates homogeneous distribution of radionuclide. There is a visualization of the common bile duct, gallbladder and gastrointestinal activity within n ormal time. IMPRESSION: No evidence to suggest the presence of common bile or cystic ducts obstruction. RPTAT: HH .Falguni Barrientos MD, Date Time Electronically viewed and signed by .Falguni Barrientos MD, on 05/30/2017 16:24 .L/
--- NOTE | 2017-05-30 17:56 | PN ---
Date/Time of Note Date/Time of Note DATE: 05/30/17 TIME: 17:36 Assessment/Plan Lines/Catheters IV Catheter Type (from [facility]): Peripheral IV Lowery in Place (from [facility]): No Assessment/Plan Chief Complaint/Hosp Course 21 year old otherwise healthy male presents with acute onset of epigastric/ upper abdominal pain x 1 day prior to admission. As per patient, he was in normal state of health until just prior to admission when he began to have sharp cramping 10/10 upper epigastric abdominal pain. no radiation. better with pain meds. not aggravated by anything. States had similar episode but more mild earlier this year and thought it was gastritis. Came to ED for evaluation and was noted to have leukocytosis, elevated LFT's and t bili, and elevated lipase. Ultrasound demonstrated large gallstone and sludge. Surgery called to evaluate for gallstone pancreatitis. CT and MRI performed and confirmed worsening acute severe pancreatitis. Patient transferred to ICU for closer monitoring and management. but has since been downgraded as his condition has improved. Problems: Assessment/Plan Initially patient denied any alcohol intake prior. Recently when asked has admitted to alcohol intake over the recent weeks and not long prior to onset of symptoms. states he does not drink often but does like to get a "buzz". When asked he states that he has had similar episodes up to 7 times prior which usually wakes him up after a night of drinking. I cannot accurately evaluate how much and how often he actually drinks because he is 21yo and not forward with answers which is understandable. He is unsure of prior events because he also believes that he sometimes has "gastritis" after eating chillies as well. In reviewing the two prior CT scans, ultrasound, and MRI he has a very severe and concerning pancreatitis. In multiple studies he was noted to have gallstones but nothing to suggest current or prior episodes of cholecystitis. Clinically he has not had prior symptoms of biliary colic/cholecystitis but has likely had prior episodes of pancreatitis. His gallbladder is otherwise normal as well is his biliary tract. I ordered a HIDA scan today which demonstrates normal biliary tract and gallbladder filling/function. In light of these findings and history he likely has been experiencing pancreatitis secondary to alcohol rather than cholelithiasis. I discussed these findings with patient, mother, and staff. At this time recommend he discontinues EtOH use rather than cholecystectomy. I gave the patient my office contact information and recommended he follow up with me as an outpatient to monitor clinical course after discharge. As for now he is slowly recovering from episode of acute severe pancreatitis. Will follow peripherally. If any questions or concerns please do not hesitate to call me at anytime [phone]. thank you. Subjective 24 Hr Interval Summary patient seen and examined at bedside. states he is feeling better. pain much improved. no n/v/f/c. states he is hungry. Constitutional: BM, flatus, improved, urine output Exam/Review of Systems Vital Signs Vitals Vital Signs Date Time Temp Pulse Resp B/P Pulse Ox O2 Delivery O2 Flow Rate FiO2 05/30/17 16:29 112 05/30/17 16:25 100.4 19 128/78 95 05/29/17 15:00 Room Air 05/29/17 04:00 2.0 05/29/17 02:54 27 Intake and Output 05/29/17 05/29/17 05/30/17 15:00 23:00 07:00 Intake Total 1250 ml 100 ml 2500 ml Balance 1250 ml 100 ml 2500 ml Exam Constitutional: alert, oriented, well developed Psych: no complaints Head: normocephalic Eyes: nl conjunctiva ENMT: nl external ears & nose Neck: non-tender, supple Respiratory: normal air movement Cardiovascular: nl pulses Gastrointestinal: nl liver, spleen, other (mild upper abdominal tenderness but no rebound or guarding), soft Musculoskeletal: nl extremities to inspection Extremities: normal pulses Neurological: [employer] II-XII intact Skin: nl turgor Results Result Diagram: 05/30/1782905/30/17829 BEN APCHECO MD May 30, 2017 17:55
[2017-05-30] MEDS: ACETAMINOPHEN 325 MG TAB PO PRN (18:12)
[2017-05-31] VITALS (12 sets, daily range): BP systolic 119–128; BP diastolic 73–81; PULSE 100–154; RESP 18–19
[2017-05-31] MEDS: DEXTROSE 5%-0.45% NACL 1,000 ML IV SCH ×5 (02:27→22:04)
[2017-05-31] MEDS: HYDROmorphONE 1 MG/ML SYG IV PRN ×5 (02:28→23:26)
[2017-05-31] MEDS: MEROPENEM 1 GM/50ML(PMX) 50 ML IVPB SCH ×3 (05:36→21:46)
[2017-05-31] MEDS: METOCLOPRAMIDE 10 MG INJ IV SCH ×4 (05:36→23:24)
[2017-05-31 08:26] LABS: ABNORMAL IP MESSAGE 1; BASOPHIL # 0.1 10^3/ul (0.0-0.1); BASOPHILS % 0.3 % (0.0-2.0); EOSINOPHILS # 0.1 10^3/ul (0.0-0.5); EOSINOPHILS % 0.6 % (0.0-7.0); HEMATOCRIT 37.7 % (42.0-52.0); LYMPHOCYTES # 1.6 10^3/ul (0.8-2.9); LYMPHOCYTES % 8.3 % (18.0-55.0); MEAN CORPUSCULAR HGB CONC 34.5 g/dl (32.0-37.0); MEAN CORPUSCULAR VOLUME 87.1 fl (72.0-104.0); MEAN PLATELET VOLUME 10.1 fl (7.4-10.4); MONOCYTES % 10.2 % (0.0-13.0); NEUTROPHIL # 14.9 10^3/ul (1.6-7.5); NEUTROPHILS % 77.3 % (30.0-74.0); PLATELET COUNT 330 10^3/UL (140-415); POSITIVE DIFF @See below; RED BLOOD COUNT 4.33 10^6/ul (4.70-6.10); RED CELL DISTRIBUTION WIDTH 13.1 % (11.5-14.5); WHITE BLOOD COUNT 19.3 10^3/ul (4.8-10.8)
[2017-05-31 08:36] LABS: CALCIUM 8.2 mg/dl (8.4-10.2); CREATININE 0.58 mg/dl (0.61-1.24); MAGNESIUM 2.3 mg/dl (1.7-2.5); PHOSPHORUS 2.8 mg/dl (2.5-4.9); POTASSIUM 3.4 mmol/L (3.5-5.1)
[2017-05-31] MEDS: PANTOPRAZOLE 40 MG INJ IV SCH ×2 (09:25→19:40)
[2017-05-31] MEDS: POTASSIUM CHLORIDE 250 ML IVPB SCH ×2 (11:12→17:00)
[2017-05-31] MEDS: HYDROmorphONE 0.5 MG/0.5 ML SYG IV PRN ×2 (11:12→11:27)
--- NOTE | 2017-05-31 12:37 | PN ---
Date/Time of Note Date/Time of Note DATE: 05/31/17 TIME: 12:35 Assessment/Plan VTE Prophylaxis VTE Prophylaxis Intervention: SCD's Lines/Catheters IV [facility] Type (from [facility]): Peripheral IV Urinary Cath still in place: No Assessment/Plan Chief Complaint/Hosp Course 1. SIRS secondary to gallstone versus alcohol pancreatitis with necrotizing pancreatitis Tolerating a clear liquid diet, IV fluids HIDA scan is negative, patient states that he drink heavily 1 week prior to onset of symptoms, unclear if pancreatitis is secondary to alcohol versus gallstone Follow-up with surgery recommendations Continue meropenem GI following Repeat CT abdomen is unchanged 2. Elevated LFTs No evidence of choledocholithiasis Hepatitis viral panel negative Monitor 3. Hypokalemia Replete Prophylaxis: SCDs Problems: Subjective 24 Hr Interval Summary Gastrointestinal: pain Exam/Review of Systems Vital Signs Vitals Vital Signs Date Time Temp Pulse Resp B/P Pulse Ox O2 Delivery O2 Flow Rate FiO2 05/31/17 12:21 98.0 113 18 121/78 98 05/29/17 15:00 Room Air 05/29/17 04:00 2.0 05/29/17 02:54 27 Intake and Output 05/30/17 05/30/17 05/31/17 15:00 23:00 07:00 Intake Total 800 ml 1220 ml 2250 ml Output Total 400 ml 1600 ml Balance 800 ml 820 ml 650 ml Exam Constitutional: alert, oriented Respiratory: clear to auscultation Cardiovascular: regular rate and rhythm Gastrointestinal: soft, tender, No distended Musculoskeletal: nl extremities to inspection Results Result Diagram: 05/31/17 0730 05/31/17 0730 Results 24 hrs Laboratory Tests Test 05/31/17 07:30 White Blood Count 19.3 H Red Blood Count 4.33 L Hemoglobin 13.0 L Hematocrit 37.7 L Mean Corpuscular Volume 87.1 Mean Corpuscular Hemoglobin 30.0 Mean Corpuscular Hemoglobin Concent 34.5 Red Cell Distribution Width 13.1 Platelet Count 330 Mean Platelet Volume 10.1 Neutrophils % 77.3 H Lymphocytes % 8.3 L Monocytes % 10.2 Eosinophils % 0.6 Basophils % 0.3 Nucleated Red Blood Cells % 0.0 Neutrophils # 14.9 H Lymphocytes # 1.6 Monocytes # 2.0 H Eosinophils # 0.1 Basophils # 0.1 Nucleated Red Blood Cells # 0.0 Sodium Level 134 L Potassium Level 3.4 L Chloride Level 97 Carbon Dioxide Level 30 Anion Gap 10 Blood Urea Nitrogen 6 L Creatinine 0.58 L Glucose Level 148 Calcium Level 8.2 L Phosphorus Level 2.8 Magnesium Level 2.3 Lipase 372 H Medications Medications Current Medications Ondansetron HCl (Zofran Inj) 4 mg Q6H PRN IV NAUSEA AND/OR VOMITING Last administered on 05/29/17 22:45; Admin Dose 4 MG; Start 05/23/17 at 23:30 Acetaminophen (Tylenol Tab) 650 mg Q6H PRN PO PAIN LEVEL 1-3 OR FEVER Last administered on 05/30/17 18:12; Admin Dose 650 MG; Start 05/23/17 at 23:30 Hydromorphone HCl (Dilaudid) 0.5 mg Q4H PRN IV SEVERE PAIN LEVEL 7-10 Last administered on 05/31/17 11:27; Admin Dose 0.5 MG; Start 05/23/17 at 23:30 Hydromorphone HCl 1 mg 1 mg Q3H PRN IV PAIN Last administered on 05/31/17 05: 39; Admin Dose 1 MG; Start 05/24/17 at 04:15 Acetaminophen 100 ml @ 400 mls/hr Q6H PRN IVPB FEVER Last administered on 05/29 16:45; Admin Dose 400 MLS/HR; Start 05/24/17 at 21:00 Dextrose/Sodium Chloride 1,000 ml @ 200 mls/hr Q5H IV Last administered on 09:25; Admin Dose 200 MLS/HR; Start 05/24/17 at 23:30 Meropenem/Sodium Chloride (Merrem 1 Gm/50 ml (Pmx)) 50 ml @ 100 mls/hr Q8 IVPB Last administered on 05/31/17 05:36; Admin Dose 100 MLS/HR; Start 05/25/17 at 07:00 Pantoprazole (Protonix Iv) 40 mg BID IV Last administered on 05/31/17 09:25; Admin Dose 40 MG; Start 05/25/17 at 14:00 Metoclopramide HCl 10 mg 10 mg Q6H IV Last administered on 05/31/17 11:12; Admin Dose 10 MG; Start 05/25/17 at 17:30 Potassium Chloride (KCl 40 MEQ/250 ML NS) 250 ml @ 62.5 mls/hr Q4H IVPB Last administered on 05/31/17 11:12; Admin Dose 62.5 MLS/HR; Start 05/31/17 at 10:30 ; Stop 05/31/17 at 18:29 Simethicone (Mylicon) 80 mg QID PRN GTB DISTENSION/GAS/BLOATING Last administered on 05/31/17 11:12; Admin Dose 80 MG; Start 05/31/17 at 11:00 LARA GRAVES May 31, 2017 12:37
--- NOTE | 2017-05-31 14:06 | PN ---
Date/Time of Note Date/Time of Note DATE: 05/31/17 TIME: 14:03 Assessment/Plan VTE Prophylaxis VTE Prophylaxis Intervention: SCD's Lines/Catheters IV Catheter Type (from [facility]): Peripheral IV Urinary Cath still in place: No Assessment/Plan Chief Complaint/Hosp Course Chief Complaint/Hosp Course Assessment: Acute severe pancreatitis poss alcoholic Cholelithiasis No evidence of choledocholithiasis Plan: Started on clear liq diet Pain management No change in CT scan from previous imaging Pt seen in collaboration with Dr. Schultz Subjective: Course reviewed with nursing staff Patient interviewed and examined All labs, imaging and other results reviewed Patient continues to improve, Pt states he has min discomfort at this time, was started on clear liquid diet, cameron well. No c/o n/v. BP wnl hr 110's, patient remains afebrile. Will recheck lipase tomorrow renal function wnl. General: well developed, well nourished, alert and oriented x3 , Skin: No lesions, no stigmata chronic liver disease, no evidence of bleeding diathesis Lymphatic: No palpable lymphadenopathy HEENT: No lesions Cardiovascular: Heart: Tachycardia Respiratory: Lungs clear to auscultation Gastrointestinal and Liver: Abdomen: Soft, moderate diffuse tenderness, moderately distended, no hernias, no masses, no organomegaly, no ascites, positive guarding, no rebound tenderness, normoactive bowel sounds. Extremities: No cyanosis, clubbing, or edema. Problems: Exam/Review of Systems Vital Signs Vitals Vital Signs Date Time Temp Pulse Resp B/P Pulse Ox O2 Delivery O2 Flow Rate FiO2 05/31/17 12:21 98.0 113 18 121/78 98 05/29/17 15:00 Room Air 05/29/17 04:00 2.0 05/29/17 02:54 27 Intake and Output 05/30/17 05/30/17 05/31/17 15:00 23:00 07:00 Intake Total 800 ml 1220 ml 2250 ml Output Total 400 ml 1600 ml Balance 800 ml 820 ml 650 ml Results Result Diagram: 05/31/17 0730 05/31/17 0730 Results 24 hrs Laboratory Tests Test 05/31/17 07:30 White Blood Count 19.3 H Red Blood Count 4.33 L Hemoglobin 13.0 L Hematocrit 37.7 L Mean Corpuscular Volume 87.1 Mean Corpuscular Hemoglobin 30.0 Mean Corpuscular Hemoglobin Concent 34.5 Red Cell Distribution Width 13.1 Platelet Count 330 Mean Platelet Volume 10.1 Neutrophils % 77.3 H Lymphocytes % 8.3 L Monocytes % 10.2 Eosinophils % 0.6 Basophils % 0.3 Nucleated Red Blood Cells % 0.0 Neutrophils # 14.9 H Lymphocytes # 1.6 Monocytes # 2.0 H Eosinophils # 0.1 Basophils # 0.1 Nucleated Red Blood Cells # 0.0 Sodium Level 134 L Potassium Level 3.4 L Chloride Level 97 Carbon Dioxide Level 30 Anion Gap 10 Blood Urea Nitrogen 6 L Creatinine 0.58 L Glucose Level 148 Calcium Level 8.2 L Phosphorus Level 2.8 Magnesium Level 2.3 Lipase 372 H Medications Medications Current Medications Ondansetron HCl (Zofran Inj) 4 mg Q6H PRN IV NAUSEA AND/OR VOMITING Last administered on 05/29/17 22:45; Admin Dose 4 MG; Start 05/23/17 at 23:30 Acetaminophen (Tylenol Tab) 650 mg Q6H PRN PO PAIN LEVEL 1-3 OR FEVER Last administered on 05/30/17 18:12; Admin Dose 650 MG; Start 05/23/17 at 23:30 Hydromorphone HCl (Dilaudid) 0.5 mg Q4H PRN IV SEVERE PAIN LEVEL 7-10 Last administered on 05/31/17 11:27; Admin Dose 0.5 MG; Start 05/23/17 at 23:30 Hydromorphone HCl 1 mg 1 mg Q3H PRN IV PAIN Last administered on 05/31/17 05: 39; Admin Dose 1 MG; Start 05/24/17 at 04:15 Acetaminophen 100 ml @ 400 mls/hr Q6H PRN IVPB FEVER Last administered on 05/29 16:45; Admin Dose 400 MLS/HR; Start 05/24/17 at 21:00 Dextrose/Sodium Chloride 1,000 ml @ 200 mls/hr Q5H IV Last administered on 09:25; Admin Dose 200 MLS/HR; Start 05/24/17 at 23:30 Meropenem/Sodium Chloride (Merrem 1 Gm/50 ml (Pmx)) 50 ml @ 100 mls/hr Q8 IVPB Last administered on 05/31/17 05:36; Admin Dose 100 MLS/HR; Start 05/25/17 at 07:00 Pantoprazole (Protonix Iv) 40 mg BID IV Last administered on 05/31/17 09:25; Admin Dose 40 MG; Start 05/25/17 at 14:00 Metoclopramide HCl 10 mg 10 mg Q6H IV Last administered on 05/31/17 11:12; Admin Dose 10 MG; Start 05/25/17 at 17:30 Potassium Chloride (KCl 40 MEQ/250 ML NS) 250 ml @ 62.5 mls/hr Q4H IVPB Last administered on 05/31/17 11:12; Admin Dose 62.5 MLS/HR; Start 05/31/17 at 10:30 ; Stop 05/31/17 at 18:29 Simethicone (Mylicon) 80 mg QID PRN GTB DISTENSION/GAS/BLOATING Last administered on 05/31/17 11:12; Admin Dose 80 MG; Start 05/31/17 at 11:00 NUPUR SHEFFIELD May 31, 2017 14:06
[2017-06-01] VITALS (12 sets, daily range): BP systolic 115–125; BP diastolic 70–82; PULSE 100–115; RESP 18–20
[2017-06-01] MEDS: DEXTROSE 5%-0.45% NACL 1,000 ML IV SCH ×5 (02:34→23:05)
[2017-06-01] MEDS: HYDROmorphONE 1 MG/ML SYG IV PRN ×6 (02:34→23:51)
[2017-06-01] MEDS: MEROPENEM 1 GM/50ML(PMX) 50 ML IVPB SCH ×3 (05:19→20:15)
[2017-06-01] MEDS: METOCLOPRAMIDE 10 MG INJ IV SCH ×4 (05:20→23:38)
[2017-06-01 07:18] LABS: BASOPHIL # 0.1 10^3/ul (0.0-0.1); BASOPHILS % 0.4 % (0.0-2.0); EOSINOPHILS # 0.2 10^3/ul (0.0-0.5); HEMATOCRIT 39.6 % (42.0-52.0); HEMOGLOBIN 13.5 g/dl (14.0-18.0); LYMPHOCYTES # 1.6 10^3/ul (0.8-2.9); LYMPHOCYTES % 9.2 % (18.0-55.0); MEAN CORPUSCULAR HEMOGLOBIN 29.7 pg (29.0-33.0); MEAN CORPUSCULAR HGB CONC 34.1 g/dl (32.0-37.0); MEAN CORPUSCULAR VOLUME 87.2 fl (72.0-104.0); MEAN PLATELET VOLUME 9.9 fl (7.4-10.4); MONOCYTE # 1.5 10^3/ul (0.3-0.9); MONOCYTES % 8.6 % (0.0-13.0); NEUTROPHIL # 13.5 10^3/ul (1.6-7.5); NEUTROPHILS % 77.9 % (30.0-74.0); PLATELET COUNT 396 10^3/UL (140-415); RED BLOOD COUNT 4.54 10^6/ul (4.70-6.10); RED CELL DISTRIBUTION WIDTH 12.8 % (11.5-14.5); WHITE BLOOD COUNT 17.4 10^3/ul (4.8-10.8)
[2017-06-01 07:38] LABS: CALCIUM 8.6 mg/dl (8.4-10.2); CREATININE 0.61 mg/dl (0.61-1.24); MAGNESIUM 2.3 mg/dl (1.7-2.5); PHOSPHORUS 3.6 mg/dl (2.5-4.9); POTASSIUM 3.8 mmol/L (3.5-5.1)
[2017-06-01] MEDS: PANTOPRAZOLE 40 MG INJ IV SCH ×2 (09:19→20:15)
--- NOTE | 2017-06-01 11:12 | PN ---
Date/Time of Note Date/Time of Note DATE: 06/01/17 TIME: 10:55 Assessment/Plan VTE Prophylaxis VTE Prophylaxis Intervention: SCD's Lines/Catheters [facility]from [facility]): Saline Lock Urinary Cath still in place: No Assessment/Plan Chief Complaint/Hosp Course Chief Complaint/Hosp Course Assessment: Acute severe pancreatitis poss alcoholic Cholelithiasis No evidence of choledocholithiasis Plan: Change diet to NPO Continue IVF Continue to monitor enzymes Encourage use of IS No change in CT scan from previous imaging Pt seen in collaboration with Dr. Schultz Subjective: Course reviewed with nursing staff Patient interviewed and examined All labs, imaging and other results reviewed Patient initially stated he was not having pain, but after further investigation into last pain meds given and speaking with the nurse, patient admitted to having slight increase in pain starting this am. Will change diet back to NPO. Continue ABX, tolerating cl liq diet well. Will continue to monitor lipase. Patient with low grade fever this am, HR remains in the 100's. Cr and BUn in normal range. IS given to patient and instructed how to use. Will continue close monitoring, General: well developed, well nourished, alert and oriented x3 , Skin: No lesions, no stigmata chronic liver disease, no evidence of bleeding diathesis Lymphatic: No palpable lymphadenopathy HEENT: No lesions Cardiovascular: Heart: Tachycardia Respiratory: Lungs clear to auscultation Gastrointestinal and Liver: Abdomen: Soft, moderate diffuse tenderness, moderately distended, no hernias, no masses, no organomegaly, no ascites, positive guarding, no rebound tenderness, normoactive bowel sounds. Extremities: No cyanosis, clubbing, or edema. Problems: Exam/Review of Systems Vital Signs Vitals Vital Signs Date Time Temp Pulse Resp B/P Pulse Ox O2 Delivery O2 Flow Rate FiO2 06/01/17 08:13 99.4 113 18 124/79 98 05/29/17 15:00 Room Air 05/29/17 04:00 2.0 05/29/17 02:54 27 Intake and Output 05/31/17 05/31/17 06/01/17 14:59 22:59 06:59 Intake Total 1000 ml 1630 ml Output Total 1200 ml 1650 ml Balance -200 ml -20 ml Results Result Diagram: 06/01/17 0654 06/01/17 0654 Results 24 hrs Laboratory Tests Test 06/01/17 06:54 White Blood Count 17.4 H Red Blood Count 4.54 L Hemoglobin 13.5 L Hematocrit 39.6 L Mean Corpuscular Volume 87.2 Mean Corpuscular Hemoglobin 29.7 Mean Corpuscular Hemoglobin Concent 34.1 Red Cell Distribution Width 12.8 Platelet Count 396 Mean Platelet Volume 9.9 Neutrophils % 77.9 H Lymphocytes % 9.2 L Monocytes % 8.6 Eosinophils % 1.0 Basophils % 0.4 Nucleated Red Blood Cells % 0.0 Neutrophils # 13.5 H Lymphocytes # 1.6 Monocytes # 1.5 H Eosinophils # 0.2 Basophils # 0.1 Nucleated Red Blood Cells # 0.0 Sodium Level 136 Potassium Level 3.8 Chloride Level 96 L Carbon Dioxide Level 31 Anion Gap 13 Blood Urea Nitrogen 7 Creatinine 0.61 Glucose Level 153 Calcium Level 8.6 Phosphorus Level 3.6 Magnesium Level 2.3 Lipase 390 H Medications Medications Current Medications Ondansetron HCl (Zofran Inj) 4 mg Q6H PRN IV NAUSEA AND/OR VOMITING Last administered on 05/29/17 22:45; Admin Dose 4 MG; Start 05/23/17 at 23:30 Acetaminophen (Tylenol Tab) 650 mg Q6H PRN PO PAIN LEVEL 1-3 OR FEVER Last administered on 05/30/17 18:12; Admin Dose 650 MG; Start 05/23/17 at 23:30 Hydromorphone HCl (Dilaudid) 0.5 mg Q4H PRN IV SEVERE PAIN LEVEL 7-10 Last administered on 05/31/17 11:27; Admin Dose 0.5 MG; Start 05/23/17 at 23:30 Hydromorphone HCl 1 mg 1 mg Q3H PRN IV PAIN Last administered on 06/01/17 05: 56; Admin Dose 1 MG; Start 05/24/17 at 04:15 Acetaminophen 100 ml @ 400 mls/hr Q6H PRN IVPB FEVER Last administered on 05/29 16:45; Admin Dose 400 MLS/HR; Start 05/24/17 at 21:00 Dextrose/Sodium Chloride 1,000 ml @ 200 mls/hr Q5H IV Last administered on 09:20; Admin Dose 200 MLS/HR; Start 05/24/17 at 23:30 Meropenem/Sodium Chloride (Merrem 1 Gm/50 ml (Pmx)) 50 ml @ 100 mls/hr Q8 IVPB Last administered on 06/01/17 05:19; Admin Dose 100 MLS/HR; Start 05/25/17 at 07:00 Pantoprazole (Protonix Iv) 40 mg BID IV Last administered on 06/01/17 09:19; Admin Dose 40 MG; Start 05/25/17 at 14:00 Metoclopramide HCl (Reglan) 10 mg Q6H IV Last administered on 06/01/17 05:20 ; Admin Dose 10 MG; Start 05/25/17 at 17:30 Simethicone (Mylicon) 80 mg QID PRN GTB DISTENSION/GAS/BLOATING Last administered on 05/31/17 15:22; Admin Dose 80 MG; Start 05/31/17 at 11:00 NUPUR SHEFFIELD Jun 01, 2017 11:12
--- NOTE | 2017-06-01 19:09 | PN ---
Date/Time of Note Date/Time of Note DATE: 06/01/17 TIME: 19:08 Assessment/Plan VTE Prophylaxis VTE Prophylaxis Intervention: SCD's Lines/Catheters IV [facility]ter Type (from [facility]): Saline Lock Urinary Cath still in place: No Assessment/Plan Chief Complaint/Hosp Course 1. SIRS secondary to gallstone versus alcohol pancreatitis with necrotizing pancreatitis Patient is not tolerating a clear liquid diet and has been switched back to n.p.o. IV fluids HIDA scan is negative, patient states that he drank heavily 1 week prior to onset of symptoms, unclear if pancreatitis is secondary to alcohol versus gallstone Follow-up with surgery recommendations Continue meropenem GI following Repeat CT abdomen is unchanged 2. Elevated LFTs No evidence of choledocholithiasis Hepatitis viral panel negative Monitor 3. Hypokalemia Replete Prophylaxis: SCDs Problems: Subjective 24 Hr Interval Summary Gastrointestinal: pain Exam/Review of Systems Vital Signs Vitals Vital Signs Date Time Temp Pulse Resp B/P Pulse Ox O2 Delivery O2 Flow Rate FiO2 06/01/17 16:53 98.0 87 18 125/70 98 05/29/17 15:00 Room Air 05/29/17 04:00 2.0 05/29/17 02:54 27 Intake and Output 05/31/17 05/31/17 06/01/17 15:00 23:00 07:00 Intake Total 1650 ml 980 ml Output Total 1200 ml 1650 ml Balance 450 ml -670 ml Exam Constitutional: alert Respiratory: clear to auscultation Cardiovascular: regular rate and rhythm Gastrointestinal: soft, tender, No distended Musculoskeletal: nl extremities to inspection Results Result Diagram: 06/01/17 0654 06/01/17 0654 Results 24 hrs Laboratory Tests Test 06/01/17 06:54 White Blood Count 17.4 H Red Blood Count 4.54 L Hemoglobin 13.5 L Hematocrit 39.6 L Mean Corpuscular Volume 87.2 Mean Corpuscular Hemoglobin 29.7 Mean Corpuscular Hemoglobin Concent 34.1 Red Cell Distribution Width 12.8 Platelet Count 396 Mean Platelet Volume 9.9 Neutrophils % 77.9 H Lymphocytes % 9.2 L Monocytes % 8.6 Eosinophils % 1.0 Basophils % 0.4 Nucleated Red Blood Cells % 0.0 Neutrophils # 13.5 H Lymphocytes # 1.6 Monocytes # 1.5 H Eosinophils # 0.2 Basophils # 0.1 Nucleated Red Blood Cells # 0.0 Sodium Level 136 Potassium Level 3.8 Chloride Level 96 L Carbon Dioxide Level 31 Anion Gap 13 Blood Urea Nitrogen 7 Creatinine 0.61 Glucose Level 153 Calcium Level 8.6 Phosphorus Level 3.6 Magnesium Level 2.3 Lipase 390 H Medications Medications Current Medications Ondansetron HCl (Zofran Inj) 4 mg Q6H PRN IV NAUSEA AND/OR VOMITING Last administered on 05/29/17 22:45; Admin Dose 4 MG; Start 05/23/17 at 23:30 Acetaminophen (Tylenol Tab) 650 mg Q6H PRN PO PAIN LEVEL 1-3 OR FEVER Last administered on 05/30/17 18:12; Admin Dose 650 MG; Start 05/23/17 at 23:30 Hydromorphone HCl (Dilaudid) 0.5 mg Q4H PRN IV SEVERE PAIN LEVEL 7-10 Last administered on 05/31/17 11:27; Admin Dose 0.5 MG; Start 05/23/17 at 23:30 Hydromorphone HCl 1 mg 1 mg Q3H PRN IV PAIN Last administered on 06/01/17 16: 36; Admin Dose 1 MG; Start 05/24/17 at 04:15 Acetaminophen 100 ml @ 400 mls/hr Q6H PRN IVPB FEVER Last administered on 05/29 16:45; Admin Dose 400 MLS/HR; Start 05/24/17 at 21:00 Dextrose/Sodium Chloride 1,000 ml @ 200 mls/hr Q5H IV Last administered on 18:21; Admin Dose 200 MLS/HR; Start 05/24/17 at 23:30 Meropenem/Sodium Chloride (Merrem 1 Gm/50 ml (Pmx)) 50 ml @ 100 mls/hr Q8 IVPB Last administered on 06/01/17 13:14; Admin Dose 100 MLS/HR; Start 05/25/17 at 07:00 Pantoprazole (Protonix Iv) 40 mg BID IV Last administered on 06/01/17 09:19; Admin Dose 40 MG; Start 05/25/17 at 14:00 Metoclopramide HCl (Reglan) 10 mg Q6H IV Last administered on 06/01/17 16:35 ; Admin Dose 10 MG; Start 05/25/17 at 17:30 Simethicone (Mylicon) 80 mg QID PRN GTB DISTENSION/GAS/BLOATING Last administered on 05/31/17t 15:22; Admin Dose 80 MG; Start 05/31/17 at 11:00 LARA GRAVES Jun 01, 2017 19:09
--- NOTE | 2017-06-01 19:27 | PN ---
Date/Time of Note Date/Time of Note DATE: 06/01/17 TIME: 19:19 Assessment/Plan Lines/Catheters IV Catheter Type (from [facility]): Saline Lock [place] in Place (from [facility]): No Assessment/Plan Chief Complaint/Hosp Course 21 year old otherwise healthy male presents with acute onset of epigastric/ upper abdominal pain x 1 day prior to admission. As per patient, he was in normal state of health until just prior to admission when he began to have sharp cramping 10/10 upper epigastric abdominal pain. no radiation. better with pain meds. not aggravated by anything. States had similar episode but more mild earlier this year and thought it was gastritis. Came to ED for evaluation and was noted to have leukocytosis, elevated LFT's and t bili, and elevated lipase. Ultrasound demonstrated large gallstone and sludge. Surgery called to evaluate for gallstone pancreatitis. CT and MRI performed and confirmed worsening acute severe pancreatitis. Patient transferred to ICU for closer monitoring and management. but has since been downgraded as his condition has improved. Problems: Assessment/Plan Overall improving. leukocytosis improved. fever curve improved. abdominal exam improved. If mild pancreatitis secondary to gallstones would recommend cholecystectomy prior to discharge. BUT given episode of acute severe pancreatitis with SIRS and CT findings of peripancreatic fluid would not recommend surgery at this time. He is improving and recovering. As noted before pancreatitis could be secondary to gallstones or EtOH for him. Recommend medical management of pancreatitis. once fully resolved okay to discharge from surgical standpoint. He can follow up with me as an outpatient to discuss cholecystectomy in 6 weeks after resolution of acute severe pancreatitis. okay to trial diet again when ready okay to shower should be ambulatory most of the day. activity as tolerated. Thank you for this consultation. will follow peripherally and available as needed. Please do not hesitate to call or page me at anytime with questions or concerns [phone] DOROTHY Pacheco MD Surgery Subjective 24 Hr Interval Summary Constitutional: improved, urine output Additional Comments pt seen and examined at bedside. no acute events. states he feels better today. no n/v/f/c. started on liquid diet and felt some discomfort which resolved soon after. mild elevation in lipase with oral intake. overall states he feels much better but does feel somewhat deconditioned. Exam/Review of Systems Vital Signs Vitals Vital Signs Date Time Temp Pulse Resp B/P Pulse Ox O2 Delivery O2 Flow Rate FiO2 06/01/17 16:53 98.0 87 18 125/70 98 05/29/17 15:00 Room Air 05/29/17 04:00 2.0 05/29/17 02:54 27 Intake and Output 05/31/17 05/31/17 06/01/17 15:00 23:00 07:00 Intake Total 1650 ml 980 ml Output Total 1200 ml 1650 ml Balance 450 ml -670 ml Exam Constitutional: alert, oriented Psych: no complaints Head: atraumatic, normocephalic Eyes: EOMI, nl conjunctiva, nl lids ENMT: nl external ears & nose, nl lips & teeth Neck: supple Respiratory: normal air movement Cardiovascular: nl pulses Gastrointestinal: nl liver, spleen, non-tender, other (some left sided lateral rib discomfort but no abdominal discomfort. ), soft Musculoskeletal: nl extremities to inspection Extremities: normal pulses Neurological: [employer] II-XII intact Lymph: nl lymph nodes Results Result Diagram: 06/01/17 0654 06/01/17 0654 BEN PACHECO MD Jun 01, 2017 19:27
[2017-06-02] VITALS (11 sets, daily range): BP systolic 119–125; BP diastolic 75–81; PULSE 100–112; RESP 18–20
[2017-06-02] MEDS: HYDROmorphONE 1 MG/ML SYG IV PRN ×6 (03:33→22:09)
[2017-06-02] MEDS: DEXTROSE 5%-0.45% NACL 1,000 ML IV SCH ×5 (03:34→23:40)
[2017-06-02] MEDS: METOCLOPRAMIDE 10 MG INJ IV SCH ×4 (05:28→23:39)
[2017-06-02] MEDS: MEROPENEM 1 GM/50ML(PMX) 50 ML IVPB SCH ×3 (05:28→22:09)
[2017-06-02 08:23] LABS: BASOPHIL # 0.1 10^3/ul (0.0-0.1); BASOPHILS % 0.3 % (0.0-2.0); EOSINOPHILS # 0.2 10^3/ul (0.0-0.5); EOSINOPHILS % 1.3 % (0.0-7.0); HEMATOCRIT 38.3 % (42.0-52.0); HEMOGLOBIN 12.9 g/dl (14.0-18.0); LYMPHOCYTES # 2.1 10^3/ul (0.8-2.9); LYMPHOCYTES % 13.1 % (18.0-55.0); MEAN CORPUSCULAR HEMOGLOBIN 29.7 pg (29.0-33.0); MEAN CORPUSCULAR HGB CONC 33.7 g/dl (32.0-37.0); MEAN PLATELET VOLUME 9.9 fl (7.4-10.4); MONOCYTE # 1.5 10^3/ul (0.3-0.9); MONOCYTES % 9.5 % (0.0-13.0); NEUTROPHIL # 11.5 10^3/ul (1.6-7.5); NEUTROPHILS % 73.4 % (30.0-74.0); PLATELET COUNT 397 10^3/UL (140-415); RED BLOOD COUNT 4.35 10^6/ul (4.70-6.10); RED CELL DISTRIBUTION WIDTH 12.9 % (11.5-14.5); WHITE BLOOD COUNT 15.7 10^3/ul (4.8-10.8)
[2017-06-02 09:08] LABS: CALCIUM 8.2 mg/dl (8.4-10.2); CREATININE 0.54 mg/dl (0.61-1.24); MAGNESIUM 2.1 mg/dl (1.7-2.5); PHOSPHORUS 3.8 mg/dl (2.5-4.9); POTASSIUM 4.6 mmol/L (3.5-5.1)
[2017-06-02] MEDS: PANTOPRAZOLE 40 MG INJ IV SCH ×2 (09:26→22:08)
--- NOTE | 2017-06-02 09:52 | PN ---
Date/Time of Note Date/Time of Note DATE: 06/02/17 TIME: 09:49 Assessment/Plan VTE Prophylaxis VTE Prophylaxis Intervention: SCD's Lines/Catheters IV Catheter Type (from [facility]): Saline Lock Urinary Cath still in place: No Assessment/Plan Chief Complaint/Hosp Course Chief Complaint/Hosp Course Assessment: Acute severe pancreatitis poss alcoholic Cholelithiasis No evidence of choledocholithiasis Leucocytosis/trending down Plan: Continue NPO status Continue IVF Continue to monitor enzymes Encourage use of IS pain management Will continue periodic imaging - plan for ct abd/pelvis with contrast 06/03 Pt seen in collaboration with Dr. Schultz Subjective: Course reviewed with nursing staff Patient interviewed and examined All labs, imaging and other results reviewed No over night events, pt continues to c/o of LUQ abd pain, encourage use of IS, leukocytosis trending down, Lipase is now trending up- will maintain NPO status. Continue close observation. Patient afebrile, HR 100's, bp stable. General: well developed, well nourished, alert and oriented x3 , Skin: No lesions, no stigmata chronic liver disease, no evidence of bleeding diathesis Lymphatic: No palpable lymphadenopathy HEENT: No lesions Cardiovascular: Heart: Tachycardia Respiratory: Lungs clear to auscultation Gastrointestinal and Liver: Abdomen: Soft, moderate diffuse tenderness, moderately distended, no hernias, no masses, no organomegaly, no ascites, positive guarding, no rebound tenderness, normoactive bowel sounds. Extremities: No cyanosis, clubbing, or edema. Problems: Exam/Review of Systems Vital Signs Vitals Vital Signs Date Time Temp Pulse Resp B/P Pulse Ox O2 Delivery O2 Flow Rate FiO2 06/02/17 08:14 100 06/02/17 08:03 97.8 18 125/78 96 05/29/17 15:00 Room Air Intake and Output 06/01/17 06/01/17 06/02/17 15:00 23:00 07:00 Intake Total 1600 ml 1500 ml Output Total 2000 ml 1400 ml Balance -400 ml 100 ml Results Result Diagram: 06/02/17 0706/02/17 0721 Results 24 hrs Laboratory Tests Test 06/02/17 07:21 White Blood Count 15.7 H Red Blood Count 4.35 L Hemoglobin 12.9 L Hematocrit 38.3 L Mean Corpuscular Volume 88.0 Mean Corpuscular Hemoglobin 29.7 Mean Corpuscular Hemoglobin Concent 33.7 Red Cell Distribution Width 12.9 Platelet Count 397 Mean Platelet Volume 9.9 Neutrophils % 73.4 Lymphocytes % 13.1 L Monocytes % 9.5 Eosinophils % 1.3 Basophils % 0.3 Nucleated Red Blood Cells % 0.0 Neutrophils # 11.5 H Lymphocytes # 2.1 Monocytes # 1.5 H Eosinophils # 0.2 Basophils # 0.1 Nucleated Red Blood Cells # 0.0 Sodium Level 133 L Potassium Level 4.6 Chloride Level 95 L Carbon Dioxide Level 30 Anion Gap 13 Blood Urea Nitrogen 5 L Creatinine 0.54 L Glucose Level 154 Calcium Level 8.2 L Phosphorus Level 3.8 Magnesium Level 2.1 Lipase 428 H Medications Medications Current Medications Ondansetron HCl (Zofran Inj) 4 mg Q6H PRN IV NAUSEA AND/OR VOMITING Last administered on 05/29/17 22:45; Admin Dose 4 MG; Start 05/23/17 at 23:30 Acetaminophen (Tylenol Tab) 650 mg Q6H PRN PO PAIN LEVEL 1-3 OR FEVER Last administered on 05/30/17 18:12; Admin Dose 650 MG; Start 05/23/17 at 23:30 Hydromorphone HCl (Dilaudid) 0.5 mg Q4H PRN IV SEVERE PAIN LEVEL 7-10 Last administered on 05/31/17 11:27; Admin Dose 0.5 MG; Start 05/23/17 at 23:30 Hydromorphone HCl 1 mg 1 mg Q3H PRN IV PAIN Last administered on 06/02/17 07: 47; Admin Dose 1 MG; Start 05/24/17 at 04:15 Acetaminophen 100 ml @ 400 mls/hr Q6H PRN IVPB FEVER Last administered on 05/29 16:45; Admin Dose 400 MLS/HR; Start 05/24/17 at 21:00 Dextrose/Sodium Chloride 1,000 ml @ 200 mls/hr Q5H IV Last administered on 03:34; Admin Dose 200 MLS/HR; Start 05/24/17 at 23:30 Meropenem/Sodium Chloride (Merrem 1 Gm/50 ml (Pmx)) 50 ml @ 100 mls/hr Q8 IVPB Last administered on 06/02/17 05:28; Admin Dose 100 MLS/HR; Start 05/25/17 at 07:00 Pantoprazole (Protonix Iv) 40 mg BID IV Last administered on 06/02/17 09:26; Admin Dose 40 MG; Start 05/25/17 at 14:00 Metoclopramide HCl (Reglan) 10 mg Q6H IV Last administered on 06/02/17 05:28 ; Admin Dose 10 MG; Start 05/25/17 at 17:30 Simethicone (Mylicon) 80 mg QID PRN GTB DISTENSION/GAS/BLOATING Last administered on 05/31/17 15:22; Admin Dose 80 MG; Start 05/31/17 at 11:00 NUPUR SHEFFIELD Jun 02, 2017 09:52
[2017-06-02] MEDS ORDERED: BARIUM SULF 2% 450 ML BTL (BERRY SMOOTHIE) PO ONE (13:00)
--- NOTE | 2017-06-02 13:01 | PN ---
Date/Time of Note Date/Time of Note DATE: 06/02/17 TIME: 12:59 Assessment/Plan VTE Prophylaxis VTE Prophylaxis Intervention: LMWH Lines/Catheters IV Catheter Type (from [facility]): Peripheral IV Urinary Cath still in place: No Assessment/Plan Chief Complaint/Hosp Course 21 yo male wiht pancreatitis of unclear etiology 1. SIRS secondary to gallstone versus alcohol pancreatitis with necrotizing pancreatitis - Will try clear liquids again today - IV fluids - HIDA scan is negative, patient states that he drank "2 beers and a shot" 1 week prior to onset of symptoms, unclear if pancreatitis is secondary to alcohol versus gallstone - Follow-up with surgery recommendations - Continue meropenem course - GI following - Repeat CT abdomen is unchanged 2. Elevated LFTs No evidence of choledocholithiasis Hepatitis viral panel negative Monitor 3. Hypokalemia Replete Prophylaxis: SCDs Problems: Subjective 24 Hr Interval Summary Free Text/Dictation Had mild discomfort with eating jello yesterday Otherwise seems to be feeling beter Exam/Review of Systems Vital Signs Vitals Vital Signs Date Time Temp Pulse Resp B/P Pulse Ox O2 Delivery O2 Flow Rate FiO2 06/02/17 12:03 104 06/02/17 11:38 98.4 19 123/81 97 05/29/17 15:00 Room Air Intake and Output 06/01/17 06/01/17 06/02/17 15:00 23:00 07:00 Intake Total 1600 ml 1500 ml Output Total 2000 ml 1400 ml Balance -400 ml 100 ml Exam Constitutional: alert, oriented, well developed Psych: nl mood/affect, no complaints Head: atraumatic, normocephalic Eyes: EOMI, PERRL, nl conjunctiva, nl lids, nl sclera ENMT: nl external ears & nose, nl lips & teeth, nl nasal mucosa & septum Neck: non-tender, supple Respiratory: clear to auscultation, normal air movement Cardiovascular: nl pulses, regular rate and rhythm Gastrointestinal: nl liver, spleen, non-tender, soft Musculoskeletal: nl extremities to inspection, nl gait and stance Extremities: normal pulses Neurological: GEOGRAPHIC INFORMATION SYSTEMS MANAGER II-XII intact, nl mental status, nl speech, nl strength Skin: nl turgor, No rash or lesions Lymph: nl lymph nodes Results Result Diagram: 06/02/17 0721 06/02/17 0721 Results 24 hrs Laboratory Tests Test 06/02/17 07:21 White Blood Count 15.7 H Red Blood Count 4.35 L Hemoglobin 12.9 L Hematocrit 38.3 L Mean Corpuscular Volume 88.0 Mean Corpuscular Hemoglobin 29.7 Mean Corpuscular Hemoglobin Concent 33.7 Red Cell Distribution Width 12.9 Platelet Count 397 Mean Platelet Volume 9.9 Neutrophils % 73.4 Lymphocytes % 13.1 L Monocytes % 9.5 Eosinophils % 1.3 Basophils % 0.3 Nucleated Red Blood Cells % 0.0 Neutrophils # 11.5 H Lymphocytes # 2.1 Monocytes # 1.5 H Eosinophils # 0.2 Basophils # 0.1 Nucleated Red Blood Cells # 0.0 Sodium Level 133 L Potassium Level 4.6 Chloride Level 95 L Carbon Dioxide Level 30 Anion Gap 13 Blood Urea Nitrogen 5 L Creatinine 0.54 L Glucose Level 154 Calcium Level 8.2 L Phosphorus Level 3.8 Magnesium Level 2.1 Lipase 428 H Medications Medications Current Medications Ondansetron HCl (Zofran Inj) 4 mg Q6H PRN IV NAUSEA AND/OR VOMITING Last administered on 05/29/17 22:45; Admin Dose 4 MG; Start 05/23/17 at 23:30 Acetaminophen (Tylenol Tab) 650 mg Q6H PRN PO PAIN LEVEL 1-3 OR FEVER Last administered on 05/30/17 18:12; Admin Dose 650 MG; Start 05/23/17 at 23:30 Hydromorphone HCl (Dilaudid) 0.5 mg Q4H PRN IV SEVERE PAIN LEVEL 7-10 Last administered on 05/31/17 11:27; Admin Dose 0.5 MG; Start 05/23/17 at 23:30 Hydromorphone HCl 1 mg 1 mg Q3H PRN IV PAIN Last administered on 06/02/17 11: 53; Admin Dose 1 MG; Start 05/24/17 at 04:15 Acetaminophen 100 ml @ 400 mls/hr Q6H PRN IVPB FEVER Last administered on 05/29 16:45; Admin Dose 400 MLS/HR; Start 05/24/17 at 21:00 Dextrose/Sodium Chloride 1,000 ml @ 200 mls/hr Q5H IV Last administered on 10:42; Admin Dose 200 MLS/HR; Start 05/24/17 at 23:30 Meropenem/Sodium Chloride (Merrem 1 Gm/50 ml (Pmx)) 50 ml @ 100 mls/hr Q8 IVPB Last administered on 06/02/17 05:28; Admin Dose 100 MLS/HR; Start 05/25/17 at 07:00 Pantoprazole (Protonix Iv) 40 mg BID IV Last administered on 06/02/17 09:26; Admin Dose 40 MG; Start 05/25/17 at 14:00 Metoclopramide HCl (Reglan) 10 mg Q6H IV Last administered on 06/02/17 11:53 ; Admin Dose 10 MG; Start 05/25/17 at 17:30 Simethicone (Mylicon) 80 mg QID PRN GTB DISTENSION/GAS/BLOATING Last administered on 05/31/17 15:22; Admin Dose 80 MG; Start 05/31/17 at 11:00 TIP STILES MD Jun 02, 2017 13:01
[2017-06-02] MEDS: ONDANSETRON 4 MG INJ IV PRN (13:53)
[2017-06-03] VITALS (12 sets, daily range): BP systolic 114–130; BP diastolic 72–79; PULSE 95–114; RESP 18–20
[2017-06-03] MEDS: HYDROmorphONE 1 MG/ML SYG IV PRN ×5 (01:30→18:38)
[2017-06-03] MEDS: DEXTROSE 5%-0.45% NACL 1,000 ML IV SCH ×5 (04:44→18:38)
[2017-06-03] MEDS: METOCLOPRAMIDE 10 MG INJ IV SCH ×4 (04:44→22:17)
[2017-06-03] MEDS: MEROPENEM 1 GM/50ML(PMX) 50 ML IVPB SCH ×3 (05:41→22:16)
[2017-06-03 07:34] LABS: ABNORMAL IP MESSAGE 1; BASOPHILS % 0.2 % (0.0-2.0); EOSINOPHILS # 0.2 10^3/ul (0.0-0.5); EOSINOPHILS % 1.4 % (0.0-7.0); HEMATOCRIT 37.7 % (42.0-52.0); HEMOGLOBIN 12.8 g/dl (14.0-18.0); LYMPHOCYTES # 2.2 10^3/ul (0.8-2.9); LYMPHOCYTES % 14.9 % (18.0-55.0); MEAN CORPUSCULAR VOLUME 88.3 fl (72.0-104.0); MEAN PLATELET VOLUME 9.8 fl (7.4-10.4); MONOCYTE # 1.5 10^3/ul (0.3-0.9); MONOCYTES % 10.3 % (0.0-13.0); NEUTROPHIL # 10.5 10^3/ul (1.6-7.5); NEUTROPHILS % 70.7 % (30.0-74.0); PLATELET COUNT 475 10^3/UL (140-415); POSITIVE DIFF @See below; RED BLOOD COUNT 4.27 10^6/ul (4.70-6.10); WHITE BLOOD COUNT 14.9 10^3/ul (4.8-10.8)
[2017-06-03 08:03] LABS: ALBUMIN/GLOBULIN RATIO 0.73; BILIRUBIN,INDIRECT 1.2 mg/dl (0-1.1); BILIRUBIN,TOTAL 1.2 mg/dl (0.2-1.3); CALCIUM 8.9 mg/dl (8.4-10.2); CREATININE 0.63 mg/dl (0.61-1.24); TOTAL PROTEIN 7.1 g/dl (6.1-8.1)
[2017-06-03] MEDS: PANTOPRAZOLE 40 MG INJ IV SCH ×2 (08:43→21:27)
[2017-06-03] MEDS ORDERED: IOHEXOL 300MG/ML 150 ML BTL ONE (09:12)
[2017-06-03] MEDS ORDERED: SOD CHLORIDE 0.9% 100 ML ONE (09:12)
--- NOTE | 2017-06-03 10:23 | PN ---
Date/Time of Note Date/Time of Note DATE: 06/03/17 TIME: 10:20 Assessment/Plan VTE Prophylaxis VTE Prophylaxis Intervention: SCD's Lines/Catheters IV Catheter Type (from Nrs): Peripheral IV Urinary Cath still in place: No Assessment/Plan Chief Complaint/Hosp Course Chief Complaint/Hosp Course Assessment: Acute severe pancreatitis poss alcoholic Cholelithiasis No evidence of choledocholithiasis Leucocytosis/trending down Plan: Continue NPO status Continue IVF Will check lipase and CMP tomorrow Encourage use of IS pain management CT abd/pelvis with contrast today Pt seen in collaboration with Dr. Schultz Subjective: Course reviewed with nursing staff Patient interviewed and examined All labs, imaging and other results reviewed Pt in bed, family at bedside, LUQ pain remains unchanged. AST/ALt trending up, WBC trending down, plan for CT abd/pelvis today. No fevers, HR 90-110's, renal function intact. Will continue CLOSE observation. General: well developed, well nourished, alert and oriented x3 , Skin: No lesions, no stigmata chronic liver disease, no evidence of bleeding diathesis Lymphatic: No palpable lymphadenopathy HEENT: No lesions Cardiovascular: Heart: Tachycardia Respiratory: Lungs clear to auscultation Gastrointestinal and Liver: Abdomen: Soft, moderate diffuse tenderness, moderately distended, no hernias, no masses, no organomegaly, no ascites, positive guarding, no rebound tenderness, normoactive bowel sounds. Extremities: No cyanosis, clubbing, or edema. Problems: Exam/Review of Systems Vital Signs Vitals Vital Signs Date Time Temp Pulse Resp B/P Pulse Ox O2 Delivery O2 Flow Rate FiO2 06/03/17 08:07 99 06/03/17 07:43 97.6 19 121/75 96 Intake and Output 06/02/17 06/02/17 06/03/17 15:00 23:00 07:00 Intake Total 2850 ml 1100 ml Output Total 3500 ml Balance -650 ml 1100 ml Results Result Diagram: 06/03/17 0649 06/03/17 0649 Results 24 hrs Laboratory Tests Test 06/03/17 06:49 White Blood Count 14.9 H Red Blood Count 4.27 L Hemoglobin 12.8 L Hematocrit 37.7 L Mean Corpuscular Volume 88.3 Mean Corpuscular Hemoglobin 30.0 Mean Corpuscular Hemoglobin Concent 34.0 Red Cell Distribution Width 13.0 Platelet Count 475 H Mean Platelet Volume 9.8 Neutrophils % 70.7 Lymphocytes % 14.9 L Monocytes % 10.3 Eosinophils % 1.4 Basophils % 0.2 Nucleated Red Blood Cells % 0.0 Neutrophils # 10.5 H Lymphocytes # 2.2 Monocytes # 1.5 H Eosinophils # 0.2 Basophils # 0.0 Nucleated Red Blood Cells # 0.0 Sodium Level 134 L Potassium Level 4.0 Chloride Level 95 L Carbon Dioxide Level 31 Anion Gap 12 Blood Urea Nitrogen 6 L Creatinine 0.63 Glucose Level 142 Calcium Level 8.9 Total Bilirubin 1.2 Direct Bilirubin 0.00 Indirect Bilirubin 1.2 H Aspartate Amino Transf (AST/SGOT) 79 H Alanine Aminotransferase (ALT/SGPT) 200 H Alkaline Phosphatase 123 H Total Protein 7.1 Albumin 3.0 L Globulin 4.10 H Albumin/Globulin Ratio 0.73 Medications Medications Current Medications Ondansetron HCl (Zofran Inj) 4 mg Q6H PRN IV NAUSEA AND/OR VOMITING Last administered on 06/02/17 13:53; Admin Dose 4 MG; Start 05/23/17 at 23:30 Acetaminophen (Tylenol Tab) 650 mg Q6H PRN PO PAIN LEVEL 1-3 OR FEVER Last administered on 05/30/17 18:12; Admin Dose 650 MG; Start 05/23/17 at 23:30 Hydromorphone HCl (Dilaudid) 0.5 mg Q4H PRN IV SEVERE PAIN LEVEL 7-10 Last administered on 05/31/17 11:27; Admin Dose 0.5 MG; Start 05/23/17 at 23:30 Hydromorphone HCl 1 mg 1 mg Q3H PRN IV PAIN Last administered on 06/03/17 04: 43; Admin Dose 1 MG; Start 05/24/17 at 04:15 Acetaminophen 100 ml @ 400 mls/hr Q6H PRN IVPB FEVER Last administered on 05/29 16:45; Admin Dose 400 MLS/HR; Start 05/24/17 at 21:00 Dextrose/Sodium Chloride 1,000 ml @ 200 mls/hr Q5H IV Last administered on 04:44; Admin Dose 200 MLS/HR; Start 05/24/17 at 23:30 Meropenem/Sodium Chloride (Merrem 1 Gm/50 ml (Pmx)) 50 ml @ 100 mls/hr Q8 IVPB Last administered on 06/03/17 05:41; Admin Dose 100 MLS/HR; Start 05/25/17 at 07:00 Pantoprazole (Protonix Iv) 40 mg BID IV Last administered on 06/03/17 08:43; Admin Dose 40 MG; Start 05/25/17 at 14:00 Metoclopramide HCl (Reglan) 10 mg Q6H IV Last administered on 06/03/17 04:44 ; Admin Dose 10 MG; Start 05/25/17 at 17:30 Simethicone (Mylicon) 80 mg QID PRN GTB DISTENSION/GAS/BLOATING Last administered on 05/31/17 15:22; Admin Dose 80 MG; Start 05/31/17 at 11:00 NUPUR SHEFFIELD Jun 03, 2017 10:23
--- NOTE | 2017-06-03 11:24 | RADRPT ---
PROCEDURE: CT ABDOMEN AND PELVIS WITH IV CONTRAST. CLINICAL INDICATION: Abdominal pain. History of gallstone pancreatitis. Evaluate for pseudocysts. TECHNIQUE: CT scan of the abdomen and pelvis without contrast was performed on a multidetector hig h-resolution CT scanner following the use of IV contrast. 90 cc Omnipaque-300 was administered. [place] nal and sagittal reformatted images were obtained from the axial source images. Images were reviewed on a high-resolution PACS workstation. The total exam CTDI equals 10.3 mGy and the total exam DLP e quals 660.3 mGy-cm. One or more of the following dose reduction techniques were used: Automated exposure control. Adjustment of the mA and/or kV according to patient size. Use of iterative reconstruction technique. DICOM images are available. COMPARISON: CT 05/28/2017 FINDINGS: CT abdomen: Bilateral lower lobe consolidation and pleural effusions are noted, left greater right. Likely compr essive atelectasis. Heart size within limits. There is no significant pericardial effusion. Hepatic morphology is within limits. No gross masses or lesions. Cholesterol stones are noted within the gallbladder. No evidence of intrahepatic or extrahepatic biliary dilatation. The spleen is unremarkable. There is now loculation of a large fluid collection anterior to the pain is with septations and distinct borders, measuring 14.7 x 4.0 x 6.6 cm. Findings are most consisten t with a pseudocyst. There is a component that extends the left paracolic gutter. There is nonvisual ization of the head and body of the pancreas, consistent with underlying necrosis. Both adrenal glands are within normal limits. Both kidneys are and normal anatomic position. No evidence of obstruction or hydronephrosis. The visualized GI tract demonstrate normal caliber loops of small large bowel. No evidence of bowel obstruction. The appendix is within normal limits. The aorta is unremarkable. There are several retroperitoneal lymph nodes. CT pelvis: The bladder is within normal limits. Prostate is normal size. The rectosigmoid colon is within kay l limits. Small amount of free fluid is noted within the pelvis. Findings are improved since prior e xam. The prostate gland is normal size. The visualized osseous structures appears to be within normal limits. IMPRESSION: 1. Previously noted peripancreatic fluid appears to be loculated with distinct enhancing borders, no w measuring 14.7 x 4.0 x 6.6 cm, most consistent with large pseudocyst. There is a component that ex tends to the left paracolic gutter. 2. Nonvisualization of the body and head of the pancreas, consistent with underlying necrotizing villaseñor creatitis. 3. No evidence of bowel obstruction. The appendix is within normal limits. 4. Cholelithiasis, with likely cholesterol stones. No gross CT evidence of inflammatory changes. 5. Mild pelvic ascites, improved since prior exam. 6. Unchanged bilateral pleural effusions and underlying compressive atelectasis. RPTAT: AARR Physician Delfin Date Time Electronically viewed and signed by Physician Delfin on 06/03/2017 11:23 ROBERT/
--- NOTE | 2017-06-03 15:52 | PN ---
Date/Time of Note Date/Time of Note DATE: 06/03/17 TIME: 15:47 Assessment/Plan VTE Prophylaxis VTE Prophylaxis Intervention: LMWH Lines/Catheters IV [facility]ter Type (from [facility]): Peripheral IV Urinary Cath still in place: No Assessment/Plan Chief Complaint/Hosp Course 21 yo male with necrotizing pancreatitis of unclear etiology 1. SIRS secondary to gallstone versus alcohol pancreatitis with necrotizing pancreatitis - Tolerating clear, advance to full liquids - IV fluids - HIDA scan is negative, patient states that he drank "2 beers and a shot" 1 week prior to onset of symptoms, unclear if pancreatitis is secondary to alcohol versus passed gallstone - Follow-up with surgery recommendations - Continue meropenem course - GI following - Managemetn of pseudocyst per GI/surgery 2. Elevated LFTs - Hepatitis viral panel negative - Monitor 3. Hypokalemia Replete Prophylaxis: SCDs Problems: Subjective 24 Hr Interval Summary Free Text/Dictation Symptomatically improved, no abd pain Tolerating clear diet, wants to advance repeat CT shows "Previously noted peripancreatic fluid appears to be loculated with distinct enhancing borders, now measuring 14.7 x 4.0 x 6.6 cm, most consistent with large pseudocyst. There is a component that extends to the left paracolic gutter." Exam/Review of Systems Vital Signs Vitals Vital Signs Date Time Temp Pulse Resp B/P Pulse Ox O2 Delivery O2 Flow Rate FiO2 06/03/17 12:11 101 06/03/17 11:56 98.9 19 114/78 97 Intake and Output 06/02/17 06/02/17 06/03/17 14:59 22:59 06:59 Intake Total 2850 ml 1100 ml Output Total 3500 ml Balance -650 ml 1100 ml Exam Constitutional: alert, oriented, well developed Psych: nl mood/affect, no complaints Head: atraumatic, normocephalic Eyes: EOMI, PERRL, nl conjunctiva, nl lids, nl sclera ENMT: nl external ears & nose, nl lips & teeth, nl nasal mucosa & septum Neck: non-tender, supple Respiratory: clear to auscultation, normal air movement Cardiovascular: nl pulses, regular rate and rhythm Gastrointestinal: nl liver, spleen, non-tender, soft Musculoskeletal: nl extremities to inspection, nl gait and stance Extremities: normal pulses Neurological: WATERPROOFER II-XII intact, nl mental status, nl speech, nl strength Skin: nl turgor, No rash or lesions Lymph: nl lymph nodes Results Result Diagram: 06/03/17 0649 06/03/17 0649 Results 24 hrs Laboratory Tests Test 06/03/17 06:49 White Blood Count 14.9 H Red Blood Count 4.27 L Hemoglobin 12.8 L Hematocrit 37.7 L Mean Corpuscular Volume 88.3 Mean Corpuscular Hemoglobin 30.0 Mean Corpuscular Hemoglobin Concent 34.0 Red Cell Distribution Width 13.0 Platelet Count 475 H Mean Platelet Volume 9.8 Neutrophils % 70.7 Lymphocytes % 14.9 L Monocytes % 10.3 Eosinophils % 1.4 Basophils % 0.2 Nucleated Red Blood Cells % 0.0 Neutrophils # 10.5 H Lymphocytes # 2.2 Monocytes # 1.5 H Eosinophils # 0.2 Basophils # 0.0 Nucleated Red Blood Cells # 0.0 Sodium Level 134 L Potassium Level 4.0 Chloride Level 95 L Carbon Dioxide Level 31 Anion Gap 12 Blood Urea Nitrogen 6 L Creatinine 0.63 Glucose Level 142 Calcium Level 8.9 Total Bilirubin 1.2 Direct Bilirubin 0.00 Indirect Bilirubin 1.2 H Aspartate Amino Transf (AST/SGOT) 79 H Alanine Aminotransferase (ALT/SGPT) 200 H Alkaline Phosphatase 123 H Total Protein 7.1 Albumin 3.0 L Globulin 4.10 H Albumin/Globulin Ratio 0.73 Medications Medications Current Medications Ondansetron HCl (Zofran Inj) 4 mg Q6H PRN IV NAUSEA AND/OR VOMITING Last administered on 06/02/17 13:53; Admin Dose 4 MG; Start 05/23/17 at 23:30 Acetaminophen (Tylenol Tab) 650 mg Q6H PRN PO PAIN LEVEL 1-3 OR FEVER Last administered on 05/30/17 18:12; Admin Dose 650 MG; Start 05/23/17 at 23:30 Hydromorphone HCl (Dilaudid) 0.5 mg Q4H PRN IV SEVERE PAIN LEVEL 7-10 Last administered on 05/31/17 11:27; Admin Dose 0.5 MG; Start 05/23/17 at 23:30 Hydromorphone HCl 1 mg 1 mg Q3H PRN IV PAIN Last administered on 06/03/17 14: 58; Admin Dose 1 MG; Start 05/24/17 at 04:15 Acetaminophen 100 ml @ 400 mls/hr Q6H PRN IVPB FEVER Last administered on 05/29 16:45; Admin Dose 400 MLS/HR; Start 05/24/17 at 21:00 Dextrose/Sodium Chloride 1,000 ml @ 200 mls/hr Q5H IV Last administered on 10:30; Admin Dose 200 MLS/HR; Start 05/24/17 at 23:30 Meropenem/Sodium Chloride (Merrem 1 Gm/50 ml (Pmx)) 50 ml @ 100 mls/hr Q8 IVPB Last administered on 06/03/17 14:48; Admin Dose 100 MLS/HR; Start 05/25/17 at 07:00 Pantoprazole (Protonix Iv) 40 mg BID IV Last administered on 06/03/17 08:43; Admin Dose 40 MG; Start 05/25/17 at 14:00 Metoclopramide HCl (Reglan) 10 mg Q6H IV Last administered on 06/03/17 10:30 ; Admin Dose 10 MG; Start 05/25/17 at 17:30 Simethicone (Mylicon) 80 mg QID PRN GTB DISTENSION/GAS/BLOATING Last administered on 05/31/17 15:22; Admin Dose 80 MG; Start 05/31/17 at 11:00 TIP STILES MD Jun 03, 2017 15:52
[2017-06-03] MEDS: HYDROmorphONE 0.5 MG/0.5 ML SYG IV PRN (22:17)
[2017-06-04] MEDS: HYDROmorphONE 1 MG/ML SYG IV PRN ×3 (00:54→08:05)
[2017-06-04 01:45] VITALS: BP 119/76; RESP 18
[2017-06-04] MEDS: DEXTROSE 5%-0.45% NACL 1,000 ML IV SCH ×3 (03:23→13:32)
[2017-06-04] MEDS: MEROPENEM 1 GM/50ML(PMX) 50 ML IVPB SCH ×2 (06:01→13:56)
[2017-06-04] MEDS: METOCLOPRAMIDE 10 MG INJ IV SCH ×4 (06:01→23:14)
[2017-06-04 06:35] LABS: ALBUMIN 3.1 g/dl (3.3-4.9); ALBUMIN/GLOBULIN RATIO 0.72; CALCIUM 9.1 mg/dl (8.4-10.2); CREATININE 0.68 mg/dl (0.61-1.24); TOTAL PROTEIN 7.4 g/dl (6.1-8.1)
[2017-06-04 08:00] VITALS: BP 114/69; RESP 18
[2017-06-04] MEDS: PANTOPRAZOLE 40 MG INJ IV SCH (08:05)
--- NOTE | 2017-06-04 09:46 | PN ---
Date/Time of Note Date/Time of Note DATE: 06/04/17 TIME: 09:44 Assessment/Plan VTE Prophylaxis VTE Prophylaxis Intervention: SCD's Lines/Catheters IV [facility] ([facility] Peripheral IV Urinary Cath still in place: No Assessment/Plan Chief Complaint/Hosp Course Chief Complaint/Hosp Course Assessment: Acute severe pancreatitis poss alcoholic Cholelithiasis No evidence of choledocholithiasis Leucocytosis/trending down Plan: Pt on full liquid diet- advance if tolerating D/c IVF when tolerating po well Encourage use of IS Consider changing pain medication from Dilaudid to tramadol CT abd/pelvis findings most consistent with large pseudocyst, cholelithiasis Pt seen in collaboration with Dr. Schultz Subjective: Course reviewed with nursing staff Patient interviewed and examined All labs, imaging and other results reviewed Discussed results of ct abd/pelvis with patient, he states pain is unchanged from yesterday, will continue to monitor lab work-up although with evidence of pseudocyst lipase will remain elevated. If tolerating diet well, plan to increase. Recommend changing Dilaudid to Tramadol. General: well developed, well nourished, alert and oriented x3 , Skin: No lesions, no stigmata chronic liver disease, no evidence of bleeding diathesis Lymphatic: No palpable lymphadenopathy HEENT: No lesions Cardiovascular: Heart: Tachycardia Respiratory: Lungs clear to auscultation Gastrointestinal and Liver: Abdomen: Soft, moderate diffuse tenderness, moderately distended, no hernias, no masses, no organomegaly, no ascites, positive guarding, no rebound tenderness, normoactive bowel sounds. Extremities: No cyanosis, clubbing, or edema. Problems: Exam/Review of Systems Vital Signs Vitals Vital Signs Date Time Temp Pulse Resp B/P Pulse Ox O2 Delivery O2 Flow Rate FiO2 06/04/17 08:00 98.7 94 18 114/69 97 Intake and Output 06/03/17 06/03/17 06/04/17 14:59 22:59 06:59 Intake Total 300 ml 4500 ml 800 ml Output Total 1100 ml 900 ml 1200 ml Balance -800 ml 3600 ml -400 ml Results Result Diagram: 06/03/17 0649 06/04/17 0447 Results 24 hrs Laboratory Tests Test 06/04/17 04:47 Sodium Level 138 Potassium Level 4.0 Chloride Level 95 L Carbon Dioxide Level 31 Anion Gap 16 Blood Urea Nitrogen 8 Creatinine 0.68 Glucose Level 126 Calcium Level 9.1 Total Bilirubin 1.0 Direct Bilirubin 0.00 Indirect Bilirubin 1.0 Aspartate Amino Transf (AST/SGOT) 70 H Alanine Aminotransferase (ALT/SGPT) 161 H Alkaline Phosphatase 123 H Total Protein 7.4 Albumin 3.1 L Globulin 4.30 H Albumin/Globulin Ratio 0.72 Lipase 403 H Medications Medications Current Medications Ondansetron HCl (Zofran Inj) 4 mg Q6H PRN IV NAUSEA AND/OR VOMITING Last administered on 06/02/17 13:53; Admin Dose 4 MG; Start 05/23/17 at 23:30 Acetaminophen (Tylenol Tab) 650 mg Q6H PRN PO PAIN LEVEL 1-3 OR FEVER Last administered on 05/30/17 18:12; Admin Dose 650 MG; Start 05/23/17 at 23:30 Hydromorphone HCl (Dilaudid) 0.5 mg Q4H PRN IV SEVERE PAIN LEVEL 7-10 Last administered on 06/03/17 22:17; Admin Dose 0.5 MG; Start 05/23/17 at 23:30 Hydromorphone HCl 1 mg 1 mg Q3H PRN IV PAIN Last administered on 06/04/17 08: 05; Admin Dose 1 MG; Start 05/24/17 at 04:15 Acetaminophen 100 ml @ 400 mls/hr Q6H PRN IVPB FEVER Last administered on 05/29 16:45; Admin Dose 400 MLS/HR; Start 05/24/17 at 21:00 Dextrose/Sodium Chloride 1,000 ml @ 200 mls/hr Q5H IV Last administered on 03:23; Admin Dose 200 MLS/HR; Start 05/24/17 at 23:30 Meropenem/Sodium Chloride (Merrem 1 Gm/50 ml (Pmx)) 50 ml @ 100 mls/hr Q8 IVPB Last administered on 06/04/17 06:01; Admin Dose 100 MLS/HR; Start 05/25/17 at 07:00 Pantoprazole (Protonix Iv) 40 mg BID IV Last administered on 06/04/17 08:05; Admin Dose 40 MG; Start 05/25/17 at 14:00 Metoclopramide HCl (Reglan) 10 mg Q6H IV Last administered on 06/04/17 06:01 ; Admin Dose 10 MG; Start 05/25/17 at 17:30 Simethicone (Mylicon) 80 mg QID PRN GTB DISTENSION/GAS/BLOATING Last administered on 05/31/17 15:22; Admin Dose 80 MG; Start 05/31/17 at 11:00 NUPUR SHEFFIELD Jun 04, 2017 09:46
[2017-06-04] MEDS: HYDROmorphONE 0.5 MG/0.5 ML SYG IV PRN ×2 (13:32→21:29)
[2017-06-04 15:00] VITALS: BP 119/75; RESP 18
--- NOTE | 2017-06-04 15:17 | PN ---
Date/Time of Note Date/Time of Note DATE: 06/04/17 TIME: 15:15 Assessment/Plan VTE Prophylaxis VTE Prophylaxis Intervention: LMWH Lines/Catheters IV C[facility]ter Type (from [facility] Peripheral IV Urinary Cath still in place: No Assessment/Plan Chief Complaint/Hosp Course 21 yo male with necrotizing pancreatitis of unclear etiology complicated by large pseudocyst, necrosis Necrotizing pancreatitis with pancreatic pseudocyst - Tolerating full liquids, advance to regulars - Will stop IV fluids as takign adequate PO - HIDA scan is negative, patient states that he drank "2 beers and a shot" 1 week prior to onset of symptoms, unclear if pancreatitis is secondary to alcohol versus passed gallstone - Follow-up with surgery recommendations - s/p meropenem course - GI following - Managemetn of pseudocyst per GI/surgery, no indication for intervention unless patient decompensates Prophylaxis: SCDs Problems: Subjective 24 Hr Interval Summary Free Text/Dictation Feels well, tolerating diet No abd pain though receiving diluadid Exam/Review of Systems Vital Signs Vitals Vital Signs Date Time Temp Pulse Resp B/P Pulse Ox O2 Delivery O2 Flow Rate FiO2 06/04/17 15:00 98.9 101 18 119/75 95 Intake and Output 06/03/17 06/03/17 06/04/17 15:00 23:00 07:00 Intake Total 300 ml 4500 ml 800 ml Output Total 1100 ml 900 ml 1200 ml Balance -800 ml 3600 ml -400 ml Exam Constitutional: alert, oriented, well developed Psych: nl mood/affect, no complaints Head: atraumatic, normocephalic Eyes: EOMI, PERRL, nl conjunctiva, nl lids, nl sclera ENMT: nl external ears & nose, nl lips & teeth, nl nasal mucosa & septum Neck: non-tender, supple Respiratory: clear to auscultation, normal air movement Cardiovascular: nl pulses, regular rate and rhythm Gastrointestinal: nl liver, spleen, non-tender, soft Musculoskeletal: nl extremities to inspection, nl gait and stance Extremities: normal pulses Neurological: FIELD SERVICE ANALYST II-XII intact, nl mental status, nl speech, nl strength Skin: nl turgor, No rash or lesions Lymph: nl lymph nodes Results Result Diagram: 06/03/17 0649 06/04/17 0447 Results 24 hrs Laboratory Tests Test 06/04/17 04:47 Sodium Level 138 Potassium Level 4.0 Chloride Level 95 L Carbon Dioxide Level 31 Anion Gap 16 Blood Urea Nitrogen 8 Creatinine 0.68 Glucose Level 126 Calcium Level 9.1 Total Bilirubin 1.0 Direct Bilirubin 0.00 Indirect Bilirubin 1.0 Aspartate Amino Transf (AST/SGOT) 70 H Alanine Aminotransferase (ALT/SGPT) 161 H Alkaline Phosphatase 123 H Total Protein 7.4 Albumin 3.1 L Globulin 4.30 H Albumin/Globulin Ratio 0.72 Lipase 403 H Medications Medications Current Medications Ondansetron HCl (Zofran Inj) 4 mg Q6H PRN IV NAUSEA AND/OR VOMITING Last administered on 06/02/17 13:53; Admin Dose 4 MG; Start 05/23/17 at 23:30 Acetaminophen (Tylenol Tab) 650 mg Q6H PRN PO PAIN LEVEL 1-3 OR FEVER Last administered on 05/30/17 18:12; Admin Dose 650 MG; Start 05/23/17 at 23:30 Hydromorphone HCl 0.5 mg 0.5 mg Q4H PRN IV SEVERE PAIN LEVEL 7-10 Last administered on 06/04/17 13:32; Admin Dose 0.5 MG; Start 05/23/17 at 23:30 Meropenem/Sodium Chloride (Merrem 1 Gm/50 ml (Pmx)) 50 ml @ 100 mls/hr Q8 IVPB Last administered on 06/04/17 13:56; Admin Dose 100 MLS/HR; Start 05/25/17 at 07:00 Pantoprazole (Protonix Iv) 40 mg BID IV Last administered on 06/04/17 08:05; Admin Dose 40 MG; Start 05/25/17 at 14:00 Metoclopramide HCl (Reglan) 10 mg Q6H IV Last administered on 06/04/17 11:02 ; Admin Dose 10 MG; Start 05/25/17 at 17:30 Simethicone (Mylicon) 80 mg QID PRN GTB DISTENSION/GAS/BLOATING Last administered on 05/31/17 15:22; Admin Dose 80 MG; Start 05/31/17 at 11:00 Acetaminophen/ Hydrocodone Bitart ([place] (5/325)) 1 tab Q4H PRN PO pain; Start 06/04/17 at 15:30; Status TIP CASTELLON MD 13, 2017 15:17
[2017-06-04] MEDS: HYDROCODONE/APAP (5/325) TAB PO PRN ×2 (18:06→23:14)
[2017-06-04 20:01] VITALS: BP 106/60; RESP 20
[2017-06-05 01:42] VITALS: BP 109/71; RESP 20
[2017-06-05] MEDS: HYDROmorphONE 0.5 MG/0.5 ML SYG IV PRN ×3 (01:59→18:44)
[2017-06-05] MEDS: METOCLOPRAMIDE 10 MG INJ IV SCH ×2 (07:00→10:44)
[2017-06-05 07:41] VITALS: BP 106/68; RESP 18
[2017-06-05] MEDS: HYDROCODONE/APAP (5/325) TAB PO PRN ×3 (10:45→21:02)
--- NOTE | 2017-06-05 11:03 | PN ---
Date/Time of Note Date/Time of Note DATE: 06/05/17 TIME: 10:59 Assessment/Plan VTE Prophylaxis VTE Prophylaxis Intervention: SCD's Lines/Catheters [facility]from [facility] Saline Lock Urinary Cath still in place: No Assessment/Plan Chief Complaint/Hosp Course Chief Complaint/Hosp Course Assessment: Acute severe pancreatitis with pancreatic pseudocyst poss r/t alcoholic Cholelithiasis No evidence of choledocholithiasis Leucocytosis/trending down Plan: Tolerating Regular diet well IVF have been d/c'd Encourage use of IS Encourage ambulation Pt will need f/u CT in 6 weeks to reassess pancreatic pseudocyst Pt seen in collaboration with Dr. Schultz Subjective: Course reviewed with nursing staff Patient interviewed and examined All labs, imaging and other results reviewed Pt continues to improve, now walking around in room, he states pain is stable, Dilaudid has been decreased, and po [place] has been started. Pt will need to f/u ct abd/pelvis in 6 weeks General: well developed, well nourished, alert and oriented x3 , Skin: No lesions, no stigmata chronic liver disease, no evidence of bleeding diathesis Lymphatic: No palpable lymphadenopathy HEENT: No lesions Cardiovascular: Heart: Tachycardia Respiratory: Diminished Gastrointestinal and Liver: Abdomen: Soft, moderate diffuse tenderness, moderately distended, no hernias, no masses, no organomegaly, no ascites, positive guarding, no rebound tenderness, normoactive bowel sounds. Extremities: No cyanosis, clubbing, or edema. Problems: Exam/Review of Systems Vital Signs Vitals Vital Signs Date Time Temp Pulse Resp B/P Pulse Ox O2 Delivery O2 Flow Rate FiO2 06/05/17 07:41 98.2 84 18 106/68 94 Intake and Output 06/04/17 06/04/17 06/05/17 15:00 23:00 07:00 Intake Total 450 ml 840 ml 300 ml Output Total 950 ml 600 ml Balance 450 ml -110 ml -300 ml Results Result Diagram: 06/03/17 0649 06/04/17 0447 Medications Medications Current Medications Ondansetron HCl (Zofran Inj) 4 mg Q6H PRN IV NAUSEA AND/OR VOMITING Last administered on 06/02/17t 13:53; Admin Dose 4 MG; Start 05/23/17 at 23:30 Acetaminophen (Tylenol Tab) 650 mg Q6H PRN PO PAIN LEVEL 1-3 OR FEVER Last administered on 05/30/17 18:12; Admin Dose 650 MG; Start 05/23/17 at 23:30 Hydromorphone HCl (Dilaudid) 0.5 mg Q4H PRN IV SEVERE PAIN LEVEL 7-10 Last administered on 06/05/17 06:26; Admin Dose 0.5 MG; Start 05/23/17 at 23:30 Metoclopramide HCl (Reglan) 10 mg Q6H IV Last administered on 06/05/17 10:44 ; Admin Dose 10 MG; Start 05/25/17 at 17:30 Simethicone (Mylicon) 80 mg QID PRN GTB DISTENSION/GAS/BLOATING Last administered on 05/31/17 15:22; Admin Dose 80 MG; Start 05/31/17 at 11:00 Acetaminophen/ Hydrocodone Bitart ([place] (5/325)) 1 tab Q4H PRN PO pain Last administered on 06/05/17 10:45; Admin Dose 1 TAB; Start 06/04/17 at 15:30 NUPUR SHEFFIELD Jun 05, 2017 11:03
--- NOTE | 2017-06-05 17:10 | PN ---
Date/Time of Note Date/Time of Note DATE: 06/05/17 TIME: 17:08 Assessment/Plan VTE Prophylaxis VTE Prophylaxis Intervention: LMWH Lines/Catheters IV Catheter Type (from [facility]): Saline Lock Urinary Cath still in place: No Assessment/Plan Chief Complaint/Hosp Course 21 yo male with necrotizing pancreatitis of unclear etiology complicated by large pseudocyst, necrosis Necrotizing pancreatitis with pancreatic pseudocyst - Tolerating full liquids, advance to regulars - Will stop IV fluids as takign adequate PO - HIDA scan is negative, patient states that he drank "2 beers and a shot" 1 week prior to onset of symptoms, unclear if pancreatitis is secondary to alcohol versus passed gallstone - s/p meropenem course - Management of pseudocyst per GI/surgery, no indication for intervention unless patient decompensates. Keep in house to monitor for decompensation Prophylaxis: SCDs Problems: Subjective 24 Hr Interval Summary Free Text/Dictation Tolerating regular diet PO Pain controlled on less dilaudid Exam/Review of Systems Vital Signs Vitals Vital Signs Date Time Temp Pulse Resp B/P Pulse Ox O2 Delivery O2 Flow Rate FiO2 06/05/17 07:41 98.2 84 18 106/68 94 Intake and Output 06/04/17 06/04/17 06/05/17 14:59 22:59 06:59 Intake Total 1290 ml 300 ml Output Total 950 ml 600 ml Balance 340 ml -300 ml Exam Constitutional: alert, oriented, well developed Psych: nl mood/affect, no complaints Head: atraumatic, normocephalic Eyes: EOMI, PERRL, nl conjunctiva, nl lids, nl sclera ENMT: nl external ears & nose, nl lips & teeth, nl nasal mucosa & septum Neck: non-tender, supple Respiratory: clear to auscultation, normal air movement Cardiovascular: nl pulses, regular rate and rhythm Gastrointestinal: nl liver, spleen, non-tender, soft Musculoskeletal: nl extremities to inspection, nl gait and stance Extremities: normal pulses Neurological: LIVING SPECIALIST II-XII intact, nl mental status, nl speech, nl strength Skin: nl turgor, No rash or lesions Lymph: nl lymph nodes Results Result Diagram: 06/03/17 0649 06/04/17 0447 Medications Medications Current Medications Ondansetron HCl (Zofran Inj) 4 mg Q6H PRN IV NAUSEA AND/OR VOMITING Last administered on 06/02/17 13:53; Admin Dose 4 MG; Start 05/23/17 at 23:30 Acetaminophen (Tylenol Tab) 650 mg Q6H PRN PO PAIN LEVEL 1-3 OR FEVER Last administered on 05/30/17 18:12; Admin Dose 650 MG; Start 05/23/17 at 23:30 Simethicone (Mylicon) 80 mg QID PRN GTB DISTENSION/GAS/BLOATING Last administered on 05/31/17 15:22; Admin Dose 80 MG; Start 05/31/17 at 11:00 Acetaminophen/ Hydrocodone Bitart ([place] (5/325)) 1 tab Q4H PRN PO pain Last administered on 06/05/17 15:19; Admin Dose 1 TAB; Start 06/04/17 at 15:30 Hydromorphone HCl (Dilaudid) 0.5 mg Q8H PRN IV SEVERE PAIN LEVEL 7-10; Start 06/05/17 at 19:30 TIP STILES MD Jun 05, 2017 17:10
[2017-06-05 20:20] VITALS: BP 115/71; RESP 19
[2017-06-06] MEDS: HYDROCODONE/APAP (5/325) TAB PO PRN ×3 (01:04→14:27)
[2017-06-06 02:37] VITALS: BP 108/65; RESP 18
[2017-06-06] MEDS: HYDROmorphONE 0.5 MG/0.5 ML SYG IV PRN (04:33)
[2017-06-06 05:59] LABS: ALBUMIN 3.4 g/dl (3.3-4.9); ALBUMIN/GLOBULIN RATIO 0.75; BILIRUBIN,INDIRECT 0.7 mg/dl (0-1.1); BILIRUBIN,TOTAL 0.7 mg/dl (0.2-1.3); CALCIUM 9.5 mg/dl (8.4-10.2); CREATININE 0.66 mg/dl (0.61-1.24); POTASSIUM 4.2 mmol/L (3.5-5.1); TOTAL PROTEIN 7.9 g/dl (6.1-8.1)
[2017-06-06 07:46] LABS: BASOPHILS % 0.4 % (0.0-2.0); EOSINOPHILS # 0.3 10^3/ul (0.0-0.5); EOSINOPHILS % 2.5 % (0.0-7.0); HEMATOCRIT 39.3 % (42.0-52.0); HEMOGLOBIN 12.9 g/dl (14.0-18.0); LYMPHOCYTES # 2.7 10^3/ul (0.8-2.9); LYMPHOCYTES % 25.7 % (18.0-55.0); MEAN CORPUSCULAR HEMOGLOBIN 29.1 pg (29.0-33.0); MEAN CORPUSCULAR HGB CONC 32.8 g/dl (32.0-37.0); MEAN CORPUSCULAR VOLUME 88.5 fl (72.0-104.0); MEAN PLATELET VOLUME 9.8 fl (7.4-10.4); MONOCYTES % 9.5 % (0.0-13.0); NEUTROPHIL # 6.3 10^3/ul (1.6-7.5); NEUTROPHILS % 60.6 % (30.0-74.0); PLATELET COUNT 618 10^3/UL (140-415); RED BLOOD COUNT 4.44 10^6/ul (4.70-6.10); RED CELL DISTRIBUTION WIDTH 12.8 % (11.5-14.5); WHITE BLOOD COUNT 10.4 10^3/ul (4.8-10.8)
[2017-06-06 07:57] VITALS: BP 105/56; RESP 19
--- NOTE | 2017-06-06 13:44 | PN ---
Date/Time of Note Date/Time of Note DATE: 06/06/17 TIME: 13:19 Assessment/Plan VTE Prophylaxis VTE Prophylaxis Intervention: ambulation Lines/Catheters IV Catheter Type (from [facility]): Saline Lock Urinary Cath still in place: No Assessment/Plan Chief Complaint/Hosp Course Assessment: Acute severe pancreatitis with pancreatic pseudocyst Cholelithiasis No evidence of choledocholithiasis Liver enzymes trending down Plan: Tolerating Regular diet well Encourage use of IS Encourage ambulation Pt will need f/u CT in 6 weeks to reassess pancreatic pseudocyst Pt seen in collaboration with Dr. Schultz Subjective: Course reviewed with nursing staff Patient interviewed and examined All laboratory tests and imaging results reviewed Pt is feeling well, now walking around in room, encouraged to walk the hallways. Pain management is adequate. Patient is eating regular diet but does not have much appetite. Upon examination patient still has a lot of tenderness in the upper abdomen. Possible discharge on Friday. Recommend the patient to follow-up with CT of abdomen and pelvis in 6 weeks Exam: General: well developed, well nourished, alert and oriented x3 , Skin: No lesions, no stigmata chronic liver disease, no evidence of bleeding diathesis Lymphatic: No palpable lymphadenopathy HEENT: No lesions Cardiovascular: Heart: Tachycardia Respiratory: Lungs clear to auscultation and percussion, Gastrointestinal and Liver: Abdomen: Soft, moderate diffuse tenderness in the right and left upper quadrant and mid epigastric region, moderately distended, no hernias, no masses, no organomegaly, no ascites, positive guarding, no rebound tenderness, normoactive bowel sounds. Extremities: No cyanosis, clubbing, or edema. Problems: Exam/Review of Systems Vital Signs Vitals Vital Signs Date Time Temp Pulse Resp B/P Pulse Ox O2 Delivery O2 Flow Rate FiO2 06/06/17 07:57 98.8 81 19 105/56 95 Intake and Output 06/05/17 06/05/17 06/06/17 15:00 23:00 07:00 Intake Total 1720 ml 450 ml Balance 1720 ml 450 ml Results Result Diagram: 06/06/17 0428 06/06/17 0428 Results 24 hrs Laboratory Tests Test 06/06/17 04:28 White Blood Count 10.4 # Red Blood Count 4.44 L Hemoglobin 12.9 L Hematocrit 39.3 L Mean Corpuscular Volume 88.5 Mean Corpuscular Hemoglobin 29.1 Mean Corpuscular Hemoglobin Concent 32.8 Red Cell Distribution Width 12.8 Platelet Count 618 #H Mean Platelet Volume 9.8 Neutrophils % 60.6 Lymphocytes % 25.7 Monocytes % 9.5 Eosinophils % 2.5 Basophils % 0.4 Nucleated Red Blood Cells % 0.0 Neutrophils # 6.3 Lymphocytes # 2.7 Monocytes # 1.0 H Eosinophils # 0.3 Basophils # 0.0 Nucleated Red Blood Cells # 0.0 Sodium Level 140 Potassium Level 4.2 Chloride Level 98 Carbon Dioxide Level 30 Anion Gap 16 Blood Urea Nitrogen 14 Creatinine 0.66 Glucose Level 102 Calcium Level 9.5 Total Bilirubin 0.7 Direct Bilirubin 0.00 Indirect Bilirubin 0.7 Aspartate Amino Transf (AST/SGOT) 65 H Alanine Aminotransferase (ALT/SGPT) 134 H Alkaline Phosphatase 122 H Total Protein 7.9 Albumin 3.4 Globulin 4.50 H Albumin/Globulin Ratio 0.75 Medications Medications Current Medications Ondansetron HCl (Zofran Inj) 4 mg Q6H PRN IV NAUSEA AND/OR VOMITING Last administered on 06/02/17 13:53; Admin Dose 4 MG; Start 05/23/17 at 23:30 Acetaminophen (Tylenol Tab) 650 mg Q6H PRN PO PAIN LEVEL 1-3 OR FEVER Last administered on 05/30/17 18:12; Admin Dose 650 MG; Start 05/23/17 at 23:30 Simethicone (Mylicon) 80 mg QID PRN GTB DISTENSION/GAS/BLOATING Last administered on 05/31/17 15:22; Admin Dose 80 MG; Start 05/31/17 at 11:00 Acetaminophen/ Hydrocodone Bitart ([place] (5/325)) 1 tab Q4H PRN PO pain Last administered on 06/06/17 06:33; Admin Dose 1 TAB; Start 06/04/17 at 15:30 Hydromorphone HCl (Dilaudid) 0.5 mg Q8H PRN IV SEVERE PAIN LEVEL 7-10 Last administered on 06/06/17 04:33; Admin Dose 0.5 MG; Start 06/05/17 at 19:30 Copies To: CC: KATHY SCHULTZ MD, ANASTASIA NP Jun 06, 2017 13:44
[2017-06-06 14:29] VITALS: BP 108/67; PULSE 88; RESP 18
--- NOTE | 2017-06-06 14:36 | PN ---
Date/Time of Note Date/Time of Note DATE: 06/06/17 TIME: 14:35 Assessment/Plan VTE Prophylaxis VTE Prophylaxis Intervention: LMWH Lines/Catheters IV Catheter Type (from [facility]): Saline Lock Urinary Cath still in place: No Assessment/Plan Chief Complaint/Hosp Course 21 yo male with necrotizing pancreatitis of unclear etiology complicated by large pseudocyst, necrosis Necrotizing pancreatitis with pancreatic pseudocyst - Tolerating regular diet - Stopoped IV fluids as takign adequate PO - HIDA scan is negative, patient states that he drank "2 beers and a shot" 1 week prior to onset of symptoms, unclear if pancreatitis is secondary to alcohol versus passed gallstone - s/p meropenem course - Management of pseudocyst per GI/surgery, no indication for intervention unless patient decompensates - Likely dc over the weekend - Repeat CT scan in coming month Prophylaxis: SCDs Problems: Subjective 24 Hr Interval Summary Free Text/Dictation Tolerating diet, feeling well, pain is controlled Exam/Review of Systems Vital Signs Vitals Vital Signs Date Time Temp Pulse Resp B/P Pulse Ox O2 Delivery O2 Flow Rate FiO2 06/06/17 14:29 98.1 88 18 108/67 97 Room Air Intake and Output 06/05/17 06/05/17 06/06/17 15:00 23:00 07:00 Intake Total 1720 ml 450 ml Balance 1720 ml 450 ml Exam Constitutional: alert, oriented, well developed Psych: nl mood/affect, no complaints Head: atraumatic, normocephalic Eyes: EOMI, PERRL, nl conjunctiva, nl lids, nl sclera ENMT: nl external ears & nose, nl lips & teeth, nl nasal mucosa & septum Neck: non-tender, supple Respiratory: clear to auscultation, normal air movement Cardiovascular: nl pulses, regular rate and rhythm Gastrointestinal: nl liver, spleen, non-tender, soft Musculoskeletal: nl extremities to inspection, nl gait and stance Extremities: normal pulses Neurological: EDGING MACHINE SETTER II-XII intact, nl mental status, nl speech, nl strength Skin: nl turgor, No rash or lesions Lymph: nl lymph nodes Results Result Diagram: 06/06/178 06/06/17427 Results 24 hrs Laboratory Tests Test 06/06/17 04:28 White Blood Count 10.4 # Red Blood Count 4.44 L Hemoglobin 12.9 L Hematocrit 39.3 L Mean Corpuscular Volume 88.5 Mean Corpuscular Hemoglobin 29.1 Mean Corpuscular Hemoglobin Concent 32.8 Red Cell Distribution Width 12.8 Platelet Count 618 #H Mean Platelet Volume 9.8 Neutrophils % 60.6 Lymphocytes % 25.7 Monocytes % 9.5 Eosinophils % 2.5 Basophils % 0.4 Nucleated Red Blood Cells % 0.0 Neutrophils # 6.3 Lymphocytes # 2.7 Monocytes # 1.0 H Eosinophils # 0.3 Basophils # 0.0 Nucleated Red Blood Cells # 0.0 Sodium Level 140 Potassium Level 4.2 Chloride Level 98 Carbon Dioxide Level 30 Anion Gap 16 Blood Urea Nitrogen 14 Creatinine 0.66 Glucose Level 102 Calcium Level 9.5 Total Bilirubin 0.7 Direct Bilirubin 0.00 Indirect Bilirubin 0.7 Aspartate Amino Transf (AST/SGOT) 65 H Alanine Aminotransferase (ALT/SGPT) 134 H Alkaline Phosphatase 122 H Total Protein 7.9 Albumin 3.4 Globulin 4.50 H Albumin/Globulin Ratio 0.75 Medications Medications Current Medications Ondansetron HCl (Zofran Inj) 4 mg Q6H PRN IV NAUSEA AND/OR VOMITING Last administered on 06/02/17 13:53; Admin Dose 4 MG; Start 05/23/17 at 23:30 Acetaminophen (Tylenol Tab) 650 mg Q6H PRN PO PAIN LEVEL 1-3 OR FEVER Last administered on 05/30/17 18:12; Admin Dose 650 MG; Start 05/23/17 at 23:30 Simethicone (Mylicon) 80 mg QID PRN GTB DISTENSION/GAS/BLOATING Last administered on 05/31/17 15:22; Admin Dose 80 MG; Start 05/31/17 at 11:00 Acetaminophen/ Hydrocodone Bitart ([place] (5/325)) 1 tab Q4H PRN PO pain Last administered on 06/06/17 14:27; Admin Dose 1 TAB; Start 06/04/17 at 15:30 Hydromorphone HCl (Dilaudid) 0.5 mg Q8H PRN IV SEVERE PAIN LEVEL 7-10 Last administered on 06/06/17 04:33; Admin Dose 0.5 MG; Start 06/05/17 at 19:30 TIP STILES MD Jun 06, 2017 14:36
[2017-06-06] MEDS: HYDROmorphONE 2 MG TAB PO PRN (19:51)
[2017-06-06 20:31] VITALS: BP 110/71; PULSE 90; RESP 18
[2017-06-07] MEDS: HYDROCODONE/APAP (5/325) TAB PO PRN ×3 (00:19→19:56)
[2017-06-07 03:20] VITALS: BP 110/59; RESP 18
[2017-06-07] MEDS: HYDROmorphONE 2 MG TAB PO PRN (04:35)
[2017-06-07 08:40] VITALS: BP 105/67; RESP 18
--- NOTE | 2017-06-07 15:12 | PN ---
Date/Time of Note Date/Time of Note DATE: 06/07/17 TIME: 15:11 Assessment/Plan VTE Prophylaxis VTE Prophylaxis Intervention: heparin Lines/Catheters IV Catheter Type (from [facility]): Saline Lock Urinary Cath still in place: No Assessment/Plan Chief Complaint/Hosp Course 21 yo male with necrotizing pancreatitis of unclear etiology complicated by large pseudocyst, necrosis Necrotizing pancreatitis with pancreatic pseudocyst - Tolerating regular diet - Stopped IV fluids as taking adequate PO - HIDA scan is negative, patient states that he drank "2 beers and a shot" 1 week prior to onset of symptoms, unclear if pancreatitis is secondary to alcohol versus passed gallstone - s/p meropenem course - Management of pseudocyst per GI/surgery, no indication for intervention unless patient decompensates - Likely dc tomorrow - Repeat CT scan in coming month Prophylaxis: SCDs Problems: Subjective 24 Hr Interval Summary Free Text/Dictation No change to clinical status, doing well Exam/Review of Systems Vital Signs Vitals Vital Signs Date Time Temp Pulse Resp B/P Pulse Ox O2 Delivery O2 Flow Rate FiO2 06/07/17 08:40 98.9 85 18 105/67 97 06/06/17 20:31 Room Air Intake and Output 06/06/17 06/06/17 06/07/17 15:00 23:00 07:00 Intake Total 460 ml 1100 ml Output Total 500 ml 400 ml 1000 ml Balance -500 ml 60 ml 100 ml Exam Constitutional: alert, oriented, well developed Psych: nl mood/affect, no complaints Head: atraumatic, normocephalic Eyes: EOMI, PERRL, nl conjunctiva, nl lids, nl sclera ENMT: nl external ears & nose, nl lips & teeth, nl nasal mucosa & septum Neck: non-tender, supple Respiratory: clear to auscultation, normal air movement Cardiovascular: nl pulses, regular rate and rhythm Gastrointestinal: nl liver, spleen, non-tender, soft Musculoskeletal: nl extremities to inspection, nl gait and stance Extremities: normal pulses Neurological: FUND RAISER II-XII intact, nl mental status, nl speech, nl strength Skin: nl turgor, No rash or lesions Lymph: nl lymph nodes Results Result Diagram: 06/06/1742706/06/17427 Medications Medications Current Medications Ondansetron HCl (Zofran Inj) 4 mg Q6H PRN IV NAUSEA AND/OR VOMITING Last administered on 06/02/17 13:53; Admin Dose 4 MG; Start 05/23/17 at 23:30 Acetaminophen (Tylenol Tab) 650 mg Q6H PRN PO PAIN LEVEL 1-3 OR FEVER Last administered on 05/30/17 18:12; Admin Dose 650 MG; Start 05/23/17 at 23:30 Simethicone (Mylicon) 80 mg QID PRN GTB DISTENSION/GAS/BLOATING Last administered on 05/31/17 15:22; Admin Dose 80 MG; Start 05/31/17 at 11:00 Acetaminophen/ Hydrocodone Bitart ([place] (5/325)) 1 tab Q4H PRN PO pain Last administered on 06/07/17 08:33; Admin Dose 1 TAB; Start 06/04/17 at 15:30 Hydromorphone HCl (Dilaudid) 2 mg Q8H PRN PO SEVERE PAIN LEVEL 7-10 Last administered on 06/07/17 04:35; Admin Dose 2 MG; Start 06/06/17 at 15:00 TIP STILES MD Jun 07, 2017 15:11
[2017-06-07 16:00] VITALS: BP 106/66; RESP 18
--- NOTE | 2017-06-07 16:35 | PN ---
Date/Time of Note Date/Time of Note DATE: 06/07/17 TIME: 16:30 Assessment/Plan VTE Prophylaxis VTE Prophylaxis Intervention: ambulation Lines/Catheters IV C[facility] Type (from [facility]): Saline Lock Urinary Cath still in place: No Assessment/Plan Chief Complaint/Hosp Course Assessment: Acute necrotizing pancreatitis with pseudocyst Cholelithiasis No evidence of choledocholithiasis Liver enzymes trending down Plan: Possible discharge tomorrow Tolerating Regular diet well Encourage ambulation Pt will need f/u CT in 6 weeks to reassess pancreatic pseudocyst Pt seen in collaboration with Dr. Schultz Subjective: Course reviewed with nursing staff Patient interviewed and examined All laboratory tests and imaging results reviewed Pt is feeling well, feeling sleepy most of the time, encouraged to walk the hallways. Pain is subsiding, patient has not had any [place] since last night. Patient is eating regular diet. On the exam patient still having moderate tenderness in the upper abdomen with palpation. Possible discharge on Friday. Recommend the patient to follow-up with CT of abdomen and pelvis in 6 weeks Exam: General: well developed, well nourished, alert and oriented x3 , Skin: No lesions, no stigmata chronic liver disease, no evidence of bleeding diathesis Lymphatic: No palpable lymphadenopathy HEENT: No lesions Cardiovascular: Heart: Tachycardia Respiratory: Lungs clear to auscultation and percussion, Gastrointestinal and Liver: Abdomen: Soft, moderate diffuse tenderness in the upper GI region. Non distended, no hernias, no masses, no organomegaly, no ascites, positive guarding, no rebound tenderness, normoactive bowel sounds. Extremities: No cyanosis, clubbing, or edema. Problems: Exam/Review of Systems Vital Signs Vitals Vital Signs Date Time Temp Pulse Resp B/P Pulse Ox O2 Delivery O2 Flow Rate FiO2 06/07/17 16:00 98.1 94 18 106/66 97 06/06/17 20:31 Room Air Intake and Output 06/06/17 06/06/17 06/07/17 15:00 23:00 07:00 Intake Total 460 ml 1100 ml Output Total 500 ml 400 ml 1000 ml Balance -500 ml 60 ml 100 ml Results Result Diagram: 06/06/17 0428 06/06/17 042 Medications Medications Current Medications Ondansetron HCl (Zofran Inj) 4 mg Q6H PRN IV NAUSEA AND/OR VOMITING Last administered on 06/02/17 13:53; Admin Dose 4 MG; Start 05/23/17 at 23:30 Acetaminophen (Tylenol Tab) 650 mg Q6H PRN PO PAIN LEVEL 1-3 OR FEVER Last administered on 05/30/17 18:12; Admin Dose 650 MG; Start 05/23/17 at 23:30 Simethicone (Mylicon) 80 mg QID PRN GTB DISTENSION/GAS/BLOATING Last administered on 05/31/17 15:22; Admin Dose 80 MG; Start 05/31/17 at 11:00 Acetaminophen/ Hydrocodone Bitart ([place] (5/325)) 1 tab Q4H PRN PO pain Last administered on 06/07/17 08:33; Admin Dose 1 TAB; Start 06/04/17 at 15:30 Polyethylene Glycol (Miralax) 17 gm DAILY PRN PO CONSTIPATION; Start 06/07/17 at 16:00 Copies To: CC: KATHY SCHULTZ MD, ANASTASIA NP Jun 07, 2017 16:35
[2017-06-07] MEDS: POLYETHYLENE GLYCOL 17 GM PACKET PO PRN (18:05)
[2017-06-07 19:51] VITALS: BP 98/60; RESP 16
[2017-06-07 20:20] VITALS: BP 100/55; PULSE 70; RESP 18
[2017-06-08] MEDS: HYDROCODONE/APAP (5/325) TAB PO PRN ×2 (02:59→08:22)
[2017-06-08] MEDS: POLYETHYLENE GLYCOL 17 GM PACKET PO PRN (08:22)
[2017-06-08 08:30] VITALS: BP 107/76; RESP 18
--- NOTE | 2017-06-08 13:22 | PDOCDIS ---
Discharge Instructions DIAGNOSIS Discharge Diagnosis Pancreatitis CONDITION Patient Condition: Fair HOME CARE INSTRUCTIONS: Special Diet: Full liquid diet FOLLOW UP/APPOINTMENTS Follow-up Plan Make an appointment to see Dr Schultz and Dr Mercado within the next 1-2 weeks Take advil for pain Return to the hospital if you have any worsening of your abdominal pain or any other concerning symptoms DO NOT DRINK ANY ALCOHOL You should eat simple foods, low in grease and fat TIP STILES MD Jun 08, 2017 13:22
--- NOTE | 2017-06-08 13:32 | DS ---
Date/Time of Note Date/Time of Note DATE: 06/08/17 TIME: 13:29 Discharge Summary Admission/Discharge Info Admit Date/Time May 23, 2017 at 23:23 Discharge Date/Time Discharge Diagnosis Pancreatitis Patient Condition: Stable Hospital Course 21 yo male presented with abdominal pain. CT imaging showed necrotizing pancreatitis. He was treated wtih IV antibiotics and fluids. It was unclear if the pancreatitis was related to perhaps a passed gallstone versus perhaps alcohol. He reported a very small amount of alcohol use so a passed stone is probably more likely. He was seen by Dr Mercado of surgery and Marion from gastroenterology, both of whom recommended conservative management. Repeat CT scan showed a large pseudocyst and some necrosis, but given the patient's clinical stability there was no indication for surgery. Diet was slowly advanced and the patient tolerated a regular diet. He was advised to abstain from alcohol completely. He is aware of the need to follow up with Ana Schultz and Jess. He is to undergo repeat CT scan in about 6 weeks. Home Meds Active Scripts Ondansetron (Ondansetron Odt) 4 Mg Tab.rapdis, 4 MG PO Q6H Y for NAUSEA AND/OR VOMITING, #10 TAB Prov:GINA OCAMPO PA-C 05/23/17 Sucralfate* (Carafate*) 1 Gm Tab, 1 GM PO AC MEALS AND BEDTIME, #30 TAB Prov:JAMEY MONTIEL 10/09/16 Ranitidine Hcl* (Zantac*) 150 Mg Tablet, 150 MG PO BID Y for EPIGASTRIC PAIN, # 30 TAB Prov:JAMEY MONTIEL 10/09/16 Reported Medications [Denies] No Conflict Check 04/23/10 Follow-up Plan Make an appointment to see Dr Schultz and Dr Mercado within the next 1-2 weeks Take advil for pain Return to the hospital if you have any worsening of your abdominal pain or any other concerning symptoms DO NOT DRINK ANY ALCOHOL You should eat simple foods, low in grease and fat Primary Care Provider Care Physician No Primary Time spent on discharge: > 30 minutes TIP STILES MD Jun 08, 2017 13:32
--- NOTE | 2017-06-08 13:59 | PN ---
Date/Time of Note Date/Time of Note DATE: 06/08/17 TIME: 13:55 Assessment/Plan VTE Prophylaxis VTE Prophylaxis Intervention: ambulation Lines/Catheters IV [facility] Saline Lock Urinary Cath still in place: No Assessment/Plan Chief Complaint/Hosp Course Assessment: Acute necrotizing pancreatitis with pseudocyst Cholelithiasis No evidence of choledocholithiasis Plan: Patient to be discharged home today Tolerating Regular diet well Patient is ambulating Pt will need f/u CT in 6 weeks to reassess pancreatic pseudocyst Pt seen in collaboration with Dr. Schultz Subjective: Course reviewed with nursing staff Patient interviewed and examined All laboratory tests and imaging results reviewed Pt is feeling well, tolerating regular diet well, ambulating. Patient had one Tracy this morning for pain. Still no stool since Friday. Encouraged to take [id number] stool softener like Colace. On the exam patient still having mild tenderness in the upper abdomen with palpation. Patient is preparing for discharge home. Follow-up discussed with the patient and his mother. Recommend the patient to follow-up with CT of abdomen and pelvis in 6 weeks Exam: General: well developed, well nourished, alert and oriented x3 , Skin: No lesions, no stigmata chronic liver disease, no evidence of bleeding diathesis Lymphatic: No palpable lymphadenopathy HEENT: No lesions Cardiovascular: Heart: Regular rhythm, no murmurs Respiratory: Lungs clear to auscultation and percussion, Gastrointestinal and Liver: Abdomen: Soft, mild diffuse tenderness in the upper GI region. Non distended, no hernias, no masses, no organomegaly, no ascites, positive guarding, no rebound tenderness, normoactive bowel sounds. Extremities: No cyanosis, clubbing, or edema. Problems: Exam/Review of Systems Vital Signs Vitals Vital Signs Date Time Temp Pulse Resp B/P Pulse Ox O2 Delivery O2 Flow Rate FiO2 06/08/17 08:30 97.7 83 18 107/76 97 06/07/17 20:20 Room Air Intake and Output 06/07/17 06/07/17 06/08/17 15:00 23:00 07:00 Intake Total 500 ml 1400 ml Output Total 600 ml 1200 ml Balance -100 ml 200 ml Results Result Diagram: 06/06/17 0428 06/06/17 042 Medications Medications Current Medications Ondansetron HCl (Zofran Inj) 4 mg Q6H PRN IV NAUSEA AND/OR VOMITING Last administered on 06/02/17 13:53; Admin Dose 4 MG; Start 05/23/17 at 23:30 Acetaminophen (Tylenol Tab) 650 mg Q6H PRN PO PAIN LEVEL 1-3 OR FEVER Last administered on 05/30/17 18:12; Admin Dose 650 MG; Start 05/23/17 at 23:30 Simethicone (Mylicon) 80 mg QID PRN GTB DISTENSION/GAS/BLOATING Last administered on 05/31/17 15:22; Admin Dose 80 MG; Start 05/31/17 at 11:00 Acetaminophen/ Hydrocodone Bitart (Tracy (5/325)) 1 tab Q4H PRN PO pain Last administered on 06/08/17 08:22; Admin Dose 1 TAB; Start 06/04/17 at 15:30 Polyethylene Glycol (Miralax) 17 gm DAILY PRN PO CONSTIPATION Last administered on 06/08/17 08:22; Admin Dose 17 GM; Start 06/07/17 at 16:00 Copies To: CC: KATHY SCHULTZ MD, ANASTASIA NP Jun 08, 2017 13:59
== END 2017-06-08 14:15 | disposition home or self-care (01) | DRG 439 ==
LOC: FTE 19:16 → PP2 23:23 → ICU 05-24 18:55 → MS4 05-29 15:25 → MS1 06-03 18:24
PROVIDERS: ADMIT Family Medicine; ATTEND Family Medicine
DX: K85.22 Alcohol induced acute pancreatitis with infected necrosis (principal); K81.0 Acute cholecystitis; R65.10 Systemic inflammatory response syndrome (SIRS) of non-infectious origin without acute organ dysfunction; K86.3 Pseudocyst of pancreas; E87.6 Hypokalemia; R79.89 Other specified abnormal findings of blood chemistry; Z86.59 Personal history of other mental and behavioral disorders
CPT/HCPCS: 36415; 74177; 74181; 76705; 78226; 80048; 80053; 80061; 80306; 82150; 83036; 83605; 83690; 83735; 84100; 84443; 84484; 85025; 85610; 85730; 86704; 86709; 86803; 87040; 87081; 87340; 90686; 93005; 96374; 96375; 96376; A9537; C9113; J0131; J1170; J1885; J2060; J2185; J2270; J2405; J2543; J2765; J3480; J7030; J7042; J7050; Q9967

== ENCOUNTER 2017-06-13 02:51 | Inpatient (IN) | END 2017-07-12 17:00 | disposition home or self-care (01) | DRG 439 ==

== ENCOUNTER 2017-07-20 21:47 | Inpatient (IN) | END 2017-08-07 15:35 | disposition home or self-care (01) | DRG 853 ==

== ENCOUNTER 2017-08-27 11:09 | Outpatient (CLI) | END 2017-08-27 15:53 | disposition home or self-care (01) ==

== ENCOUNTER 2018-11-19 08:23 | Emergency (ER) | payer MEDICAID, OTHER ==
[~2018-11-19] VITALS: Ht 177.8 cm; Wt 66.3 kg
[~2018-11-19 08:23] MED LIST changes: -DENIES; +METO5TAB58 PO; -ONDA4TAB14 PO; +ONDA4TAB8 PO; -RANI150T9 PO; -SUCR1TAB56 PO; +TRAM50TA2 PO
[2018-11-19 08:35] VITALS: Ht 177.8 cm; Wt 66.3 kg
[2018-11-19] MEDS ORDERED: ONDANSETRON 4 MG INJ IV STA (10:39)
[2018-11-19] MEDS ORDERED: morphine 4 MG/ML VIAL IV STA (10:39)
[2018-11-19] MEDS ORDERED: SOD CHLORIDE 0.9% 1,000 ML IV STA ×2 (11:14→13:45)
[2018-11-19] MEDS ORDERED: IOHEXOL 300MG/ML 150 ML BTL ONE (12:16)
[2018-11-19] MEDS ORDERED: SOD CHLORIDE 0.9% 100 ML ONE (12:16)
[2018-11-19] MEDS ORDERED: PIPER-TAZO 3.375 GM IV (PMX) 100 ML IVPB STA (13:45)
--- NOTE | 2018-11-19 14:11 | ERD ---
ER Documentation Chief Complaint Chief Complaint LUQ PAIN STARTED 1 HOUR AGO HPI This is a very pleasant 23-year-old male that presents to the emergency department complaining of left upper quadrant abdominal pain. The patient indic ated that the pain was sudden in onset. It started 1 hour prior to arrival. He stated the pain was 10 out of 10 in intensity. He stated the pain was exacerbated with any movement and there is no alleviating factors to the pain. He stated this was similar nature to previous episode of pain that he had when diagnosed with pancreatic pseudocyst. He states the pain did not radiate to the back. He has had a decrease in appetite for the past 24 hours. He states he has had no hemoptysis no hematemesis no melanotic stools. He denies any constipation or diarrhea. The patient indicates he has had similar pain in the past. He indicates that in June 18, 2017 the patient was diagnosed with acute pancreatitis. Patient states he has no history of alcohol abuse. This had been complicated by a pancreatic pseudocyst. During that time of the next several weeks the pseudocyst had increased in size. The patient had undergone percutaneous drainage with no improvement in June 2017. The patient also underwent an uncomplicated laparoscopic-assisted cyst gastrostomy. The patient also had a pancreatic necrosectomy and cholecystectomy with abdominal lavage. This was performed on 08/26/2017. At that time there were findings of pancreatic necrosis. The patient had been seen by the surgeon Dr. Blancas perform surgical intervention on July 29, 2017 performing the above procedure of a laparoscopic assisted pancreatic necrosectomy. The patient had seen Dr. Blancas postoperative 1 month but has not had any comp occasions since that time. ROS All systems reviewed and are negative except as per history of present illness. Medications Home Meds Active Scripts Tramadol HCl (Tramadol HCl) 50 Mg Tablet, 50 MG PO Q6H PRN for PAIN, #30 TAB Prov:TYLER,CAITLYN V. FRENCH FOLDING MACHINE OPERATOR 08/07/17 Metoclopramide* (Reglan*) 5 Mg Tablet, 5 MG PO AC MEALS, #30 TAB Prov:TYLER,CAITLYN V. FRENCH FOLDING MACHINE OPERATOR 08/07/17 Ondansetron Hcl* (Zofran*) 4 Mg Tablet, 4 MG PO Q6H PRN for NAUSEA AND OR VOMITING, #30 TAB Prov:TYLER,CAITLYN V. FRENCH FOLDING MACHINE OPERATOR 08/07/17 Allergies Allergies: Coded Allergies: No Known Drug Allergy (Verified Allergy, Mild, 07/20/17) PMhx/Soc History of Surgery: Yes (cholecystectomy,removal of cyst to pancrease) Anesthesia Reaction: No Hx Neurological Disorder: No Hx Respiratory Disorders: No Hx Cardiac Disorders: No Hx Psychiatric Problems: No Hx Miscellaneous Medical Probl: Yes (pancreatitis,) Hx Alcohol Use: No Hx Substance Use: No Hx Tobacco Use: No Physical Exam Vitals Vital Signs Date Temp Pulse Resp B/P (MAP) Pulse Ox O2 O2 Flow FiO2 Time Delivery Rate 11/19/18 98.1 75 18 113/74 99 08:35 (87) Physical Exam Constitutional:Well-developed. Well-nourished. The patient appeared to be in a significant amount discomfort secondary pain. HEENT:Normocephalic. Atraumatic.Pupils were equal round reactive to light. Moist mucous membranes. Respiratory: Not using accessory muscles of respiration.Lungs were clear to auscultation bilaterally. No rhonchi. No rales. No wheezing. Cardiovascular: Regular rate regular rhythm.No murmurs. No rubs were appreciated.S1, S2 normal. Distal pulses are palpable 2+ bilaterally. GI: Abdomen was soft. Left upper quadrant tenderness with voluntary guarding. Midline vertical scar distal to the sternum. Non Distended. No pulsatile abdominal masses or bruits. No rebound. Bowel sounds were present and normal. Skin: No petechia, no purpura. No lesions on the palms or the soles of the feet. No maculopapular rash. NEURO: Patient was alert, awake, orientated x3.No facial droop. Gait observed and normal with no ataxia.Speech had regular rate and rhythm. No focal neurological deficits. Result Diagram: 11/19/1894111/19/18941 Results 24 hrs Laboratory Tests Test 11/19/18 09:42 White Blood Count 9.7 10^3/ul Red Blood Count 5.53 10^6/ul Hemoglobin 16.6 g/dl Hematocrit 50.0 % Mean Corpuscular Volume 90.4 fl Mean Corpuscular Hemoglobin 30.0 pg Mean Corpuscular Hemoglobin Concent 33.2 g/dl Red Cell Distribution Width 12.2 % Platelet Count 180 10^3/UL Mean Platelet Volume 11.8 fl Immature Granulocytes % 0.200 % Neutrophils % 68.1 % Lymphocytes % 23.0 % Monocytes % 7.0 % Eosinophils % 1.3 % Basophils % 0.4 % Nucleated Red Blood Cells % 0.0 /100WBC Immature Granulocytes # 0.020 10^3/ul Neutrophils # 6.6 10^3/ul Lymphocytes # 2.2 10^3/ul Monocytes # 0.7 10^3/ul Eosinophils # 0.1 10^3/ul Basophils # 0.0 10^3/ul Nucleated Red Blood Cells # 0.0 10^3/ul Urine Color STRAW Urine Clarity CLEAR Urine pH 6.0 Urine Specific [place] 1.013 Urine Ketones NEGATIVE mg/dL Urine Nitrite NEGATIVE mg/dL Urine Bilirubin NEGATIVE mg/dL Urine Urobilinogen NEGATIVE mg/dL Urine Leukocyte Esterase NEGATIVE Shawn/ul Urine Hemoglobin NEGATIVE mg/dL Urine Glucose NEGATIVE mg/dL Urine Total Protein NEGATIVE mg/dl Sodium Level 143 mmol/L Potassium Level 4.6 mmol/L Chloride Level 105 mmol/L Carbon Dioxide Level 29 mmol/L Anion Gap 9 Blood Urea Nitrogen 14 mg/dl Creatinine 0.70 mg/dl Est Glomerular Filtrat Rate mL/min > 60 mL/min Glucose Level 106 mg/dl Calcium Level 9.7 mg/dl Total Bilirubin 0.7 mg/dl Direct Bilirubin 0.00 mg/dl Indirect Bilirubin 0.7 mg/dl Aspartate Amino Transf (AST/SGOT) 27 IU/L Alanine Aminotransferase (ALT/SGPT) 22 IU/L Alkaline Phosphatase 136 IU/L Total Protein 9.2 g/dl Albumin 4.8 g/dl Globulin 4.40 g/dl Albumin/Globulin Ratio 1.09 Amylase Level 112 U/L Lipase 80 U/L Current Medications Medications Dose Sig/Eugenio Start Time Status Last (Trade) Ordered Route PRN Stop Time Admin Dose Reason Admin Morphine 4 mg ONCE STAT 11/19/18 DC 11/19/18 Sulfate IV 10:39 10:47 (morphine) 11/19/18 10:40 Ondansetron 4 mg ONCE STAT 11/19/18 DC 11/19/18 HCl (Zofran IV 10:39 10:47 Inj) 11/19/18 10:40 Sodium 1,000 ml @ Q1H STAT 11/19/18 DC 11/19/18 Chloride 1,000 mls/hr IV 11:14 11:27 11/19/18 12:13 IV Flush 10 ml STK-MED 11/19/18 DC 11/19/18 (NS 10 ml) ONCE .ROUTE 12:16 12:31 11/19/18 12:17 Sodium 100 ml @ ud STK-MED 11/19/18 DC 11/19/18 Chloride ONCE .ROUTE 12:16 12:33 11/19/18 12:17 Iohexol 150 ml STK-MED 11/19/18 DC 11/19/18 (Omnipaque ONCE .ROUTE 12:16 12:32 300mg/ ml) 11/19/18 12:17 Sodium 1,000 ml @ Q1H STAT 11/19/18 11/19/18 Chloride 1,000 mls/hr IV 13:45 14:14 11/19/18 14:44 Piperacillin 100 ml @ ONCE STAT 11/19/18 DC 11/19/18 Sod/ 200 mls/hr IVPB 13:45 14:14 Tazobactam 11/19/18 14:14 Sod Procedures/MDM This patient presented to the emergency department with abdominal pain and was seen and evaluated by myself. My differential diagnosis included but was not limited to abdominal aortic aneurysm, appendicitis, pancreatitis, perforated peptic ulcer, perforated viscus, Boerhaaves syndrome or visceral pain such as diverticulitis, DKA, esophagitis, hepatitis or bowel obstruction. The patient was placed on a playground monitor, continuous pulse oximetry, and IV access was established by nursing staff. Patient was given intravenous morphine and Zofran for analgesia control. The patient has a leukocytosis. Patient's pancreatic enzymes are within normal limits. The patient's alkaline phosphatase was slightly elevated. Given that the patient's pain did not improve after repeat focused physical exams by myself I do feel is necessary to repeat a CT scan of the abdomen with IV contrast. The patient did have a 12 cm pancreatic pseudocyst. There was significant mass-effect on the surrounding structures. At this time the patient was made n.p.o. He was placed on prophylactic antibiotics which was IV Zosyn. We will place a call to the surgeon aoc director combat operations officer Dr. Andrew to see if he will be able to accept the patient. If Dr. Andrew is willing to accept the patient then he will be admitted to the hospitalist. I do feel he was able to go to the medical surgical floor. Critical Care: Time: 45 minutes Treatments/Evaluations: Close monitoring and treatment of unstable vital signs, cardiorespiratory, and neurologic status, while maintaining tight balance of fluid, respiratory, and cardiac interventions. Time does not include performing any of the above billable procedures. Departure Diagnosis: Primary Impression: Pancreatic pseudocyst Condition: JENNIFFER Alston MD November 19, 2018 14:11
[2018-11-19] MEDS ORDERED: HYDROmorphONE 0.5 MG/0.5 ML SYG IV STA (19:34)
--- NOTE | 2018-11-19 20:02 | QN ---
Documentation Comment The patient was endorsed to me pending transfer. The patient has a pseudocyst that is symptomatic. I discussed the case with on-call general surgeon Dr. Andrew who states that this is a complicated case and given prior surgeries transfer to higher level of care would be appropriate. The patient had surgery with Dr. Blancas. I was able to speak to Dr. Blancas who now practices at [facility]. He has performed surgery on this patient before and will accept the case. He has contacted [facility] transfer center. They will accept the case but they do not have any beds presently. They will notify us with an available bed is made ready. Given the potential for prolonged observation stay in the emergency room we have reached out to [facility] unfortunately at this time there are no beds available at [facility]. At this point the patient will be observed in the emergency room setting until a bed can be made available at [facility] given need for higher level of care and specific surgery. Patient is hemodynamically stable and symptoms are well controlled currently. Patient endorsed oncoming provider. Observation Note: Indication: Pending placement Duration: greater than 4 hours Family history: As noted in HPI The patient was observed with serial exams over the above timeframe. The patient continued to be well-appearing, and observation continued without complication. GASTON RANGEL MD November 19, 2018 20:02
[2018-11-20] MEDS ORDERED: HYDROmorphONE 2 MG/ML SYG IV STA (00:03)
[2018-11-20] MEDS ORDERED: morphine 4 MG/ML VIAL IV STA (05:57)
[2018-11-20] MEDS ORDERED: ONDANSETRON 4 MG INJ IV STA ×2 (05:57→11:21)
[2018-11-20] MEDS ORDERED: HYDROmorphONE 1 MG/ML SYG IV STA (11:21)
[2018-11-20 13:00] VITALS: BP 111/66; PULSE 64; RESP 15
== END 2018-11-20 15:52 | disposition home or self-care (01) ==
LOC: FTE 08:23 → E/R 11-20 15:52
DX: K86.3 Pseudocyst of pancreas (principal)
CPT/HCPCS: 74177; 80053; 81003; 82150; 83690; 85025; 87040; J1170; J2270; J2405; J2543; J7030; Q9967; Z7610; 36415; 96361; 96374; 96375; 96376